=== PATIENT | female | born 1955 | race Caucasian/White ===

== ENCOUNTER 2018-09-25 09:11 | Inpatient (IN) | payer OTHER, SELFPAY ==
[2018-09-25] VITALS (15 sets, daily range): BP systolic 126–166; BP diastolic 65–85; PULSE 94–115; RESP 16–28; TEMP 36.5–38.3; O2SAT 89–94; BMI 33.8; BMI 41.2
--- NOTE | 2018-09-25 09:28 | EKG12_ITS ---
Test Reason : SOB Blood Pressure : / mmHG Vent. Rate : 101 BPM Atrial Rate : 101 BPM P-R Int : 154 ms QRS Dur : 086 ms QT Int : 348 ms P-R-T Axes : 044 -07 033 degrees QTc Int : 451 ms Sinus tachycardia Nonspecific ST abnormality Abnormal ECG Confirmed by KATHLEEN TELLEZ ([id number]), technical writer and editor CATRINA ROSA ([id number]) on 09/27/2018 10:55:45 AM Referred By: Azam Mcintyre Confirmed By:KATHLEEN TELLEZ
[2018-09-25] MEDS: Ipratropium/Albuterol Sulfate 3 ML AMPUL.NEB INHALATION ×3 (09:41→19:15)
--- NOTE | 2018-09-25 09:43 | ED.VISSUMM ---
- ER Visit Summary Date of Service: 09/25/18 Chief Complaint: Shortness of breath History of Present Illness: The patient is a 63 F who presents with shortness of breath that is been getting worse since yesterday. Patient went to an urgent care today. Patient was noted to have a pulse oximeter reading of 87% on room air at the urgent care. Patient was also noted to have a temperature of 100.2. Patient was then referred to the emergency department. Patient admits to a cough with some green and yellow sputum. Patient admits to some mild dull chest pain. Patient also admits to a sore throat and some bilateral ear pain. Physical Examination: Vital signs are stable except for mild tachycardia of 110 and a mild tachypnea of 22. Pulse oximeter is 89% on room air.. Patient is afebrile here. Patient is in no acute distress. Oral mucosa is pink and moist. Neck is supple. Trachea is midline. There is no JVD noted. Heart was regular and slightly tachycardic. Lungs showed diffuse expiratory wheezing. There is good respiratory effort noted. Abdomen is soft and nontender. Cranial nerves II through XII are intact. There are no focal motor or sensory deficits noted. Test Results: EKG showed normal sinus rhythm with a rate of 101. There are no acute ST or T wave changes noted. There are no prior EKGs available for comparison. PA and lateral chest x-rays obtained. There are changes consistent with COPD but no acute cardiopulmonary process. CBC and basic metabolic profile were essentially within normal limits. Troponin was less than 0.015. Lactate was normal at 1.8. Emergency Department Course and Treatment: Patient was given a DuoNeb aerosol here. Patient was given a dose of Tylenol for her headache and ear pain. Patient was given a repeat albuterol aerosol. Patient still felt short of breath. She still had wheezing on exam. Patient was given a third albuterol aerosol and Solu-Medrol. Case was discussed with the hospitalist. Patient will be admitted for observation to the MedSurg unit. Disposition: Admit for observation Impression: COPD exacerbation This note was generated with [employer] dictation software. It may contain incorrect words, spelling, and punctuation that were not noted in review of the chart prior to signing ED Disposition - Plan for ED Patient: Disposition: Acute Care Hospital [facility] Diagnosis: COPD exacerbation Referrals: Jevon Guzman III, MD [Primary Care Provider] -
--- NOTE | 2018-09-25 09:46 | ED.DCSUM_ITS ---
- ER Visit Summary Date of Service: 09/25/18 Chief Complaint: Shortness of breath History of Present Illness: The patient is a 63 F who presents with shortness of breath that is been getting worse since yesterday. Patient went to an urgent care today. Patient was noted to have a pulse oximeter reading of 87% on room air at the urgent care. Patient was also noted to have a temperature of 100.2. Patient was then referred to the emergency department. Patient admits to a cough with some green and yellow sputum. Patient admits to some mild dull chest pain. Patient also admits to a sore throat and some bilateral ear pain. Physical Examination: Vital signs are stable except for mild tachycardia of 110 and a mild tachypnea of 22. Pulse oximeter is 89% on room air.. Patient is afebrile here. Patient is in no acute distress. Oral mucosa is pink and moist. Neck is supple. Trachea is midline. There is no JVD noted. Heart was regular and slightly tachycardic. Lungs showed diffuse expiratory wheezing. There is good respiratory effort noted. Abdomen is soft and nontender. Cranial nerves II through XII are intact. There are no focal motor or sensory deficits noted. Test Results: EKG showed normal sinus rhythm with a rate of 101. There are no acute ST or T wave changes noted. There are no prior EKGs available for comparison. PA and lateral chest x-rays obtained. There are changes consistent with COPD but no acute cardiopulmonary process. CBC and basic metabolic profile were essentially within normal limits. Troponin was less than 0.015. Lactate was normal at 1.8. Emergency Department Course and Treatment: Patient was given a DuoNeb aerosol here. Patient was given a dose of Tylenol for her headache and ear pain. Patient was given a repeat albuterol aerosol. Patient still felt short of breath. She still had wheezing on exam. Patient was given a third albuterol aerosol and Solu-Medrol. Case was discussed with the hospitalist. Patient will be admitted for observation to the MedSurg unit. Disposition: Admit for observation Impression: COPD exacerbation This note was generated with [employer] dictation software. It may contain incorrect words, spelling, and punctuation that were not noted in review of the chart prior to signing ED Disposition - Plan for ED Patient: Disposition: Acute Care Hospital [facility] Diagnosis: COPD exacerbation Referrals: Jevon Guzman III, MD [Primary Care Provider] -
[2018-09-25 09:59] LABS: Absolute Lymphocyte Count 0.35 X10^3/ul (0.83-4.51); Absolute Neutrophil Count 8.3 X10^3/uL (2.0-7.7); Basophil# 0.01 X10^3/uL; Basophil% 0.1 % (0-1); Hematocrit 40.6 % (37-47); Hemoglobin 13.4 g/dl (12.0-15.0); Lymphocyte # 0.35 X10^3/ul (4.0); Lymphocyte % 3.7 % (19-41); Mean Corpuscular Hgb 29.8 pg (27.0-32.0); Mean Corpuscular Volume 90.4 fL (81-99); Mean Platelet Vol. 10.8 fl (6.2-12.0); Monocyte# 0.63 X10^3/uL; Monocyte% 6.7 % (0-10); Neutrophil # 8.33 X10^3/uL (2.7-7.7); Neutrophil % 89.3 % (47-70); Platelet Count 218 K/mm3 (150-450); RBC Distribution Width CV 13.3 % (11.6-14.6); RBC Distribution Width SD 44.2 fl (35.1-43.9); Red Blood Count 4.49 M/mm3 (4.2-5.4); White Blood Count 9.3 K/mm3 (4.4-11.0)
[2018-09-25 10:01] LABS: Differential Indicated SCAN CRITERIA MET; POSITIVE COUNT NO; POSITIVE DIFFERENTIAL YES; POSITIVE MORPHOLOGY NO
[2018-09-25] MEDS: Albuterol 2.5 MG/3 ML VIAL.NEB. INHALATION ×2 (10:04→11:14)
--- NOTE | 2018-09-25 10:10 | RAD_ITS ---
STUDY: X-RAY CHEST REASON FOR EXAM: Female, 63 years old. Shortness of breath. TECHNIQUE: PA and lateral views of the chest. COMPARISON: April 02, 2019. FINDINGS: Cardiac silhouette unremarkable. Pulmonary vascularity unremarkable. Aorta calcified. No focal patchy airspace opacities. No pleural effusions. COPD/hyperaeration. Bibasilar atelectasis/scarring. Upper abdomen unremarkable. Osseous structures are demineralized. No pneumothorax. Degenerative changes at the shoulders and spine. RAD/Chest PA and Lateral IMPRESSION: No acute cardiopulmonary findings COPD/hypoaeration with bibasilar atelectasis/scarring Electronically Signed: Yogesh Hammonds DO at 10:32 EDT Tel , Service support ,
[2018-09-25 10:11] LABS: Anion Gap 4 (5-15); BUN 6 mg/dL (7-18); BUN/Creat Ratio 9.1 RATIO (10-20); Calcium,Total 8.4 mg/dL (8.5-10.1); Chloride 102 mmol/L (98-107); Creatinine, Serum 0.66 mg/dL (0.55-1.02); EST Glomerular Filtration Rate 96 mL/min (>60); Est Glom Filt Rate - Afr Amer 116 mL/min (>60); Glucose 129 mg/dL (74-106); Potassium 3.6 mmol/L (3.5-5.1); Sodium Level 135 mmol/L (136-145)
[2018-09-25 10:12] LABS: Lactic Acid 1.8 mmol/L (0.4-2.0)
[2018-09-25 10:24] LABS: Differential Comment SCANNED
[2018-09-25] MEDS: Acetaminophen 500 MG Tablet 1000 MG PO (10:36)
[2018-09-25] MEDS: MethylPREDNISolone 125 MG/2 ML Vial IV (11:01)
[2018-09-25] MEDS: Morphine 4 MG/ML Syringe IV (11:55)
--- NOTE | 2018-09-25 12:05 | CASEMGMT ---
RN CM Assessment Introduced role of RN CM to patient.? Patient is alert, oriented and able?to participate in RN CM Assessment. ?Care providers, pharmacy, and demographics verified. Presentation: SOB Admit Dx: COPD/Asthma Exacerbation Re-Admit: No Barriers/Issues: None PCP: Jevon Guzman Specialists: None Preferred Pharmacy: [facility] Insurance: MMO Rx Benefit: Yes? LNOK: [facility] [place] LW/HPOA: No, Denies Offered Information, states thinks she already has the information. Living Arrangements:?Lives with her and son in a 2 story home, 4 steps to enter. ADL?s: Independent with ambulation and ADL's Transportation: Patient drives, or her sister will transport on DC DME: Nebulizer, No preference on Agency if DME needed. HHC: None SNF: None Goal: Home, does not think she will need anything, denies issues or concerns. DC PLAN: Home with possible Home O2. NIRAJ Degroot
--- NOTE | 2018-09-25 13:17 | HP.PCM_ITS ---
Problem List (1) Left acute otitis media Status: Acute (2) Asthma with COPD with exacerbation Status: Acute (3) Hypertension Status: Chronic (4) dyslipidemia Status: Chronic (5) Degenerative joint disease Status: Chronic History of Present Illness Date of Admission: 09/25/18 Chief Complaint: Shortness of breath since yesterday The patient is a 63 year old F with history of asthma came to ED with shortness of breath since day before admission. She also has cough for about 4 months and had antibiotic more than 3 months ago by PCP. She also had fever chills, productive cough with greenish-yellow sputum and interscapular pleuritic chest pain on coughing and deep inspiration. She has history of sinusitis and had sinus procedure done about 4 years ago. Complains of sore throat postnasal drip and ear pain. [] In ED, her temperature 100.9 ?F, tachycardia, 115/min, tachypnea respiratory rate 21 to 23/min and pulse ox 91% on 4 L of oxygen. Chest x-ray does not show acute infiltrate. She also had previous chest x-ray negative about 2 3 months ago by PCP. Past Medical History Past Medical History (Chronic Problems): Chronic Problems COPD exacerbation (Chronic) Hypertension (Chronic) dyslipidemia (Chronic) Degenerative joint disease (Chronic) Allergies levofloxacin [From Levaquin] Allergy (Verified 09/25/18 09:12) Rash Sulfa (Sulfonamide Antibiotics) Allergy (Verified 09/25/18 09:12) Unknown Home Medications: Ambulatory Orders Medication Instructions Recorded Albuterol IH (ProAir) [Proair Hfa 2 puff INHALATION Q4H PRN PRN 09/25/18 (SP)Vent Pts] Amlodipine [Norvasc] 10 mg PO DAILY 09/25/18 Gabapentin [Neurontin] 300 mg PO 4X/DAY PRN PRN 09/25/18 Hydrochlorothiazide 12.5 mg PO DAILY 09/25/18 Meloxicam [Mobic] 15 mg PO DAILY 09/25/18 Montelukast [Singulair] 10 mg PO DAILY 09/25/18 Simvastatin [Zocor] 20 mg PO QHS 09/25/18 Smoking Status: Former smoker - *Family History Paternal History Items: Heart Disease Review of Systems Constitutional: Denies: Chills, Fever, Weight Change HEENT: Reports: Ear Pain, Hearing Changes, Post Nasal Drip, Sinus Congestion, Sore Throat. Denies: Head Aches Cardiovascular: Reports: - - Interscapular pleuritic chest pain. Denies: Chest Pain, Palpitations Respiratory: Reports: Cough, Pleuritic Pain, Shortness of Breath, Shortness of breath upon exertion. Denies: Shortness of breath at rest, Sputum production Gastrointestinal: Denies: Abdominal Pain, Nausea, Vomiting Genitourinary: Denies: Dysuria, Frequency, Urgency Musculoskeletal: Reports: Joint Pain. Denies: Joint Tenderness Skin: Denies: Rash, Wounds Neurological: Denies: Numbness, Tingling, Focal weakness Psychiatric: Denies: Anxiety, Depression, Homicidal Ideations, Suicidal Ideations Hematologic/ Lymphatic: Denies: Easy Bruising, Easy Bleeding VTE Information - Inpt Only VTE Present on Admission: No VTE Mechan Device Prophylaxis: None VTE Pharm Prophylaxis ordered?: Yes Patient Problems: Active and Suspected Problems Left acute otitis media (Acute) Asthma with COPD with exacerbation (Acute) - Physical Exam General: Alert, Oriented x3, Cooperative HEENT: Atraumatic, PERRLA, EOMI, Normocephalic, - - On otoscopy exam, left ear TM retracted with effusion. Yellowish crust seen in left ear canal. No clear drainage. Tenderness present. Right ear: TM retracted with mild effusion but no tenderness Oral: No Gingival or Mucosal Lesions/ Ulcerations, - - No inflammation of soft palate or deep part of tongue Neck: Supple, No JVD, Negative Carotid Bruits Lungs: Diminished, Rhonchi, Short of Breath, Tachypneic, Wheezes Cardiovascular: Regular rate, Regular Rhythm, Normal S1, Normal S2, No murmurs Abdomen: Bowel Sounds Present, Soft, Non Tender, Non-Distended Extremities: Capillary Refill Less than 3 Seconds, Edema Skin: No rashes, No breakdown Musculoskeletal: No Tenderness to Palpation of Joints or Extremities, Arthritic Changes Lymphatic: No Cervical, Supraclavicular, or Inguinal Adenopathy Neurological: Cranial nerves II-XII grossly intact, Deep Tendon Reflexes 2+/4 and Symmetrical, Neuro grossly intact, Motor Exam 5/5 strength throughout Psych/Mental Status: Normal Affect, Appropriate Vital Signs Temp Pulse Resp BP Pulse Ox 99 F 106 H 23 H 136/75 H 91 09/25/18 12:10 09/25/18 12:10 09/25/18 12:10 09/25/18 12:10 09/25/18 12:10 Oxygen Flow Rate (L/min) 4 Oxygen Delivery Method Nasal Cannula Weight: 185 lb Body Mass Index (BMI) 33.8 Microbiology Past 72 Hours 09/25/18 09:47 Influenza Types A,B Direct FA (MICHELLE) - Final Mucosa - Nose Laboratory Tests Past 24 Hrs 09/25/18 09/25/18 09/25/18 09:40 09:40 09:40 WBC 9.3 RBC 4.49 Hgb 13.4 Hct 40.6 MCV 90.4 MCH 29.8 MCHC 33.0 RDW 13.3 RDW Differential 44.2 H Plt Count 218 MPV 10.8 Immature Gran % (Auto) 0.200 Neut % (Auto) 89.3 H Lymph % (Auto) 3.7 L [place] % (Auto) 6.7 Eos % (Auto) 0.0 Baso % (Auto) 0.1 Absolute Neuts (auto) 8.3 H Absolute Lymphs (auto) 0.35 L Total Counted Not Reportable Differential Comment SCANNED Sodium 135 L Potassium 3.6 Chloride 102 Carbon Dioxide 29.0 Anion Gap 4 L BUN 6 L Creatinine 0.66 Estim Creat Clear Calc 69.90 Est GFR (MDRD) Af Amer 116 Est GFR (MDRD) Non-Af 96 BUN/Creatinine Ratio 9.1 L Glucose 129 H Lactic Acid 1.8 Calcium 8.4 L Troponin I < 0.015 Assessment/Plan All Active Problems Left acute otitis media (Acute) Asthma with COPD with exacerbation (Acute) The patient is a 63 year old F with history of asthma came to ED with shortness of breath since day before admission. She also has cough for about 4 months and had antibiotic more than 3 months ago by PCP. She also had fever chills, productive cough with greenish-yellow sputum and interscapular pleuritic chest pain on coughing and deep inspiration. She has history of sinusitis and had sinus procedure done about 4 years ago. Complains of sore throat postnasal drip and ear pain. [] In ED, her temperature 100.9 ?F, tachycardia, 115/min, tachypnea respiratory rate 21 to 23/min and pulse ox 91% on 4 L of oxygen. Chest x-ray does not show acute infiltrate. She also had previous chest x-ray negative about 2 3 months ago by PCP. 1. Asthma/COPD asthmatic exacerbation: Patient is being admitted to MedSur floor. On bronchodilator, IV Solu-Medrol, incentive spirometry and chest physiotherapy. Continue Singulair sputum culture, respiratory panel have been ordered. Patient does not have leukocytosis. 2. Left acute otitis media with bilateral middle ear effusion: Started on IV Unasyn. Patient has URI symptoms. Anti-inflammatory pain medication. 3. Hyponatremia: On IV fluid normal saline. 4. Hypertension and dyslipidemia and peripheral neuropathy: Patient is on Norvasc, HCTZ and on simvastatin. Continue Neurontin. Obesity grade 3 and chronic degenerative joint disease: Patient is on Mobic. DVT prophylaxis: On Lovenox 40 mg subcu daily Clinical Impression(s) from Imaging Studies Chest X-Ray 09/25/18 10:10 IMPRESSION: No acute cardiopulmonary findings COPD/hypoaeration with bibasilar atelectasis/scarring 09/25/18 09:40: WBC 9.3, RBC 4.49, Hgb 13.4, Hct 40.6, MCV 90.4, MCH 29.8, MCHC 33.0, RDW 13.3, RDW Differential 44.2 H, Plt Count 218, MPV 10.8, Immature Gran % (Auto) 0.200, Neut % (Auto) 89.3 H, Lymph % (Auto) 3.7 L, [place] % (Auto) 6.7, Eos % (Auto) 0.0, Baso % (Auto) 0.1, Absolute Neuts (auto) 8.3 H, Absolute Lymphs (auto) 0.35 L, Total Counted Not Reportable, Differential Comment SCANNED 09/25/18 09:40: Sodium 135 L, Potassium 3.6, Chloride 102, Carbon Dioxide 29.0, Anion Gap 4 L, BUN 6 L, Creatinine 0.66, Estim Creat Clear Calc 69.90, Est GFR (MDRD) Af Amer 116, Est GFR (MDRD) Non-Af 96, BUN/Creatinine Ratio 9.1 L, Glucose 129 H, Calcium 8.4 L, Troponin I < 0.015 09/25/18 09:40: Lactic Acid 1.8 Code Visit OBSV E&M: 19352 Initial observation care L3
[2018-09-25] MEDS: 0.9% Normal Saline 1,000 ML 100 ML IV (15:46)
[2018-09-25] MEDS: guaiFENesin 1,200 MG Tablet 1200 MG PO ×2 (15:47→21:29)
[2018-09-25] MEDS: Enoxaparin 40 MG/0.4 ML Syringe SC (15:47)
[2018-09-25] MEDS: oxyCODONE 5 MG Tablet PO (19:32)
[2018-09-25] MEDS: Atorvastatin Calcium 10 MG Tablet PO (21:29)
[2018-09-25] MEDS: Gabapentin 300 MG Capsule PO (21:36)
[2018-09-26] VITALS (9 sets, daily range): BP systolic 118–142; BP diastolic 68–76; PULSE 71–92; RESP 14–20; TEMP 36.5–36.9; O2SAT 90–95
[2018-09-26 05:51] LABS: Absolute Lymphocyte Count 0.39 X10^3/ul (0.83-4.51); Absolute Neutrophil Count 8.8 X10^3/uL (2.0-7.7); Differential Indicated SCAN CRITERIA MET; Hemoglobin 12.8 g/dl (12.0-15.0); Lymphocyte # 0.39 X10^3/ul (4.0); Lymphocyte % 4.1 % (19-41); Mean Corpuscular Hgb 29.3 pg (27.0-32.0); Mean Corpuscular Volume 91.5 fL (81-99); Mean Platelet Vol. 10.8 fl (6.2-12.0); Monocyte# 0.41 X10^3/uL; Monocyte% 4.3 % (0-10); Neutrophil # 8.79 X10^3/uL (2.7-7.7); Neutrophil % 91.4 % (47-70); POSITIVE COUNT NO; POSITIVE DIFFERENTIAL YES; POSITIVE MORPHOLOGY NO; Platelet Count 211 K/mm3 (150-450); RBC Distribution Width CV 13.1 % (11.6-14.6); RBC Distribution Width SD 43.8 fl (35.1-43.9); Red Blood Count 4.37 M/mm3 (4.2-5.4); White Blood Count 9.6 K/mm3 (4.4-11.0)
[2018-09-26] MEDS: 0.9% NaCl Peripheral Flush Adult/Peds IV ×3 (06:20→22:12)
[2018-09-26] MEDS: Ipratropium/Albuterol Sulfate 3 ML AMPUL.NEB INHALATION ×5 (07:05→23:03)
[2018-09-26] MEDS: guaiFENesin 1,200 MG Tablet 1200 MG PO ×2 (09:22→22:12)
[2018-09-26] MEDS: amLODIPine 10 MG Tablet PO (09:22)
[2018-09-26] MEDS: Meloxicam 15 MG Tablet PO (09:22)
[2018-09-26] MEDS: hydroCHLOROthiazide 12.5mg 12.5 MG PO (09:22)
[2018-09-26] MEDS: Enoxaparin 40 MG/0.4 ML Syringe SC (09:22)
[2018-09-26] MEDS: Montelukast 10 MG Tablet PO (09:22)
[2018-09-26] MEDS: Acetaminophen 325 MG Tablet 650 MG PO (11:57)
[2018-09-26 12:11] LABS: Bedside Glucose 201 mg/dL (70-110)
--- NOTE | 2018-09-26 14:16 | PCM.PN.HOSP ---
Patient Problems: Active and Suspected Problems Left acute otitis media (Acute) Asthma with COPD with exacerbation (Acute) Subjective: The patient is still more short of breath and wheezing although better than yesterday. Pulse ox 93% on 3 L of oxygen. No fever or chills. Patient has history of his smoking 3 to 4 cigarettes daily for about 3 years but has history of asthma since early teenage. Vitals/I&O's: Vital Signs Temp Pulse Resp BP Pulse Ox 98.2 F 81 20 H 133/73 H 93 09/26/18 08:47 09/26/18 11:08 09/26/18 11:08 09/26/18 08:47 09/26/18 11:08 Oxygen Flow Rate (L/min) 3 Oxygen Delivery Method Nasal Cannula Weight: 225 lb 4.999 oz Body Mass Index (BMI) 41.2 Intake and Output for Last 24 Hours 09/24/18 09/25/18 09/26/18 23:59 23:59 23:59 Intake Total 807 / 807 1385 / 1385 Balance 807 / 807 1385 / 1385 General: Alert, Oriented x3, Cooperative HEENT: Atraumatic, PERRLA, EOMI, Normocephalic Neck: Supple, No JVD, Negative Carotid Bruits Lungs: Diminished, Short of Breath Cardiovascular: Regular rate, Regular Rhythm, Normal S1, Normal S2, No murmurs Abdomen: Bowel Sounds Present, Soft, Non Tender Extremities: No edema, Capillary Refill Less than 3 Seconds Skin: No rashes, No breakdown Musculoskeletal: No Tenderness to Palpation of Joints or Extremities, Arthritic Changes Lymphatic: No Cervical, Supraclavicular, or Inguinal Adenopathy Neurological: Cranial nerves II-XII grossly intact, Deep Tendon Reflexes 2+/4 and Symmetrical, Neuro grossly intact Psych/Mental Status: Normal Affect, Appropriate Microbiology Past 72 Hours 09/25/18 15:15 Sputum, Expectorated/Coughed Gram Stain - Final 09/25/18 09:47 Mucosa - Nasopharyngeal Respiratory Panel (PCR) - Final Rhinovirus 09/25/18 15:40 Urine, Random Legionella Antigen - Final 09/25/18 15:40 Urine, Random Streptococcus pneumoniae Antigen (M - Final 09/25/18 15:30 Mucosa - Throat Group A Streptococcus Rapid Screen - Preliminary 09/25/18 09:47 Mucosa - Nose Influenza Types A,B Direct FA ([facility]) - Final Laboratory Results 09/26/18 05:25: WBC 9.6, RBC 4.37, Hgb 12.8, Hct 40.0, MCV 91.5, MCH 29.3, MCHC 32.0, RDW 13.1, RDW Differential 43.8, Plt Count 211, MPV 10.8, Immature Gran % (Auto) 0.200, Neut % (Auto) 91.4 H, Lymph % (Auto) 4.1 L, [place] % (Auto) 4.3, Eos % (Auto) 0.0, Baso % (Auto) 0.0, Absolute Neuts (auto) 8.8 H, Absolute Lymphs (auto) 0.39 L, Total Counted Not Reportable 09/26/18 11:49: POC Glucose 201 H Current Medications Acetaminophen (Tylenol) 650 mg PO Q6H PRN PRN PRN Reason: Mild Pain (scale 0-3)/T>100.7 Last Admin: 09/26/18 11:57 Dose: 650 mg Albuterol Sulfate (Ventolin Aerosols) 2.5 mg INHALATION Q2H PRN PRN PRN Reason: SHORTNESS OF BREATH Albuterol/Ipratropium (Duoneb) 3 ml INHALATION Q4HWA.RT [facility] Last Admin: 09/26/18 11:08 Dose: 3 ml Amlodipine Besylate (Norvasc) 10 mg PO DAILY [facility] Last Admin: 09/26/18 09:22 Dose: 10 mg Atorvastatin Calcium (Lipitor) 10 mg PO QHS [facility] Last Admin: 09/25/18 21:29 Dose: 10 mg Bisacodyl (Dulcolax) 10 mg RECTAL DAILY PRN PRN PRN Reason: Constipation Dextrose (D50w Syringe) 0 gm IV X1 PRN; Protocol PRN Reason: Hypoglycemia Docusate Sodium (Colace) 200 mg PO BID PRN PRN PRN Reason: Constipation Enoxaparin Sodium (Lovenox) 40 mg SC DAILY [facility] Last Admin: 09/26/18 09:22 Dose: 40 mg Gabapentin (Neurontin) 300 mg PO 4X/DAY PRN PRN PRN Reason: PAIN Last Admin: 09/25/18 21:36 Dose: 300 mg Glucagon () 1 mg IM .X1 PRN PRN Reason: Hypoglycemia Guaifenesin (Mucinex) 1,200 mg PO BID [facility] Last Admin: 09/26/18 09:22 Dose: 1,200 mg Hydrochlorothiazide () 12.5 mg PO DAILY [facility] Last Admin: 09/26/18 09:22 Dose: 12.5 mg Ampicillin Sodium/Sulbactam (Sodium 3 gm/ Sodium Chloride) 112 mls @ 150 mls/hr IV Q8 [facility] Last Admin: 09/26/18 13:17 Dose: 150 mls/hr Insulin Human Lispro (Humalog Kwikpen (Bkc)) 0 unit SQ ACHS [facility]; Protocol Meloxicam (Mobic) 15 mg PO DAILY [facility] Last Admin: 09/26/18 09:22 Dose: 15 mg Methylprednisolone (Solu-Medrol) 40 mg IV Q8 [facility] Stop: 09/26/18 22:01 Last Admin: 09/26/18 13:16 Dose: 40 mg Montelukast Sodium (Singulair) 10 mg PO DAILY [facility] Last Admin: 09/26/18 09:22 Dose: 10 mg Ondansetron HCl (Zofran) 4 mg IV Q8H PRN PRN PRN Reason: Nausea Oxycodone HCl (Oxyir) 5 mg PO Q4H PRN PRN PRN Reason: Moderate Pain (pain scale 4-5) Last Admin: 09/25/18 19:32 Dose: 5 mg Prednisone () 40 mg PO DAILY@0800 [facility] Sodium Chloride () 5 - 15 ml IV UD PRN PRN Reason: SALINE FLUSH Last Admin: 09/26/18 13:17 Dose: 10 ml Medical Necessity - Tobacco Use Smoking Status: Former smoker Tobacco Use: Cigarettes Assessment/Plan All Active Problems Left acute otitis media (Acute) Asthma with COPD with exacerbation (Acute) The patient is a 63 year old F with history of asthma came to ED with shortness of breath since day before admission. She also has cough for about 4 months and had antibiotic more than 3 months ago by PCP. She also had fever chills, productive cough with greenish-yellow sputum and interscapular pleuritic chest pain on coughing and deep inspiration. She has history of sinusitis and had sinus procedure done about 4 years ago. Complains of sore throat postnasal drip and ear pain. [] In ED, her temperature 100.9 ?F, tachycardia, 115/min, tachypnea respiratory rate 21 to 23/min and pulse ox 91% on 4 L of oxygen. Chest x-ray does not show acute infiltrate. She also had previous chest x-ray negative about 2 3 months ago by PCP. 1. Asthma/COPD asthmatic exacerbation most probably secondary to rhinovirus viral bronchitis: [facility] On bronchodilator, IV Solu-Medrol, incentive spirometry and chest physiotherapy. Respiratory panel is positive for rhinovirus. Prelim Gram stain shows 4+ gram-negative coccobacillus. Urinary antigens are negative. Continue Singulair Patient does not have leukocytosis. Patient is still short of breath and wheezing and need 1-2 more days for asthma exacerbation. 2. Left acute otitis media with bilateral middle ear effusion: Started on IV Unasyn. Patient has URI symptoms. Anti-inflammatory pain medication. Follow-up with ENT Dr. Yahir Palma as an outpatient. 3. Hyponatremia: On IV fluid normal saline. Repeat BMP today 4. Hypertension and dyslipidemia and peripheral neuropathy: Patient is on Norvasc, HCTZ and on simvastatin. Continue Neurontin. Obesity grade 3 and chronic degenerative joint disease: Patient is on Mobic. DVT prophylaxis: On Lovenox 40 mg subcu daily As the patient is still symptomatic with shortness of breath and, wheezy and requires 3 L of oxygen patient needs 1 or 2 more days for treatment and patient is being converted from observation to inpatient. Clinical Impression(s) from Imaging Studies Chest X-Ray 09/25/18 10:10 IMPRESSION: No acute cardiopulmonary findings COPD/hypoaeration with bibasilar atelectasis/scarring Active Medications Acetaminophen (Tylenol) 650 mg PO Q6H PRN PRN PRN Reason: Mild Pain (scale 0-3)/T>100.7 Last Admin: 09/26/18 11:57 Dose: 650 mg Albuterol Sulfate (Ventolin Aerosols) 2.5 mg INHALATION Q2H PRN PRN PRN Reason: SHORTNESS OF BREATH Albuterol/Ipratropium (Duoneb) 3 ml INHALATION Q4HWA.RT [facility] Last Admin: 09/26/18 11:08 Dose: 3 ml Amlodipine Besylate (Norvasc) 10 mg PO DAILY [facility] Last Admin: 09/26/18 09:22 Dose: 10 mg Atorvastatin Calcium (Lipitor) 10 mg PO QHS [facility] Last Admin: 09/25/18 21:29 Dose: 10 mg Bisacodyl (Dulcolax) 10 mg RECTAL DAILY PRN PRN PRN Reason: Constipation Dextrose (D50w Syringe) 0 gm IV X1 PRN; Protocol PRN Reason: Hypoglycemia Docusate Sodium (Colace) 200 mg PO BID PRN PRN PRN Reason: Constipation Enoxaparin Sodium (Lovenox) 40 mg SC DAILY [facility] Last Admin: 09/26/18 09:22 Dose: 40 mg Gabapentin (Neurontin) 300 mg PO 4X/DAY PRN PRN PRN Reason: PAIN Last Admin: 09/25/18 21:36 Dose: 300 mg Glucagon () 1 mg IM .X1 PRN PRN Reason: Hypoglycemia Guaifenesin (Mucinex) 1,200 mg PO BID [facility] Last Admin: 09/26/18 09:22 Dose: 1,200 mg Hydrochlorothiazide () 12.5 mg PO DAILY [facility] Last Admin: 09/26/18 09:22 Dose: 12.5 mg Ampicillin Sodium/Sulbactam (Sodium 3 gm/ Sodium Chloride) 112 mls @ 150 mls/hr IV Q8 [facility] Last Admin: 09/26/18 13:17 Dose: 150 mls/hr Insulin Human Lispro (Humalog Kwikpen (Bkc)) 0 unit SQ ACHS [facility]; Protocol Meloxicam (Mobic) 15 mg PO DAILY [facility] Last Admin: 09/26/18 09:22 Dose: 15 mg Methylprednisolone (Solu-Medrol) 40 mg IV Q8 [facility] Stop: 09/26/18 22:01 Last Admin: 09/26/18 13:16 Dose: 40 mg Montelukast Sodium (Singulair) 10 mg PO DAILY [facility] Last Admin: 09/26/18 09:22 Dose: 10 mg Ondansetron HCl (Zofran) 4 mg IV Q8H PRN PRN PRN Reason: Nausea Oxycodone HCl (Oxyir) 5 mg PO Q4H PRN PRN PRN Reason: Moderate Pain (pain scale 4-5) Last Admin: 09/25/18 19:32 Dose: 5 mg Prednisone () 40 mg PO DAILY@0800 [facility] Sodium Chloride () 5 - 15 ml IV UD PRN PRN Reason: SALINE FLUSH Last Admin: 09/26/18 13:17 Dose: 10 ml Code Visit Inpatient E&M: [id number] Subs Hosp L2
--- NOTE | 2018-09-26 14:23 | PN_ITS ---
Patient Problems: Active and Suspected Problems Left acute otitis media (Acute) Asthma with COPD with exacerbation (Acute) Subjective: The patient is still more short of breath and wheezing although better than yesterday. Pulse ox 93% on 3 L of oxygen. No fever or chills. Patient has history of his smoking 3 to 4 cigarettes daily for about 3 years but has history of asthma since early teenage. Vitals/I&O's: Vital Signs Temp Pulse Resp BP Pulse Ox 98.2 F 81 20 H 133/73 H 93 09/26/18 08:47 09/26/18 11:08 09/26/18 11:08 09/26/18 08:47 09/26/18 11:08 Oxygen Flow Rate (L/min) 3 Oxygen Delivery Method Nasal Cannula Weight: 225 lb 4.999 oz Body Mass Index (BMI) 41.2 Intake and Output for Last 24 Hours 09/24/18 09/25/18 09/26/18 23:59 23:59 23:59 Intake Total 807 / 807 1385 / 1385 Balance 807 / 807 1385 / 1385 General: Alert, Oriented x3, Cooperative HEENT: Atraumatic, PERRLA, EOMI, Normocephalic Neck: Supple, No JVD, Negative Carotid Bruits Lungs: Diminished, Short of Breath Cardiovascular: Regular rate, Regular Rhythm, Normal S1, Normal S2, No murmurs Abdomen: Bowel Sounds Present, Soft, Non Tender Extremities: No edema, Capillary Refill Less than 3 Seconds Skin: No rashes, No breakdown Musculoskeletal: No Tenderness to Palpation of Joints or Extremities, Arthritic Changes Lymphatic: No Cervical, Supraclavicular, or Inguinal Adenopathy Neurological: Cranial nerves II-XII grossly intact, Deep Tendon Reflexes 2+/4 and Symmetrical, Neuro grossly intact Psych/Mental Status: Normal Affect, Appropriate Microbiology Past 72 Hours 09/25/18 15:15 Sputum, Expectorated/Coughed Gram Stain - Final 09/25/18 09:47 Mucosa - Nasopharyngeal Respiratory Panel (PCR) - Final Rhinovirus 09/25/18 15:40 Urine, Random Legionella Antigen - Final 09/25/18 15:40 Urine, Random Streptococcus pneumoniae Antigen (M - Final 09/25/18 15:30 Mucosa - Throat Group A Streptococcus Rapid Screen - Preliminary 09/25/18 09:47 Mucosa - Nose Influenza Types A,B Direct FA ([facility]) - Final Laboratory Results 09/26/18 05:25: WBC 9.6, RBC 4.37, Hgb 12.8, Hct 40.0, MCV 91.5, MCH 29.3, MCHC 32.0, RDW 13.1, RDW Differential 43.8, Plt Count 211, MPV 10.8, Immature Gran % (Auto) 0.200, Neut % (Auto) 91.4 H, Lymph % (Auto) 4.1 L, [place] % (Auto) 4.3, Eos % (Auto) 0.0, Baso % (Auto) 0.0, Absolute Neuts (auto) 8.8 H, Absolute Lymphs (auto) 0.39 L, Total Counted Not Reportable 09/26/18 11:49: POC Glucose 201 H Current Medications Acetaminophen (Tylenol) 650 mg PO Q6H PRN PRN PRN Reason: Mild Pain (scale 0-3)/T>100.7 Last Admin: 09/26/18 11:57 Dose: 650 mg Albuterol Sulfate (Ventolin Aerosols) 2.5 mg INHALATION Q2H PRN PRN PRN Reason: SHORTNESS OF BREATH Albuterol/Ipratropium (Duoneb) 3 ml INHALATION Q4HWA.RT [facility] Last Admin: 09/26/18 11:08 Dose: 3 ml Amlodipine Besylate (Norvasc) 10 mg PO DAILY [facility] Last Admin: 09/26/18 09:22 Dose: 10 mg Atorvastatin Calcium (Lipitor) 10 mg PO QHS [facility] Last Admin: 09/25/18 21:29 Dose: 10 mg Bisacodyl (Dulcolax) 10 mg RECTAL DAILY PRN PRN PRN Reason: Constipation Dextrose (D50w Syringe) 0 gm IV X1 PRN; Protocol PRN Reason: Hypoglycemia Docusate Sodium (Colace) 200 mg PO BID PRN PRN PRN Reason: Constipation Enoxaparin Sodium (Lovenox) 40 mg SC DAILY [facility] Last Admin: 09/26/18 09:22 Dose: 40 mg Gabapentin (Neurontin) 300 mg PO 4X/DAY PRN PRN PRN Reason: PAIN Last Admin: 09/25/18 21:36 Dose: 300 mg Glucagon () 1 mg IM .X1 PRN PRN Reason: Hypoglycemia Guaifenesin (Mucinex) 1,200 mg PO BID [facility] Last Admin: 09/26/18 09:22 Dose: 1,200 mg Hydrochlorothiazide () 12.5 mg PO DAILY [facility] Last Admin: 09/26/18 09:22 Dose: 12.5 mg Ampicillin Sodium/Sulbactam (Sodium 3 gm/ Sodium Chloride) 112 mls @ 150 mls/hr IV Q8 [facility] Last Admin: 09/26/18 13:17 Dose: 150 mls/hr Insulin Human Lispro (Humalog Kwikpen (Bkc)) 0 unit SQ ACHS [facility]; Protocol Meloxicam (Mobic) 15 mg PO DAILY [facility] Last Admin: 09/26/18 09:22 Dose: 15 mg Methylprednisolone (Solu-Medrol) 40 mg IV Q8 [facility] Stop: 09/26/18 22:01 Last Admin: 09/26/18 13:16 Dose: 40 mg Montelukast Sodium (Singulair) 10 mg PO DAILY [facility] Last Admin: 09/26/18 09:22 Dose: 10 mg Ondansetron HCl (Zofran) 4 mg IV Q8H PRN PRN PRN Reason: Nausea Oxycodone HCl (Oxyir) 5 mg PO Q4H PRN PRN PRN Reason: Moderate Pain (pain scale 4-5) Last Admin: 09/25/18 19:32 Dose: 5 mg Prednisone () 40 mg PO DAILY@0800 [facility] Sodium Chloride () 5 - 15 ml IV UD PRN PRN Reason: SALINE FLUSH Last Admin: 09/26/18 13:17 Dose: 10 ml Medical Necessity - Tobacco Use Smoking Status: Former smoker Tobacco Use: Cigarettes Assessment/Plan All Active Problems Left acute otitis media (Acute) Asthma with COPD with exacerbation (Acute) The patient is a 63 year old F with history of asthma came to ED with shortness of breath since day before admission. She also has cough for about 4 months and had antibiotic more than 3 months ago by PCP. She also had fever chills, productive cough with greenish-yellow sputum and interscapular pleuritic chest pain on coughing and deep inspiration. She has history of sinusitis and had sinus procedure done about 4 years ago. Complains of sore throat postnasal drip and ear pain. [] In ED, her temperature 100.9 ?F, tachycardia, 115/min, tachypnea respiratory rate 21 to 23/min and pulse ox 91% on 4 L of oxygen. Chest x-ray does not show acute infiltrate. She also had previous chest x-ray negative about 2 3 months ago by PCP. 1. Asthma/COPD asthmatic exacerbation most probably secondary to rhinovirus viral bronchitis: [facility] On bronchodilator, IV Solu-Medrol, incentive spirometry and chest physiotherapy. Respiratory panel is positive for rhinovirus. Prelim Gram stain shows 4+ gram- negative coccobacillus. Urinary antigens are negative. Continue Singulair Patient does not have leukocytosis. Patient is still short of breath and wheezing and need 1-2 more days for asthma exacerbation. 2. Left acute otitis media with bilateral middle ear effusion: Started on IV Unasyn. Patient has URI symptoms. Anti-inflammatory pain medication. Follow- up with ENT Dr. Yahir Palma as an outpatient. 3. Hyponatremia: On IV fluid normal saline. Repeat BMP today 4. Hypertension and dyslipidemia and peripheral neuropathy: Patient is on Norvasc, HCTZ and on simvastatin. Continue Neurontin. Obesity grade 3 and chronic degenerative joint disease: Patient is on Mobic. DVT prophylaxis: On Lovenox 40 mg subcu daily As the patient is still symptomatic with shortness of breath and, wheezy and requires 3 L of oxygen patient needs 1 or 2 more days for treatment and patient is being converted from observation to inpatient. Clinical Impression(s) from Imaging Studies Chest X-Ray 09/25/18 10:10 IMPRESSION: No acute cardiopulmonary findings COPD/hypoaeration with bibasilar atelectasis/scarring Active Medications Acetaminophen (Tylenol) 650 mg PO Q6H PRN PRN PRN Reason: Mild Pain (scale 0-3)/T>100.7 Last Admin: 09/26/18 11:57 Dose: 650 mg Albuterol Sulfate (Ventolin Aerosols) 2.5 mg INHALATION Q2H PRN PRN PRN Reason: SHORTNESS OF BREATH Albuterol/Ipratropium (Duoneb) 3 ml INHALATION Q4HWA.RT [facility] Last Admin: 09/26/18 11:08 Dose: 3 ml Amlodipine Besylate (Norvasc) 10 mg PO DAILY [facility] Last Admin: 09/26/18 09:22 Dose: 10 mg Atorvastatin Calcium (Lipitor) 10 mg PO QHS [facility] Last Admin: 09/25/18 21:29 Dose: 10 mg Bisacodyl (Dulcolax) 10 mg RECTAL DAILY PRN PRN PRN Reason: Constipation Dextrose (D50w Syringe) 0 gm IV X1 PRN; Protocol PRN Reason: Hypoglycemia Docusate Sodium (Colace) 200 mg PO BID PRN PRN PRN Reason: Constipation Enoxaparin Sodium (Lovenox) 40 mg SC DAILY [facility] Last Admin: 09/26/18 09:22 Dose: 40 mg Gabapentin (Neurontin) 300 mg PO 4X/DAY PRN PRN PRN Reason: PAIN Last Admin: 09/25/18 21:36 Dose: 300 mg Glucagon () 1 mg IM .X1 PRN PRN Reason: Hypoglycemia Guaifenesin (Mucinex) 1,200 mg PO BID [facility] Last Admin: 09/26/18 09:22 Dose: 1,200 mg Hydrochlorothiazide () 12.5 mg PO DAILY [facility] Last Admin: 09/26/18 09:22 Dose: 12.5 mg Ampicillin Sodium/Sulbactam (Sodium 3 gm/ Sodium Chloride) 112 mls @ 150 mls/hr IV Q8 [facility] Last Admin: 09/26/18 13:17 Dose: 150 mls/hr Insulin Human Lispro (Humalog Kwikpen (Bkc)) 0 unit SQ ACHS [facility]; Protocol Meloxicam (Mobic) 15 mg PO DAILY [facility] Last Admin: 09/26/18 09:22 Dose: 15 mg Methylprednisolone (Solu-Medrol) 40 mg IV Q8 [facility] Stop: 09/26/18 22:01 Last Admin: 09/26/18 13:16 Dose: 40 mg Montelukast Sodium (Singulair) 10 mg PO DAILY [facility] Last Admin: 09/26/18 09:22 Dose: 10 mg Ondansetron HCl (Zofran) 4 mg IV Q8H PRN PRN PRN Reason: Nausea Oxycodone HCl (Oxyir) 5 mg PO Q4H PRN PRN PRN Reason: Moderate Pain (pain scale 4-5) Last Admin: 09/25/18 19:32 Dose: 5 mg Prednisone () 40 mg PO DAILY@0800 [facility] Sodium Chloride () 5 - 15 ml IV UD PRN PRN Reason: SALINE FLUSH Last Admin: 09/26/18 13:17 Dose: 10 ml Code Visit Inpatient E&M: [id number] Subs Hosp L2
[2018-09-26] MEDS: Insulin Lispro 100 UNIT/ML INSULN.PEN SQ ×2 (17:13→22:12)
[2018-09-26 17:31] LABS: Bedside Glucose 190 mg/dL (70-110)
[2018-09-26] MEDS: oxyCODONE 5 MG Tablet PO (20:44)
[2018-09-26] MEDS: Atorvastatin Calcium 10 MG Tablet PO (22:12)
[2018-09-26 22:30] LABS: Bedside Glucose 165 mg/dL (70-110)
[2018-09-27] VITALS (11 sets, daily range): BP systolic 119–134; BP diastolic 59–76; PULSE 74–90; RESP 16–20; TEMP 36.4–36.9; O2SAT 86–96
[2018-09-27 05:57] LABS: Anion Gap 4 (5-15); BUN 13 mg/dL (7-18); BUN/Creat Ratio 20.7 RATIO (10-20); Calcium,Total 8.2 mg/dL (8.5-10.1); Chloride 107 mmol/L (98-107); Creatinine, Serum 0.63 mg/dL (0.55-1.02); EST Glomerular Filtration Rate 102 mL/min (>60); Est Glom Filt Rate - Afr Amer 123 mL/min (>60); Estimated Creatinine Clearance 73.23 ml/min; Glucose 162 mg/dL (74-106); Potassium 4.5 mmol/L (3.5-5.1); Sodium Level 142 mmol/L (136-145)
[2018-09-27] MEDS: Ipratropium/Albuterol Sulfate 3 ML AMPUL.NEB INHALATION ×5 (06:50→23:01)
[2018-09-27 06:56] LABS: Bedside Glucose 149 mg/dL (70-110)
[2018-09-27] MEDS: Acetaminophen 325 MG Tablet 650 MG PO (08:14)
[2018-09-27] MEDS: predniSONE 20 MG Tablet 40 MG PO (08:14)
[2018-09-27] MEDS: Docusate Sodium 100 MG Capsule 200 MG PO (08:14)
--- NOTE | 2018-09-27 09:48 | RAD_ITS ---
STUDY: X-RAY CHEST REASON FOR EXAM: Female, 63 years old. Shortness of breath and wheezing TECHNIQUE: PA and lateral views of the chest. COMPARISON: 09/25/2018 FINDINGS: There are interstitial fibrotic changes of the lungs. There is no demonstrated pleural abnormality. Normal size heart. Normal mediastinum and radha. Normal visualized pulmonary arteries. Normal visualized aortic arch and descending thoracic aorta. Normal visualized thoracic spine. Normal visualized ribs, clavicles, and shoulders. There is no demonstrated abnormality of the visualized soft tissue structures of the upper abdomen. RAD/Chest PA and Lateral IMPRESSION: Degenerative changes, as described above. No demonstrated acute cardiopulmonary process. Electronically Signed: Narendra Turner MD at 10:27 EDT , Service support ,
--- NOTE | 2018-09-27 10:03 | NURSING ---
off unit via bed for xray. o2@ 1l via nc
[2018-09-27] MEDS: Amox/Clavulanate 875 MG Tablet PO ×2 (11:35→16:50)
[2018-09-27] MEDS: Montelukast 10 MG Tablet PO (11:36)
[2018-09-27] MEDS: amLODIPine 10 MG Tablet PO (11:36)
[2018-09-27] MEDS: guaiFENesin 1,200 MG Tablet 1200 MG PO ×2 (11:36→22:47)
[2018-09-27] MEDS: Enoxaparin 40 MG/0.4 ML Syringe SC (11:36)
[2018-09-27] MEDS: hydroCHLOROthiazide 12.5mg 12.5 MG PO (11:36)
[2018-09-27 11:45] LABS: Bedside Glucose 148 mg/dL (70-110)
--- NOTE | 2018-09-27 14:58 | PCM.PN.HOSP ---
Patient Problems: Active and Suspected Problems Left acute otitis media (Acute) Asthma with COPD with exacerbation (Acute) Subjective: Patient gets easily short of breath on mild exertion. She was short of breath on walking pulse oximetry today. Pulse ox was 86% on ambulation on room air, 92% on 1 L on ambulation. Currently on 2 to 3 L overnight. She is still wheezing. Vitals/I&O's: Vital Signs Temp Pulse Resp BP Pulse Ox 98.0 F 81 16 133/76 H 94 09/27/18 11:00 09/27/18 11:27 09/27/18 11:27 09/27/18 11:00 09/27/18 11:00 Oxygen Flow Rate (L/min) [ 1 AMBULATION with Oxygen] Oxygen Flow Rate (L/min) [ 0 AMBULATING on Room Air] Oxygen Flow Rate (L/min) [At 0 REST on Room Air] Oxygen Flow Rate (L/min) 2 Oxygen Delivery Method Nasal Cannula Weight: 225 lb 4.999 oz Body Mass Index (BMI) 41.2 Intake and Output for Last 24 Hours 09/25/18 09/26/18 09/27/18 23:59 23:59 23:59 Intake Total 807 / 807 2506 / 2506 574 / 574 Balance 807 / 807 2506 / 2506 574 / 574 General: Alert, Oriented x3, Cooperative HEENT: Atraumatic, PERRLA, EOMI, Normocephalic Oral: Dry Mucosa Neck: Supple, No JVD, Negative Carotid Bruits Lungs: Diminished - Air entry is diminished., Short of Breath, Wheezes Cardiovascular: Regular rate, Regular Rhythm, Normal S1, Normal S2, No murmurs Abdomen: Bowel Sounds Present, Soft, Non Tender, Non-Distended Extremities: No edema, Capillary Refill Less than 3 Seconds Skin: No rashes, No breakdown Musculoskeletal: No Tenderness to Palpation of Joints or Extremities, Arthritic Changes Neurological: Cranial nerves II-XII grossly intact, Deep Tendon Reflexes 2+/4 and Symmetrical, Neuro grossly intact Psych/Mental Status: Normal Affect, Appropriate Microbiology Past 72 Hours 09/25/18 15:15 Sputum, Expectorated/Coughed Gram Stain - Final 09/25/18 15:15 Sputum, Expectorated/Coughed Respiratory Culture - Final Haemophilus influenzae 09/25/18 15:30 Mucosa - Throat Group A Streptococcus Rapid Screen - Final 09/25/18 09:47 Mucosa - Nasopharyngeal Respiratory Panel (PCR) - Final Rhinovirus 09/25/18 15:40 Urine, Random Legionella Antigen - Final 09/25/18 15:40 Urine, Random Streptococcus pneumoniae Antigen (M - Final 09/25/18 09:47 Mucosa - Nose Influenza Types A,B Direct FA (MICHELLE) - Final Laboratory Results 09/26/18 17:12: POC Glucose 190 H 09/26/18 22:06: POC Glucose 165 H 09/27/18 05:22: Sodium 142, Potassium 4.5, Chloride 107, Carbon Dioxide 31.0, Anion Gap 4 L, BUN 13, Creatinine 0.63, Estim Creat Clear Calc 73.23, Est GFR (MDRD) Af Amer 123, Est GFR (MDRD) Non-Af 102, BUN/Creatinine Ratio 20.7 H, Glucose 162 H, Calcium 8.2 L 09/27/18 06:41: POC Glucose 149 H 09/27/18 11:08: POC Glucose 148 H Current Medications Acetaminophen (Tylenol) 650 mg PO Q6H PRN PRN PRN Reason: Mild Pain (scale 0-3)/T>100.7 Last Admin: 09/27/18 08:14 Dose: 650 mg Albuterol Sulfate (Ventolin Aerosols) 2.5 mg INHALATION Q2H PRN PRN PRN Reason: SHORTNESS OF BREATH Albuterol/Ipratropium (Duoneb) 3 ml INHALATION Q4HWA.RT [facility] Last Admin: 09/27/18 11:27 Dose: 3 ml Amlodipine Besylate (Norvasc) 10 mg PO DAILY [facility] Last Admin: 09/27/18 11:36 Dose: 10 mg Amoxicillin/Clavulanate Potassium (Augmentin Tablet) 875 mg PO BIDCM [facility] [place] Last Admin: 09/27/18 11:35 Dose: 875 mg Atorvastatin Calcium (Lipitor) 10 mg PO QHS [facility] [place] Last Admin: 09/26/18 22:12 Dose: 10 mg Bisacodyl (Dulcolax) 10 mg RECTAL DAILY PRN PRN PRN Reason: Constipation Dextrose (D50w Syringe) 0 gm IV X1 PRN; Protocol PRN Reason: Hypoglycemia Docusate Sodium (Colace) 200 mg PO BID PRN PRN PRN Reason: Constipation Last Admin: 09/27/18 08:14 Dose: 200 mg Enoxaparin Sodium (Lovenox) 40 mg SC DAILY [facility] [place] Last Admin: 09/27/18 11:36 Dose: 40 mg Gabapentin (Neurontin) 300 mg PO 4X/DAY PRN PRN PRN Reason: PAIN Last Admin: 09/25/18 21:36 Dose: 300 mg Glucagon () 1 mg IM .X1 PRN PRN Reason: Hypoglycemia Guaifenesin (Mucinex) 1,200 mg PO BID [facility] [place] Last Admin: 09/27/18 11:36 Dose: 1,200 mg Hydrochlorothiazide () 12.5 mg PO DAILY [facility] [place] Last Admin: 09/27/18 11:36 Dose: 12.5 mg Insulin Glargine (Lantus (Bk)) 10 units SC QHS [facility] [place] Insulin Human Lispro (Humalog Kwikpen ([facility])) 0 unit SQ ACHS [facility]; Protocol Last Admin: 09/27/18 11:13 Dose: Not Given Methylprednisolone (Solu-Medrol) 40 mg IV Q6 [facility] Last Admin: 09/27/18 11:37 Dose: 40 mg Montelukast Sodium (Singulair) 10 mg PO DAILY [facility] [place] Last Admin: 09/27/18 11:36 Dose: 10 mg Ondansetron HCl (Zofran) 4 mg IV Q8H PRN PRN PRN Reason: Nausea Oxycodone HCl (Oxyir) 5 mg PO Q4H PRN PRN PRN Reason: Moderate Pain (pain scale 4-5) Last Admin: 09/26/18 20:44 Dose: 5 mg Sodium Chloride () 5 - 15 ml IV UD PRN PRN Reason: SALINE FLUSH Last Admin: 09/26/18 22:12 Dose: 10 ml Medical Necessity - Tobacco Use Smoking Status: Former smoker Tobacco Use: Cigarettes Assessment/Plan All Active Problems Left acute otitis media (Acute) Asthma with COPD with exacerbation (Acute) The patient is a 63 year old F with history of asthma came to ED with shortness of breath since day before admission. She also has cough for about 4 months and had antibiotic more than 3 months ago by PCP. She also had fever chills, productive cough with greenish-yellow sputum and interscapular pleuritic chest pain on coughing and deep inspiration. She has history of sinusitis and had sinus procedure done about 4 years ago. Complains of sore throat postnasal drip and ear pain. [] In ED, her temperature 100.9 ?F, tachycardia, 115/min, tachypnea respiratory rate 21 to 23/min and pulse ox 91% on 4 L of oxygen. Chest x-ray does not show acute infiltrate. She also had previous chest x-ray negative about 2 3 months ago by PCP. 1. Asthma/COPD asthmatic exacerbation most probably secondary to rhinovirus viral bronchitis/superimposed haemophilus influenzae bronchitis or interstitial pneumonitis: [facility] On bronchodilator, IV Solu-Medrol, incentive spirometry and chest physiotherapy. Respiratory panel is positive for rhinovirus. His sputum culture grows haemophilus influenzae. Urinary antigens are negative. Continue Singulair Patient does not have leukocytosis. Patient is still short of breath even on mild exertion on ambulation, wheezing and requires 2 to 3 L of oxygen. Solu-Medrol dose increased to 40 mg every 6 hourly. Repeat chest x-ray demonstrated no acute cardiopulmonary process but interstitial fibrotic changes of the lungs. No demonstrated pleural abnormality. No significant change from previous chest x-ray of 09/25. 2. Left acute otitis media with bilateral middle ear effusion: Started on IV Unasyn. Patient has URI symptoms. Anti-inflammatory pain medication. I talked to ENT doctor, Dr. Richardson on 09/[address] Yahir Palma. He agree with her current IV antibiotic Unasyn for left acute otitis media. He advised follow-up in the office with Dr. Yahir Palma after discharge in 1 to 2 weeks. 3. Hyponatremia: On IV fluid normal saline. 4. Hypertension and dyslipidemia and peripheral neuropathy: Patient is on Norvasc, HCTZ and on simvastatin. Continue Neurontin. Obesity grade 3 and chronic degenerative joint disease: Patient is on Mobic. DVT prophylaxis: On Lovenox 40 mg subcu daily As the patient is still symptomatic with shortness of breath and, wheezy and requires 3 L of oxygen patient needs 1 more days for treatment. Patient is being converted from observation to inpatient. Clinical Impression(s) from Imaging Studies Chest X-Ray 09/25/18 10:10 IMPRESSION: No acute cardiopulmonary findings COPD/hypoaeration with bibasilar atelectasis/scarring Active Medications Acetaminophen (Tylenol) 650 mg PO Q6H PRN PRN PRN Reason: Mild Pain (scale 0-3)/T>100.7 Last Admin: 09/27/18 08:14 Dose: 650 mg Albuterol Sulfate (Ventolin Aerosols) 2.5 mg INHALATION Q2H PRN PRN PRN Reason: SHORTNESS OF BREATH Albuterol/Ipratropium (Duoneb) 3 ml INHALATION Q4HWA.RT [facility] Last Admin: 09/27/18 11:27 Dose: 3 ml Amlodipine Besylate (Norvasc) 10 mg PO DAILY [facility] Last Admin: 09/27/18 11:36 Dose: 10 mg Amoxicillin/Clavulanate Potassium (Augmentin Tablet) 875 mg PO BIDCM [facility] [place] Last Admin: 09/27/18 11:35 Dose: 875 mg Atorvastatin Calcium (Lipitor) 10 mg PO QHS [facility] [place] Last Admin: 09/26/18 22:12 Dose: 10 mg Bisacodyl (Dulcolax) 10 mg RECTAL DAILY PRN PRN PRN Reason: Constipation Dextrose (D50w Syringe) 0 gm IV X1 PRN; Protocol PRN Reason: Hypoglycemia Docusate Sodium (Colace) 200 mg PO BID PRN PRN PRN Reason: Constipation Last Admin: 09/27/18 08:14 Dose: 200 mg Enoxaparin Sodium (Lovenox) 40 mg SC DAILY [facility] [place] Last Admin: 09/27/18 11:36 Dose: 40 mg Gabapentin (Neurontin) 300 mg PO 4X/DAY PRN PRN PRN Reason: PAIN Last Admin: 09/25/18 21:36 Dose: 300 mg Glucagon () 1 mg IM .X1 PRN PRN Reason: Hypoglycemia Guaifenesin (Mucinex) 1,200 mg PO BID [facility] [place] Last Admin: 09/27/18 11:36 Dose: 1,200 mg Hydrochlorothiazide () 12.5 mg PO DAILY [facility] [place] Last Admin: 09/27/18 11:36 Dose: 12.5 mg Insulin Glargine (Lantus (Bkc)) 10 units SC QHS [facility] [place] Insulin Human Lispro (Humalog Kwikpen ([facility])) 0 unit SQ ACHS [facility]; Protocol Last Admin: 09/27/18 11:13 Dose: Not Given Methylprednisolone (Solu-Medrol) 40 mg IV Q6 [facility] Last Admin: 09/27/18 11:37 Dose: 40 mg Montelukast Sodium (Singulair) 10 mg PO DAILY [facility] Last Admin: 09/27/18 11:36 Dose: 10 mg Ondansetron HCl (Zofran) 4 mg IV Q8H PRN PRN PRN Reason: Nausea Oxycodone HCl (Oxyir) 5 mg PO Q4H PRN PRN PRN Reason: Moderate Pain (pain scale 4-5) Last Admin: 09/26/18 20:44 Dose: 5 mg Sodium Chloride () 5 - 15 ml IV UD PRN PRN Reason: SALINE FLUSH Last Admin: 09/26/18 22:12 Dose: 10 ml Microbiology Past 72 Hours 09/25/18 15:15 Sputum, Expectorated/Coughed Gram Stain - Final 09/25/18 15:15 Sputum, Expectorated/Coughed Respiratory Culture - Final Haemophilus influenzae 09/25/18 15:30 Mucosa - Throat Group A Streptococcus Rapid Screen - Final 09/25/18 09:47 Mucosa - Nasopharyngeal Respiratory Panel (PCR) - Final Rhinovirus 09/25/18 15:40 Urine, Random Legionella Antigen - Final 09/25/18 15:40 Urine, Random Streptococcus pneumoniae Antigen (M - Final 09/25/18 09:47 Mucosa - Nose Influenza Types A,B Direct FA (MICHELLE) - Final Laboratory Results 09/26/18 17:12: POC Glucose 190 H 09/26/18 22:06: POC Glucose 165 H 09/27/18 05:22: Sodium 142, Potassium 4.5, Chloride 107, Carbon Dioxide 31.0, Anion Gap 4 L, BUN 13, Creatinine 0.63, Estim Creat Clear Calc 73.23, Est GFR (MDRD) Af Amer 123, Est GFR (MDRD) Non-Af 102, BUN/Creatinine Ratio 20.7 H, Glucose 162 H, Calcium 8.2 L 09/27/18 06:41: POC Glucose 149 H 09/27/18 11:08: POC Glucose 148 H Code Visit Inpatient E&M: 62298 Subs Hosp L2
--- NOTE | 2018-09-27 15:08 | PN_ITS ---
Patient Problems: Active and Suspected Problems Left acute otitis media (Acute) Asthma with COPD with exacerbation (Acute) Subjective: Patient gets easily short of breath on mild exertion. She was short of breath on walking pulse oximetry today. Pulse ox was 86% on ambulation on room air, 92% on 1 L on ambulation. Currently on 2 to 3 L overnight. She is still wheezing. Vitals/I&O's: Vital Signs Temp Pulse Resp BP Pulse Ox 98.0 F 81 16 133/76 H 94 09/27/18 11:00 09/27/18 11:27 09/27/18 11:27 09/27/18 11:00 09/27/18 11:00 Oxygen Flow Rate (L/min) [ 1 AMBULATION with Oxygen] Oxygen Flow Rate (L/min) [ 0 AMBULATING on Room Air] Oxygen Flow Rate (L/min) [At 0 REST on Room Air] Oxygen Flow Rate (L/min) 2 Oxygen Delivery Method Nasal Cannula Weight: 225 lb 4.999 oz Body Mass Index (BMI) 41.2 Intake and Output for Last 24 Hours 09/25/18 09/26/18 09/27/18 23:59 23:59 23:59 Intake Total 807 / 807 2506 / 2506 574 / 574 Balance 807 / 807 2506 / 2506 574 / 574 General: Alert, Oriented x3, Cooperative HEENT: Atraumatic, PERRLA, EOMI, Normocephalic Oral: Dry Mucosa Neck: Supple, No JVD, Negative Carotid Bruits Lungs: Diminished - Air entry is diminished., Short of Breath, Wheezes Cardiovascular: Regular rate, Regular Rhythm, Normal S1, Normal S2, No murmurs Abdomen: Bowel Sounds Present, Soft, Non Tender, Non-Distended Extremities: No edema, Capillary Refill Less than 3 Seconds Skin: No rashes, No breakdown Musculoskeletal: No Tenderness to Palpation of Joints or Extremities, Arthritic Changes Neurological: Cranial nerves II-XII grossly intact, Deep Tendon Reflexes 2+/4 and Symmetrical, Neuro grossly intact Psych/Mental Status: Normal Affect, Appropriate Microbiology Past 72 Hours 09/25/18 15:15 Sputum, Expectorated/Coughed Gram Stain - Final 09/25/18 15:15 Sputum, Expectorated/Coughed Respiratory Culture - Final Haemophilus influenzae 09/25/18 15:30 Mucosa - Throat Group A Streptococcus Rapid Screen - Final 09/25/18 09:47 Mucosa - Nasopharyngeal Respiratory Panel (PCR) - Final Rhinovirus 09/25/18 15:40 Urine, Random Legionella Antigen - Final 09/25/18 15:40 Urine, Random Streptococcus pneumoniae Antigen (M - Final 09/25/18 09:47 Mucosa - Nose Influenza Types A,B Direct FA (MICHELLE) - Final Laboratory Results 09/26/18 17:12: POC Glucose 190 H 09/26/18 22:06: POC Glucose 165 H 09/27/18 05:22: Sodium 142, Potassium 4.5, Chloride 107, Carbon Dioxide 31.0, Anion Gap 4 L, BUN 13, Creatinine 0.63, Estim Creat Clear Calc 73.23, Est GFR (MDRD) Af Amer 123, Est GFR (MDRD) Non-Af 102, BUN/Creatinine Ratio 20.7 H, Glucose 162 H, Calcium 8.2 L 09/27/18 06:41: POC Glucose 149 H 09/27/18 11:08: POC Glucose 148 H Current Medications Acetaminophen (Tylenol) 650 mg PO Q6H PRN PRN PRN Reason: Mild Pain (scale 0-3)/T>100.7 Last Admin: 09/27/18 08:14 Dose: 650 mg Albuterol Sulfate (Ventolin Aerosols) 2.5 mg INHALATION Q2H PRN PRN PRN Reason: SHORTNESS OF BREATH Albuterol/Ipratropium (Duoneb) 3 ml INHALATION Q4HWA.RT [facility] Last Admin: 09/27/18 11:27 Dose: 3 ml Amlodipine Besylate (Norvasc) 10 mg PO DAILY [facility] Last Admin: 09/27/18 11:36 Dose: 10 mg Amoxicillin/Clavulanate Potassium (Augmentin Tablet) 875 mg PO BIDCM [facility] Last Admin: 09/27/18 11:35 Dose: 875 mg Atorvastatin Calcium (Lipitor) 10 mg PO QHS [facility] Last Admin: 09/26/18 22:12 Dose: 10 mg Bisacodyl (Dulcolax) 10 mg RECTAL DAILY PRN PRN PRN Reason: Constipation Dextrose (D50w Syringe) 0 gm IV X1 PRN; Protocol PRN Reason: Hypoglycemia Docusate Sodium (Colace) 200 mg PO BID PRN PRN PRN Reason: Constipation Last Admin: 09/27/18 08:14 Dose: 200 mg Enoxaparin Sodium (Lovenox) 40 mg SC DAILY [facility] Last Admin: 09/27/18 11:36 Dose: 40 mg Gabapentin (Neurontin) 300 mg PO 4X/DAY PRN PRN PRN Reason: PAIN Last Admin: 09/25/18 21:36 Dose: 300 mg Glucagon () 1 mg IM .X1 PRN PRN Reason: Hypoglycemia Guaifenesin (Mucinex) 1,200 mg PO BID [facility] Last Admin: 09/27/18 11:36 Dose: 1,200 mg Hydrochlorothiazide () 12.5 mg PO DAILY [facility] Last Admin: 09/27/18 11:36 Dose: 12.5 mg Insulin Glargine (Lantus (Bk)) 10 units SC QHS [facility] Insulin Human Lispro (Humalog Kwikpen ([facility])) 0 unit SQ ACHS [facility]; Protocol Last Admin: 09/27/18 11:13 Dose: Not Given Methylprednisolone (Solu-Medrol) 40 mg IV Q6 [facility] Last Admin: 09/27/18 11:37 Dose: 40 mg Montelukast Sodium (Singulair) 10 mg PO DAILY [facility] Last Admin: 09/27/18 11:36 Dose: 10 mg Ondansetron HCl (Zofran) 4 mg IV Q8H PRN PRN PRN Reason: Nausea Oxycodone HCl (Oxyir) 5 mg PO Q4H PRN PRN PRN Reason: Moderate Pain (pain scale 4-5) Last Admin: 09/26/18 20:44 Dose: 5 mg Sodium Chloride () 5 - 15 ml IV UD PRN PRN Reason: SALINE FLUSH Last Admin: 09/26/18 22:12 Dose: 10 ml Medical Necessity - Tobacco Use Smoking Status: Former smoker Tobacco Use: Cigarettes Assessment/Plan All Active Problems Left acute otitis media (Acute) Asthma with COPD with exacerbation (Acute) The patient is a 63 year old F with history of asthma came to ED with shortness of breath since day before admission. She also has cough for about 4 months and had antibiotic more than 3 months ago by PCP. She also had fever chills, productive cough with greenish-yellow sputum and interscapular pleuritic chest pain on coughing and deep inspiration. She has history of sinusitis and had sinus procedure done about 4 years ago. Complains of sore throat postnasal drip and ear pain. [] In ED, her temperature 100.9 ?F, tachycardia, 115/min, tachypnea respiratory rate 21 to 23/min and pulse ox 91% on 4 L of oxygen. Chest x-ray does not show acute infiltrate. She also had previous chest x-ray negative about 2 3 months ago by PCP. 1. Asthma/COPD asthmatic exacerbation most probably secondary to rhinovirus viral bronchitis/superimposed haemophilus influenzae bronchitis or interstitial pneumonitis: [facility] On bronchodilator, IV Solu-Medrol, incentive spirometry and chest physiotherapy. Respiratory panel is positive for rhinovirus. His sputum culture grows haemophilus influenzae. Urinary antigens are negative. Continue Singulair Patient does not have leukocytosis. Patient is still short of breath even on mild exertion on ambulation, wheezing and requires 2 to 3 L of oxygen. Solu-Medrol dose increased to 40 mg every 6 hourly. Repeat chest x-ray demonstrated no acute cardiopulmonary process but interstitial fibrotic changes of the lungs. No demonstrated pleural abnormality. No significant change from previous chest x- ray of 09/25. 2. Left acute otitis media with bilateral middle ear effusion: Started on IV Unasyn. Patient has URI symptoms. Anti-inflammatory pain medication. I talked to ENT doctor, Dr. Richardson on 09/[address] Yahir Palma. He agree with her current IV antibiotic Unasyn for left acute otitis media. He advised follow-up in the office with Dr. Yahir Palma after discharge in 1 to 2 weeks. 3. Hyponatremia: On IV fluid normal saline. 4. Hypertension and dyslipidemia and peripheral neuropathy: Patient is on Norvasc, HCTZ and on simvastatin. Continue Neurontin. Obesity grade 3 and chronic degenerative joint disease: Patient is on Mobic. DVT prophylaxis: On Lovenox 40 mg subcu daily As the patient is still symptomatic with shortness of breath and, wheezy and requires 3 L of oxygen patient needs 1 more days for treatment. Patient is being converted from observation to inpatient. Clinical Impression(s) from Imaging Studies Chest X-Ray 09/25/18 10:10 IMPRESSION: No acute cardiopulmonary findings COPD/hypoaeration with bibasilar atelectasis/scarring Active Medications Acetaminophen (Tylenol) 650 mg PO Q6H PRN PRN PRN Reason: Mild Pain (scale 0-3)/T>100.7 Last Admin: 09/27/18 08:14 Dose: 650 mg Albuterol Sulfate (Ventolin Aerosols) 2.5 mg INHALATION Q2H PRN PRN PRN Reason: SHORTNESS OF BREATH Albuterol/Ipratropium (Duoneb) 3 ml INHALATION Q4HWA.RT [facility] Last Admin: 09/27/18 11:27 Dose: 3 ml Amlodipine Besylate (Norvasc) 10 mg PO DAILY [facility] Last Admin: 09/27/18 11:36 Dose: 10 mg Amoxicillin/Clavulanate Potassium (Augmentin Tablet) 875 mg PO BIDCM [facility] Last Admin: 09/27/18 11:35 Dose: 875 mg Atorvastatin Calcium (Lipitor) 10 mg PO QHS [facility] Last Admin: 09/26/18 22:12 Dose: 10 mg Bisacodyl (Dulcolax) 10 mg RECTAL DAILY PRN PRN PRN Reason: Constipation Dextrose (D50w Syringe) 0 gm IV X1 PRN; Protocol PRN Reason: Hypoglycemia Docusate Sodium (Colace) 200 mg PO BID PRN PRN PRN Reason: Constipation Last Admin: 09/27/18 08:14 Dose: 200 mg Enoxaparin Sodium (Lovenox) 40 mg SC DAILY [facility] Last Admin: 09/27/18 11:36 Dose: 40 mg Gabapentin (Neurontin) 300 mg PO 4X/DAY PRN PRN PRN Reason: PAIN Last Admin: 09/25/18 21:36 Dose: 300 mg Glucagon () 1 mg IM .X1 PRN PRN Reason: Hypoglycemia Guaifenesin (Mucinex) 1,200 mg PO BID [facility] Last Admin: 09/27/18 11:36 Dose: 1,200 mg Hydrochlorothiazide () 12.5 mg PO DAILY [facility] Last Admin: 09/27/18 11:36 Dose: 12.5 mg Insulin Glargine (Lantus (Bkc)) 10 units SC QHS [facility] Insulin Human Lispro (Humalog Kwikpen ([facility])) 0 unit SQ ACHS [facility]; Protocol Last Admin: 09/27/18 11:13 Dose: Not Given Methylprednisolone (Solu-Medrol) 40 mg IV Q6 [facility] Last Admin: 09/27/18 11:37 Dose: 40 mg Montelukast Sodium (Singulair) 10 mg PO DAILY [facility] Last Admin: 09/27/18 11:36 Dose: 10 mg Ondansetron HCl (Zofran) 4 mg IV Q8H PRN PRN PRN Reason: Nausea Oxycodone HCl (Oxyir) 5 mg PO Q4H PRN PRN PRN Reason: Moderate Pain (pain scale 4-5) Last Admin: 09/26/18 20:44 Dose: 5 mg Sodium Chloride () 5 - 15 ml IV UD PRN PRN Reason: SALINE FLUSH Last Admin: 09/26/18 22:12 Dose: 10 ml Microbiology Past 72 Hours 09/25/18 15:15 Sputum, Expectorated/Coughed Gram Stain - Final 09/25/18 15:15 Sputum, Expectorated/Coughed Respiratory Culture - Final Haemophilus influenzae 09/25/18 15:30 Mucosa - Throat Group A Streptococcus Rapid Screen - Final 09/25/18 09:47 Mucosa - Nasopharyngeal Respiratory Panel (PCR) - Final Rhinovirus 09/25/18 15:40 Urine, Random Legionella Antigen - Final 09/25/18 15:40 Urine, Random Streptococcus pneumoniae Antigen (M - Final 09/25/18 09:47 Mucosa - Nose Influenza Types A,B Direct FA (MICHELLE) - Final Laboratory Results 09/26/18 17:12: POC Glucose 190 H 09/26/18 22:06: POC Glucose 165 H 09/27/18 05:22: Sodium 142, Potassium 4.5, Chloride 107, Carbon Dioxide 31.0, Anion Gap 4 L, BUN 13, Creatinine 0.63, Estim Creat Clear Calc 73.23, Est GFR (MDRD) Af Amer 123, Est GFR (MDRD) Non-Af 102, BUN/Creatinine Ratio 20.7 H, Glucose 162 H, Calcium 8.2 L 09/27/18 06:41: POC Glucose 149 H 09/27/18 11:08: POC Glucose 148 H Code Visit Inpatient E&M: 75585 Subs Hosp L2
[2018-09-27] MEDS: 0.9% NaCl Peripheral Flush Adult/Peds IV ×2 (16:50→23:04)
[2018-09-27] MEDS: Insulin Lispro 100 UNIT/ML INSULN.PEN SQ ×2 (16:50→22:56)
[2018-09-27 17:00] LABS: Bedside Glucose 190 mg/dL (70-110)
[2018-09-27] MEDS: Atorvastatin Calcium 10 MG Tablet PO (22:47)
[2018-09-27 22:51] LABS: Bedside Glucose 154 mg/dL (70-110)
[2018-09-27] MEDS: oxyCODONE 5 MG Tablet PO (23:11)
[2018-09-28 02:23] VITALS: BP 137/62; PULSE 75; RESP 18; TEMP 36.8; O2SAT 94
[2018-09-28] MEDS: 0.9% NaCl Peripheral Flush Adult/Peds IV ×2 (06:31→11:50)
[2018-09-28] MEDS: Ipratropium/Albuterol Sulfate 3 ML AMPUL.NEB INHALATION ×2 (06:42→10:51)
[2018-09-28 06:45] LABS: Bedside Glucose 147 mg/dL (70-110)
[2018-09-28 06:47] VITALS: PULSE 85; RESP 20; O2SAT 93
[2018-09-28 07:59] VITALS: BP 139/73; PULSE 72; RESP 18; TEMP 36.6; O2SAT 96
[2018-09-28] MEDS: Enoxaparin 40 MG/0.4 ML Syringe SC (08:04)
[2018-09-28] MEDS: hydroCHLOROthiazide 12.5mg 12.5 MG PO (08:04)
[2018-09-28] MEDS: Amox/Clavulanate 875 MG Tablet PO (08:04)
[2018-09-28] MEDS: Meloxicam 15 MG Tablet PO (08:05)
[2018-09-28] MEDS: amLODIPine 10 MG Tablet PO (08:05)
[2018-09-28] MEDS: Montelukast 10 MG Tablet PO (08:05)
[2018-09-28] MEDS: guaiFENesin 1,200 MG Tablet 1200 MG PO (08:05)
[2018-09-28] MEDS: oxyCODONE 5 MG Tablet PO (08:08)
[2018-09-28] MEDS: Gabapentin 300 MG Capsule PO (08:09)
--- NOTE | 2018-09-28 09:18 | DS.PCM_ITS ---
Discharge Date and Diagnosis - Problem List Patient Problems: Active and Suspected Problems Left acute otitis media (Acute) Asthma with COPD with exacerbation (Acute) Date of Admission: 09/25/18 Date of Discharge: 09/28/18 - Primary Discharge Diagnosis Active and Suspected Problems Left acute otitis media (Acute) Asthma with COPD with exacerbation (Acute) - Secondary Discharge Diagnosis Chronic Problems COPD exacerbation (Chronic) Hypertension (Chronic) dyslipidemia (Chronic) Degenerative joint disease (Chronic) Hospital Course and Treatment Summary of Care Provided: [] The patient is a 63 year old F with history of asthma came to ED with shortness of breath since day before admission. She also has cough for about 4 months and had antibiotic more than 3 months ago by PCP. She also had fever chills, productive cough with greenish-yellow sputum and interscapular pleuritic chest pain on coughing and deep inspiration. She has history of sinusitis and had sinus procedure done about 4 years ago. Complains of sore throat postnasal drip and ear pain. [] In ED, her temperature 100.9 ?F, tachycardia, 115/min, tachypnea respiratory rate 21 to 23/min and pulse ox 91% on 4 L of oxygen. Chest x-ray does not show acute infiltrate. She also had previous chest x-ray negative about 2 3 months ago by PCP. 1. Acute hypoxic respiratory failure secondary to asthma/COPD asthmatic exacerbation most probably secondary to rhinovirus viral bronchitis/superimposed haemophilus influenzae bronchitis or interstitial pneumonitis; present on admission: [facility] On bronchodilator, IV Solu-Medrol, incentive spirometry and chest physiotherapy. Respiratory panel is positive for rhinovirus. His sputum culture grows haemophilus influenzae. Urinary antigens are negative. Continue Singulair. Solu-Medrol dose was increased to 40 mg every 6 hourly. Repeat chest x-ray demonstrated no acute cardiopulmonary process but interstitial fibrotic changes of the lungs. No demonstrated pleural abnormality. No significant change from previous chest x- ray of 09/25. Patient breath sound is better and overall shortness of breath has improved. Patient was on 4 L of oxygen on admission which improved to 2 L/min The patient is being discharged on home oxygen. Patient requires home oxygen with portability and is ambulatory in home and community. 2. Left acute otitis media with bilateral middle ear effusion: Started on IV Unasyn. Patient has URI symptoms. Anti-inflammatory pain medication. I talked to ENT doctor, Dr. Richardson on 09/[address] Yahir aPlma. He agree with her current IV antibiotic Unasyn for left acute otitis media. He advised follow-up in the office with Dr. Yahir Palma after discharge in 1 to 2 weeks. Repeat otoscopic exam today shows improvement in otitis media and left acute otitis media. Prescription given to complete Augmentin for 4 more days. 3. Hyponatremia: Resolved. IV fluids discontinued 4. Hypertension and dyslipidemia and peripheral neuropathy: Patient is on Norvasc, HCTZ and on simvastatin. Continue Neurontin. Obesity grade 3 and chronic degenerative joint disease: Patient is on Mobic. DVT prophylaxis: On Lovenox 40 mg subcu daily Discharge medication reconciliation done. Discharge follow-up instructions completed. Discharge process discussed with the patient and all questions were answered to patient's satisfaction. Patient is being discharged on home oxygen. Pulse ox 86% on ambulation on room air, 94% on 2 L of oxygen on ambulation and 94% at rest on room air Total time spent, exact 35 minutes on discharge meds reconciliation, examination, review of imaging and blood test and discussion with the patient on follow-up instructions. Clinical Impression(s) from Imaging Studies Chest X-Ray 09/25/18 10:10 IMPRESSION: No acute cardiopulmonary findings COPD/hypoaeration with bibasilar atelectasis/scarring Patient Problems: Active and Suspected Problems Left acute otitis media (Acute) Asthma with COPD with exacerbation (Acute) Subjective: Shortness of breath is much improved. Patient wheezing also improved. Patient still requires on ambulation. Pulse ox 86% on room air on ambulation - Physical Exam General: Alert, Oriented x3, Cooperative HEENT: Atraumatic, PERRLA, EOMI, Normocephalic, - - Left ear yellowish appe arance is much improved. Light reflex is more bright. No discharge Right ear no discharge. Neck: Supple, No JVD, Negative Carotid Bruits Lungs: Diminished, Wheezes Cardiovascular: Regular rate, Regular Rhythm, Normal S1, Normal S2, No murmurs Abdomen: Bowel Sounds Present, Soft, Non Tender Extremities: No edema, Capillary Refill Less than 3 Seconds Skin: No rashes, No breakdown Musculoskeletal: No Tenderness to Palpation of Joints or Extremities Neurological: Cranial nerves II-XII grossly intact Psych/Mental Status: Normal Affect, Appropriate Vital Signs Temp Pulse Resp BP Pulse Ox 97.9 F 72 18 139/73 H 96 09/28/18 07:59 09/28/18 07:59 09/28/18 07:59 09/28/18 07:59 09/28/18 07:59 Oxygen Flow Rate (L/min) [ 1 AMBULATION with Oxygen] Oxygen Flow Rate (L/min) [ 0 AMBULATING on Room Air] Oxygen Flow Rate (L/min) [At 0 REST on Room Air] Oxygen Flow Rate (L/min) 2 Oxygen Delivery Method Nasal Cannula Weight: 225 lb 4.999 oz Body Mass Index (BMI) 41.2 Intake and Output for Last 24 Hours 09/26/18 09/27/18 09/28/18 23:59 23:59 23:59 Intake Total 2506 / 2506 1048 / 1048 0 / 0 Output Total 0 / 0 Balance 2506 / 2506 1048 / 1048 0 / 0 Microbiology Past 72 Hours 09/25/18 15:15 Gram Stain - Final Sputum, Expectorated/Coughed Respiratory Culture - Final Haemophilus influenzae 09/25/18 15:30 Group A Streptococcus Rapid Screen - Final Mucosa - Throat 09/25/18 09:47 Respiratory Panel (PCR) - Final Mucosa - Nasopharyngeal Rhinovirus 09/25/18 15:40 Legionella Antigen - Final Urine, Random 09/25/18 15:40 Streptococcus pneumoniae Antigen (M - Final Urine, Random 09/25/18 09:47 Influenza Types A,B Direct FA (MICHELLE) - Final Mucosa - Nose POC Glucose 09/28/18 09/27/18 09/27/18 06:26 22:46 16:44 POC Glucose 147 H 154 H 190 H 09/27/18 11:08 POC Glucose 148 H Discharge Activity: May Not Drive Call your doctor if you observe: Fever of 101 or Higher, Inability to have a bowel movement, Shortness of breath, Dizziness, Chest pain, Increased palpitations (irregular heartbeat) Home Medications: Medications to take at Discharge Amlodipine [Norvasc] 10 mg PO DAILY 09/25/18 Gabapentin [Neurontin] 300 mg PO TID PRN PRN 09/25/18 Hydrochlorothiazide 12.5 mg PO DAILY 09/25/18 Meloxicam [Mobic] 15 mg PO DAILY 09/25/18 Montelukast [Singulair] 10 mg PO QHS 09/25/18 Simvastatin [Zocor] 20 mg PO QHS 09/25/18 Albuterol IH (ProAir) [Proair Hfa] 2 puff INHALATION Q4H PRN PRN #1 inhaler 09/28/18 Amox/Clavulanate Tablet [Augmentin Tablet] 875 mg PO BIDCM #7 tablet 09/28/18 Guaifenesin [Mucinex] 1,200 mg PO BID #14 tablet 09/28/18 Prednisone 10 mg PO DAILY #30 tab 09/28/18 Following Prescrptions Were Given to Patient: Albuterol IH (ProAir) [Proair Hfa] 2 puff INHALATION Q4H PRN PRN #1 inhaler PRN Reason: Sob &/Or Wheezing Prednisone 10 mg PO DAILY #30 tab Amox/Clavulanate Tablet [Augmentin Tablet] 875 mg PO BIDCM #7 tablet Guaifenesin [Mucinex] 1,200 mg PO BID #14 tablet Primary Care Physician: Jevon Guzman III, MD [Primary Care Provider] - Please follow up with your Primary Care Physician in: in 1-2 weeks Please Follow Up With: Prasanna Neville DO When: F/u Pulm clinic in [address] Neville fr 4 wks. Need PFT Medical Necessity - Tobacco Use Smoking Status: Former smoker Tobacco Use: Cigarettes Meaningful Use Info Meaningful Use Diagnoses (Choose all that apply): None applicable Code Visit Inpatient E&M: 82362 Disch Hosp
--- NOTE | 2018-09-28 09:18 | DCINST_ITS ---
- Discharge Diagnoses Current Active Problems: Current Active and Chronic Problems COPD exacerbation (Chronic) Left acute otitis media (Acute) Asthma with COPD with exacerbation (Acute) Hypertension (Chronic) dyslipidemia (Chronic) Degenerative joint disease (Chronic) You will use the following diet at home:: Cardiac Your food should be the consistency of: Regular Discharge Activity: May Not Drive Call your doctor if you observe: Fever of 101 or Higher, Inability to have a bowel movement, Shortness of breath, Dizziness, Chest pain, Increased palpitations (irregular heartbeat) Allergies/Adverse Reactions: Allergies levofloxacin [From Levaquin] Allergy (Verified 09/25/18 09:12) Rash Sulfa (Sulfonamide Antibiotics) Allergy (Verified 09/25/18 14:15) Unknown had reaction as a child Medications to take at Discharge Amlodipine [Norvasc] 10 mg PO DAILY 09/25/18 Gabapentin [Neurontin] 300 mg PO TID PRN PRN 09/25/18 Hydrochlorothiazide 12.5 mg PO DAILY 09/25/18 Meloxicam [Mobic] 15 mg PO DAILY 09/25/18 Montelukast [Singulair] 10 mg PO QHS 09/25/18 Simvastatin [Zocor] 20 mg PO QHS 09/25/18 Albuterol IH (ProAir) [Proair Hfa] 2 puff INHALATION Q4H PRN PRN #1 inhaler 09/28/18 Amox/Clavulanate Tablet [Augmentin Tablet] 875 mg PO BIDCM #7 tablet 09/28/18 Guaifenesin [Mucinex] 1,200 mg PO BID #14 tablet 09/28/18 Prednisone 10 mg PO DAILY #30 tab 09/28/18 The following prescriptions were given: Albuterol IH (ProAir) [Proair Hfa] 2 puff INHALATION Q4H PRN PRN #1 inhaler PRN Reason: Sob &/Or Wheezing Prednisone 10 mg PO DAILY #30 tab Amox/Clavulanate Tablet [Augmentin Tablet] 875 mg PO BIDCM #7 tablet Guaifenesin [Mucinex] 1,200 mg PO BID #14 tablet Primary Care Physician: Jevon Guzman III, MD [Primary Care Provider] - Please follow up with your Primary Care Physician in: in 1-2 weeks Test Results: Test results from this visit will be discussed in further detail at your follow- up appointment, if applicable. Please Follow Up With: Prasanna Neville, DO When: F/u Pulm clinic in [address] Neville fr 4 wks. Need PFT
[2018-09-28 10:26] VITALS: O2SAT 86; O2SAT 94
--- NOTE | 2018-09-28 10:36 | CASEMGMT ---
HERIBERTO FORBES received updated from Luda LOUIS, that patient qualifies for home oxygen at discharge. HERIBERTO FORBES updated hospitalist and script received. HERIBERTO FORBES updated patient and would like [facility] for DME. Referral sent to [facility] for home oxygen and requested portable oxygen be delivered to patient's room prior to discharge.
[2018-09-28 10:51] VITALS: PULSE 81; RESP 16
[2018-09-28] MEDS: Insulin Lispro 100 UNIT/ML INSULN.PEN SQ (11:48)
[2018-09-28 12:01] LABS: Bedside Glucose 278 mg/dL (70-110)
--- NOTE | 2018-10-02 14:31 | CASEMGMT ---
RN LEIDY DC PHONE CALL DC DATE: 09/28/18 DC Disposition: Home LACE/STRATA: 09/28/18 Intro role of CM to patient via phone. Pt states she had f/u with PCP today, and has appt tomorrow with her lung doctor. No questions re: prescriptions or instructions. No care improvement suggestions given. Pt states her care was great. -RN LEIDY thanked her for utilizing [facility]. Ann VELASCON RN AC
== END 2018-09-28 13:58 | disposition home or self-care (01) | DRG 189 ==
LOC: ED 11:22 → MS3 13:51
PROVIDERS: Admitting Provider Internal Medicine; Emergency Provider Emergency Medicine; Family Provider Family Medicine; PCP Family Medicine; Referring Provider Internal Medicine; Visit Provider Internal Medicine
DX: J96.01 Acute respiratory failure with hypoxia (principal); E87.1 Hypo-osmolality and hyponatremia; Z68.41 Body mass index [BMI] 40.0-44.9, adult; J44.0 Chronic obstructive pulmonary disease with (acute) lower respiratory infection; J44.1 Chronic obstructive pulmonary disease with (acute) exacerbation; J20.6 Acute bronchitis due to rhinovirus; J84.89 Other specified interstitial pulmonary diseases; H65.192 Other acute nonsuppurative otitis media, left ear; E66.9 Obesity, unspecified; M19.90 Unspecified osteoarthritis, unspecified site; G62.9 Polyneuropathy, unspecified; E78.5 Hyperlipidemia, unspecified; I10 Essential (primary) hypertension; Z87.891 Personal history of nicotine dependence; B96.3 Hemophilus influenzae [H. influenzae] as the cause of diseases classified elsewhere
CPT/HCPCS: 36415; 71046; 80048; 82962; 83605; 84484; 85025; 87040; 87070; 87077; 87205; 87449; 87633; 87804; 87880; 93005; 94640; 94667; 94668; 99285; J7030; J7040; A4216; J0295

== ENCOUNTER → 2018-10-11 15:34 | Outpatient (CLI) | payer OTHER, SELFPAY ==
[2018-10-03 08:29] VITALS: BMI 41.3
== END ==
PROVIDERS: Family Provider Family Medicine; PCP Family Medicine; Referring Provider Otolaryngology; Visit Provider Otolaryngology
DX: J01.90 Acute sinusitis, unspecified (principal)
CPT/HCPCS: 87070; 87077; 87205

== ENCOUNTER → 2018-10-18 08:19 | Outpatient (CLI) | payer OTHER, SELFPAY ==
[2018-10-03 08:29] VITALS: BMI 41.3
[2018-10-18 08:49] VITALS: PULSE 102; PULSE 105; PULSE 106; PULSE 109; PULSE 69; PULSE 78; PULSE 95; O2SAT 93; O2SAT 94; O2SAT 95; O2SAT 96
--- NOTE | 2018-10-18 08:54 | CPS ---
She still has a loose NPC. On antibotics for sinus infection. She was also in the hospital in September for 3 days for a lung infection.
--- NOTE | 2018-10-18 10:50 | WT_ITS ---
PSN 6 Minute Walk Test - 6 Minute Walk Test 6 Minute Walk Test: 6 Minute Walk Test PSN:6-Minute Walk Test Start: 10/18/18 08:48 Freq: Status: Active Protocol: [id number] Document 10/18/18 08:49 FR (Rec: 10/18/18 08:56 FR [id number]) 6 Minute Walk Test Date Performed 10/18/18 Time Performed 08:30 Height 5 ft 2 in Weight: 99.79 kg Weight in Pounds 220.[address]: Josesito Isabel FIO2 (% Oxygen) 21 Assistive device used: None Pre-test Oxygen Delivery Method Room Air Pulse Ox (%) 95 Pulse Rate (60-100 beats/min) 69 Dyspnea Keshawn Scale (0-10) 1 Exertion Keshawn Scale (6-20) 7 1st minute Oxygen Delivery Method Room Air Pulse Ox (%) 94 Pulse Rate (60-100 beats/min) 95 2nd minute Oxygen Delivery Method Room Air Pulse Ox (%) 93 Pulse Rate (60-100 beats/min) 102 H 3rd minute Oxygen Delivery Method Room Air Pulse Ox (%) 95 Pulse Rate (60-100 beats/min) 105 H 4th minute Oxygen Delivery Method Room Air Pulse Ox (%) 94 Pulse Rate (60-100 beats/min) 105 H 5th minute Oxygen Delivery Method Room Air Pulse Ox (%) 95 Pulse Rate (60-100 beats/min) 106 H 6th minute Oxygen Delivery Method Room Air Pulse Ox (%) 95 Pulse Rate (60-100 beats/min) 109 H Dyspnea Keshawn Scale (0-10) 3 Exertion Keshawn Scale (6-20) 8 Post-test Oxygen Delivery Method Room Air Pulse Ox (%) 96 Pulse Rate (60-100 beats/min) 78 Full Laps Walked 19 Partial Lap, Number of Tiles Walked 44 Total Distance Walked (ft) 1165 10/18/18 08:54 Cardiopulmonary Services by Lisa Hernández She still has a loose NPC. On antibotics for sinus infection. She was also in the hospital in September for 3 days for a lung infection. Initialized on 10/18/18 08:54 - END OF NOTE - Interpretation Interpretation: The patient was able to ambulate 1165 feet over the course of 6 minutes on room air with no assistive devices or breaks. The patient did experience desaturation as low as 92% and tachycardia as high as 109 bpm. These findings are consistent with deconditioning. - Recommendations Recommendations: No supplemental oxygen is indicated at this time.
== END ==
PROVIDERS: Family Provider Family Medicine; PCP Family Medicine; Referring Provider Internal Medicine Critical Care Medicine; Visit Provider Internal Medicine Critical Care Medicine
DX: J45.909 Unspecified asthma, uncomplicated (principal)
CPT/HCPCS: 94618

== ENCOUNTER → 2018-10-25 08:56 | Outpatient (CLI) | payer OTHER, SELFPAY ==
[2018-10-03 08:29] VITALS: BMI 41.3
--- NOTE | 2018-10-26 11:20 | PFT ---
INTRODUCTION: The patient is a 63-year-old female that presents for pulmonary function studies secondary to a diagnosis of asthma. Respiratory therapy reports good patient effort. Bronchodilators were used during testing. INTERPRETATION: Forced expiration spirometry demonstrates no evidence of a large airways obstructive ventilatory defect. There was a partial, albeit nonsignificant response, to aerosolized bronchodilators. Spirograms are of good quality and plateau normally. Body plethysmography was performed and reveals lung volumes to be within normal limits. Diffusing capacity by single breath CO was within normal limits as well. IMPRESSION: Essentially normal pulmonary function studies, with partial nonsignificant response to aerosolized bronchodilators.
== END ==
PROVIDERS: Family Provider Family Medicine; PCP Family Medicine; Referring Provider Internal Medicine Critical Care Medicine; Visit Provider Internal Medicine Critical Care Medicine
DX: J45.909 Unspecified asthma, uncomplicated (principal)
CPT/HCPCS: 94060; 94726; 94729

== ENCOUNTER → 2019-05-22 08:55 | Outpatient (CLI) | payer OTHER, SELFPAY ==
[2019-05-16 06:40] VITALS: BMI 42.0
== END ==
PROVIDERS: Family Provider Family Medicine; PCP Family Medicine; Referring Provider Internal Medicine Critical Care Medicine; Visit Provider Internal Medicine Critical Care Medicine
DX: J45.909 Unspecified asthma, uncomplicated (principal)
CPT/HCPCS: 87070; 87077; 87205

== ENCOUNTER → 2019-07-31 13:19 | Outpatient (CLI) | payer OTHER, SELFPAY ==
[2019-05-16 06:40] VITALS: BMI 42.0
--- NOTE | 2019-07-31 13:31 | MRI_ITS ---
STUDY: MRI LEFT ANKLE WITHOUT CONTRAST REASON FOR EXAM: Female, 64 years old. Left ankle achilles tendonitis, heel spur, HEEL PAIN TECHNIQUE: Standardized fat and water weighted pulse sequences were obtained in all 3 orthogonal planes. COMPARISON: None. FINDINGS: There is edema of the medial and lateral aspects of the ankle with edema extending through cage appears fat triangle. There is severe Achilles tendinosis with diffuse tendon thickening, and with extensive intrasubstance myxoid degeneration (sagittal series 9, image 11 axial T1 series 3, image 15). There is a prominent enthesophyte at the teno-osseous insertion at the teno-osseous insertion. There is subcortical bone marrow reabsorption of the posterior calcaneus. There is no Jhonny''s deformity. There is no retrocalcaneal bursitis. There is an 8 mm plantar calcaneal spur, without reactive marrow stress phenomena. There is diffuse thickening of the central cord of plantar fascia consistent with chronic plantar fascial degeneration and scarring, without an acute plantar fasciitis. There is heel pad edema with edema extending along the plantar surface of the central cord of plantar aponeurosis. Normal intrinsic muscles of the rear foot. There is tenosynovitis of the posterior tibialis tendon sheath with an intrinsic normal tendon. Normal flexor digitorum longus tendon. There is tenosynovitis of the flexor hallucis longus tendon sheath, with pooling of fluid in the Knot of Beny. There is a high-grade partial split tear of the peroneus brevis tendon within the retromalleolar groove (axial T1 series 3, image 16). The peroneus brevis and longus tendons otherwise are normal. Normal tibialis anterior tendon. There is tenosynovitis of the extensor hallucis longus tendon at the level of the superior extensor retinaculum (sagittal STIR series 9, image 15; axial T2 series 4, image 15). There is synovitis of the extensor digitorum longus tendon sheath with a peritendinous ganglion extending into the sinus tarsi, inferior to the inferior extensor retinaculum (axial T2 series 4, image 18; sagittal STIR series 9, image 13). The peritendinous ganglion measures approximately 18 x 6 x 17 mm (AP x transverse x craniocaudal). Normal distal tibiofibular syndesmotic ligamentous complex. Normal lateral ligamentous complex. Normal subtalar ligaments and sinus tarsi. Normal deltoid ligamentous complexes. Normal plantar calcaneonavicular (spring) ligament. Normal tibiotalar articulation. Normal talar dome. There is a small volume joint effusion the posterior subtalar articulation. There is a small volume joint effusion the talonavicular articulation with lateral capsular prolapse. Normal calcaneocuboid articulation. Normal navicular-cuneiform articulations. MRI/Lower Ext Joint Only (Routine) IMPRESSION: 1. Severe Achilles tendinosis with extensive intrasubstance myxoid degeneration, but without a demonstrated tear. Enthesophyte at the teno-osseous insertion of Achilles tendon with enthesophyte pathic erosions of the posterior calcaneus. 2. Large plantar calcaneal spur, but without a reactive marrow stress phenomena. 3. Chronic plantar fascial degeneration with plantar fascial thickening and scarring but without an acute plantar fasciitis. 4. High-grade partial split tear of the posterior surface of the peroneus longus tendon within the retromalleolar groove. 5. Tenosynovitis of the posterior tibialis and flexor hallucis longus tendon sheath. 6. Tenosynovitis of the extensor hallucis longus tendon sheath at the level the superior extensor retinaculum. 7. Synovitis of the extensor digitorum longus tendon with a peritendinous ganglion, inferior to the inferior extensor retinaculum. 8. Small and joint effusion the posterior subtalar articulation. Electronically Signed: Jevon Manuel DO at 14:05 EST Tel , Service support ,
== END ==
PROVIDERS: PCP Family Medicine; Referring Provider Podiatrist; Visit Provider Podiatrist
DX: M76.62 Achilles tendinitis, left leg (principal); M77.32 Calcaneal spur, left foot
CPT/HCPCS: 73721

== ENCOUNTER → 2020-01-13 | Outpatient (CLI) | payer OTHER, SELFPAY ==
[2019-11-28 08:35] VITALS: BMI 42.7
== END | disposition home or self-care (01) ==
PROVIDERS: PCP Family Medicine; Referring Provider Otolaryngology; Visit Provider Otolaryngology
DX: J32.9 Chronic sinusitis, unspecified (principal)
CPT/HCPCS: 87070; 87077; 87186; 87205

== ENCOUNTER 2020-08-13 15:46 | Outpatient (RCR) | payer OTHER, SELFPAY ==
[2020-08-13] MEDS: COVID-19 VACC, MRNA(PFIZER)/PF 30 MCG/0.3 ML SYRINGE IM (17:42)
[2020-09-03] MEDS: COVID-19 VACC, MRNA(PFIZER)/PF 30 MCG/0.3 ML SYRINGE IM (17:24)
== END 2020-11-10 23:59 ==
LOC: IMMUN 15:46
PROVIDERS: PCP Family Medicine; Visit Provider Family Medicine
DX: Z23 Encounter for immunization (principal)
CPT/HCPCS: 0001A; 0002A; 91300

== ENCOUNTER → 2021-01-01 12:32 | Outpatient (CLI) | payer OTHER, SELFPAY ==
[2020-11-16 07:45] VITALS: BMI 41.3
--- NOTE | 2021-01-01 12:47 | VDLE_ITS ---
Reason For Study: BLE VENOUS INSUFFICIENCY RIGHT LEFT CFV is compressible, spontaneous, phasic, CFV is compressible, spontaneous, phasic, competent and demonstrates normal competent, and demonstrates normal augmentation. augmentation. FV is compressible, spontaneous, phasic, FV is compressible, spontaneous, phasic, competent and demonstrates normal competent and demonstrates normal augmentation. augmentation. POP V is compressible, spontaneous, phasic, POP V is compressible, spontaneous, phasic, competent and demonstrates normal competent and demonstrates normal augmentation. augmentation. T/P Trunk is compressible. T/P Trunk is compressible. PTV is compressible. PTV is compressible. RT PerV is compressible. LT PerV is compressible. SFJ is competent and measures 0.70 x 0.84 cm. SFJ is competent and measures 0.64 x 0.61 cm. GSV proximal thigh measures 0.49 x 0.45 cm. GSV proximal thigh measures 0.48 x 0.42 cm. GSV at knee measures 0.40 x 0.41 cm. GSV at knee measures 0.34 x 0.33 cm. GSV is competent throughout. GSV is competent throughout. SSV proximal calf is competent and measures SSV proximal calf is competent and measures 0.25 x 0.25 cm. 0.18 x 0.23 cm. Procedure This is a venous duplex using B-mode, color flow and spectral Doppler. Exam performed in department. The exam was diagnostic. The study was technically difficult. A preliminary report was called and/or faxed to Dr. Del Valle @ [phone] @ 1:35 pm. VL/Venous Duplex US - [place] Extrem Interpretation Summary Deep veins of the lower extremities are bilaterally patent and compressible seg mentally. There is no evidence of deep vein thrombosis on either side. Valvular competence appears in tact within the proximal deep venous systems bilaterally. The great saphenous veins appear bila terally patent and compressible segmentally. Sapheno-femoral junctions are bilaterally competent . Valvular competence appears to be intact segmentally within the great saphenous veins bilaterally. Small saphenous veins are patent and competent bilaterally. Ordering Physician: Sarbjit Del Valle Referring Physician: Karey Caceres Performed By: Tania Sharma, ZACHARY, RVT
== END ==
PROVIDERS: PCP Internal Medicine; Referring Provider Podiatrist; Visit Provider Podiatrist
DX: I87.2 Venous insufficiency (chronic) (peripheral) (principal)
CPT/HCPCS: 72132; 93970

== ENCOUNTER → 2021-04-16 15:32 | Outpatient (CLI) | payer MEDICARE, BC, SELFPAY ==
[2021-04-16 17:23] LABS: Absolute Lymphocyte Count 1.09 X10^3/uL (0.83-4.51); Absolute Neutrophil Count 5.9 X10^3/uL (2.0-7.7); Basophil# 0.07 X10^3/uL; Basophil% 0.9 % (0-1); Eosinophil# 0.08 X10^3/uL; Hematocrit 38.3 % (37-47); Hemoglobin 12.4 g/dL (12.0-15.0); Lymphocyte # 1.09 X10^3/ul (0.83-4.51); Lymphocyte % 14.1 % (19-41); Mean Corp Hgb Conc 32.4 g/dL (32-36); Mean Corpuscular Hgb 29.8 pg (27.0-32.0); Mean Corpuscular Volume 92.1 fL (81-99); Mean Platelet Vol. 11.3 fl (6.2-12.0); Monocyte# 0.59 X10^3/uL; Monocyte% 7.6 % (0-10); NRBC Flagged by Analyzer 0 % (0-5); Neutrophil # 5.88 X10^3/uL (2.7-7.7); Platelet Count 312 K/mm3 (150-450); RBC Distribution Width CV 13.5 % (11.6-14.6); RBC Distribution Width SD 45.2 fl (35.1-43.9); Red Blood Count 4.16 M/mm3 (4.2-5.4); White Blood Count 7.7 K/mm3 (4.4-11.0)
[2021-04-16 17:32] LABS: ALB/GLOB Ratio 0.8 RATIO (0.9-2.4); AST(SGOT) 17 U/L (15-37); Alanine Aminotransfer ALT/SGPT 31 U/L (13-56); Albumin, Serum 3.1 g/dL (3.2-5.0); Alkaline Phosphatase 87 U/L (45-117); Anion Gap 10 (5-15); BUN 11 mg/dL (7-18); BUN/Creat Ratio 7.9 RATIO (10-20); Calcium,Total 8.8 mg/dL (8.5-10.1); Chloride 105 mmol/L (98-107); Creatinine, Serum 1.39 mg/dL (0.55-1.02); EST Glomerular Filtration Rate 40 mL/min (>60); Est Glom Filt Rate - Afr Amer 49 mL/min (>60); Globulin 3.9 g/dL (2.2-4.2); Glucose 174 mg/dL (74-106); Potassium 3.8 mmol/L (3.5-5.1); Sodium Level 140 mmol/L (136-145)
== END ==
PROVIDERS: PCP Family Medicine; Referring Provider Family Medicine; Visit Provider Family Medicine
DX: Z01.818 Encounter for other preprocedural examination (principal)
CPT/HCPCS: 36415; 80053; 85025

== ENCOUNTER 2021-04-23 13:18 | Inpatient (IN) | payer MEDICARE, BC, SELFPAY ==
[2021-04-22 11:55] LABS: Hemoglobin A1c 5.5 % (3.8-5.6)
[2021-04-23] VITALS (21 sets, daily range): BP systolic 99–145; BP diastolic 60–84; PULSE 60–86; RESP 16–18; TEMP 36.3–37.1; O2SAT 92–100; BMI 39.9
[2021-04-23] MEDS: Lactated Ringers 1,000 ML 100 ML IV ×2 (09:28→16:46)
--- NOTE | 2021-04-23 10:15 | RAD_ITS ---
STUDY: X-RAY - LEFT FOOT CLINICAL: Female, 66 years old. Intraoperative films for Achilles tendon repair TECHNIQUE: 4 intraoperative view(s) of the foot. COMPARISON: None. FINDINGS: 4 limited intraoperative films of the calcaneus and left foot were performed as the patient has undergone surgical repair of an Achilles tendon tear. No intraoperative complications noted. RAD/Foot 2 Views IMPRESSION: Intraoperative Achilles tendon repair, no demonstrated complications Electronically Signed: Narendra Turner MD at 17:09 EST , Service support ,
[2021-04-23] MEDS: Cefazolin 2 GM in 0.9% Normal Saline 100 ML IV (10:30)
--- NOTE | 2021-04-23 10:30 | TESH_PTH ---
PATIENT: MARY STARK LOC: [id number] U#:[id number] AGE/SX: 66/F ROOM: [facility] RE04/23/[address]: Dr. Gtao Luu MD : [id number] BED: 1 DIS: 04/27/2021 SPEC #: [id number] RECD: 04/23/21 13:32 STATUS: LILIANA AWILDA #: [id number] MARGARET: 04/23/21 10:[address]: Sarbjit Del Valle DEPT: SURGICAL PATHOLOGY RECD BY: Connie Egan ENTERED: 04/23/21 14:25 SP TYPE: TENDON OTHR DR: MD Dr. Valente Price DO Dr. Efewongbe Oleghe, MD Dr. Loren Kirchner, MD Barbara Tickton, HOTEL ASSISTANT GENERAL MANAGER-C Rell Singh, HOTEL ASSISTANT GENERAL MANAGER-C SHERIE Green Tissues: A - Tendon and tendon sheath, NOS B - Tendon and tendon sheath, NOS Procedures: Surgery Specimen Level III HEADER OPERATION: Debride and repair, detach and reattached Achilles tendon PRE-OP DIAGNOSIS: Achilles tendinopathy, hell spurs, plantar fasciitis, peroneal tendinopathy with tear TISSUE SUBMITTED: A ? Achilles heel spur with debridement, B ? Peroneus brevis tendon MICROSCOPIC DIAGNOSIS A. Achilles heel spur: Fragments of bone and dense fibroconnective tissue with reactive changes. B. Peroneus brevis tendon: Fragments of skeletal muscle tissue and fibroadipose tissue with reactive changes. 04/28/21 MICROSCOPIC DESCRIPTION Slides are reviewed. GROSS DESCRIPTION A - Received in fixative is one container labeled with the patient's name and designated Achilles heel spur with debridement. The specimen consists of multiple irregular fragments of light pink-white soft tissue that in aggregate measure 5 x 4.5 x 1 cm. Also present is an irregular fragment of gregory bone measuring 2.5 x 2 x 1 cm. [employer] Worker sections of bone and tissue are submitted in one cassette after decalcification. B - Received in fixative is one container labeled with the patient's name and designated peroneus brevis tendon. The specimen consists of two irregular fragments of pink-gregory soft tissue ranging in size from 1.3 to 6 cm. Serial sections do not reveal mass lesions. [employer] Worker sections are submitted in one cassette. / AM:janki 04/23/21 TC:5 CPT: 35727 x2, 13028
[2021-04-23] MEDS: Bupivacaine Mpf 0.5% 30 ML VIAL (13:01)
--- NOTE | 2021-04-23 13:35 | RAD_ITS ---
STUDY: X-RAY - LEFT CALCANEUS REASON FOR EXAM: Female, 66 years old. Postop TECHNIQUE: 2 view(s) of the calcaneus were obtained. COMPARISON: None. FINDINGS: 2 limited postoperative views of the calcaneus performed. Patient underwent debridement, and repair of Achilles tendon tear. Normal postoperative soft tissue swelling and subcutaneous emphysema. No plain film evidence of postoperative complications RAD/Calcaneus min 2 Views IMPRESSION: Normal postoperative soft tissue swelling and subcutaneous emphysema, no postoperative complications noted Electronically Signed: Narendra Turner MD at 16:51 EST , Service support ,
--- NOTE | 2021-04-23 14:05 | PCM.PN.HOSP ---
Documented by User: Elle Ballesteros NP-C 04/23/21 14:19 Subjective Subjective Patient seen and examined. Patient sitting in bed no distress noted. Patient denies pain at this time, currently in PACU. Objective Data Objective Data Vital Signs: Vital Signs Temp Pulse Resp BP Pulse Ox 97.9 F 60 16 102/62 94 04/23/21 13:19 04/23/21 14:02 04/23/21 14:02 04/23/21 14:02 04/23/21 14:02 Oxygen Flow Rate (L/min) 2 Oxygen Delivery Method Nasal Cannula Weight: 211 lb 10.3 oz Body Mass Index (BMI) 39.9 Intake & Output: Intake and Output for Last 24 Hours 04/21/21 04/22/21 04/23/21 23:59 23:59 23:59 Intake Total 110 / 110 Balance 110 / 110 Lab / Micro Data Result Diagrams: 04/24/21 06:43 04/24/21 06:43 Physical Exam Const alert, oriented x3 and no apparent distress HEENT head/scalp atraumatic Head and Scalp: normocephalic Eyes conjunctivae normal and no scleral icterus Neck full ROM and supple Resp normal respiratory effort and normal air movement Auscultation: diminished lung sounds Cardio regular rate, regular rhythm, S1 normal heart sound and S2 normal heart sound GI normal to inspection, nondistended, normoactive bowel sounds, soft to palpation and non-tender Extremity normal to inspection and normal capillary refill Extremity Narrative: Ran wrap and dressing dry and intact to left lower leg, incision not visualized at this time Skin no rashes or lesions noted, no wounds and skin turgor normal Neuro oriented x3, moves all extremities, no focal motor deficits and no sensory deficits noted Sensorium / Orientation: awake and alert Psych affect normal Assessment & Plan Assessment/Plan (1) Asthma with COPD with exacerbation: (2) Hypertension: (3) dyslipidemia: PLAN: Consulted by Dr. Del Valle for medical management, patient underwent an Achilles tendon repair and will need placement for SNF for continued PT and OT as well as assistance with ADLs. 1. Asthma with COPD -Continue home regimen of Qvar, ProAir, Mucinex -Continue oxygen therapy at 3 L nasal cannula at bedtime, as needed during the day 2. Hypertension -Continue patient's home medication regimen including amlodipine and hydrochlorothiazide. -Vital signs per protocol, currently stable 3. Hyperlipidemia -Continue simvastatin 4. Allergic rhinitis -Continue home medication regimen including Singulair, azelastine nasal spray, fluticasone 5. Debride and repair detach and reattach of Achilles tendon left -Surgery completed 04/23/2021 -Dr. Del Valle to manage -Patient will need placement at SNF for further PT and OT along with assistance due to weightbearing status. -Pain medication regimen per surgery DVT prophylaxis-SCD's This patient was seen by MAGALY Fernandez under the supervision of Dr. Wagner. Documented by User: Dr. Rell Wagner, 04/24/21 15:31 Objective Data Lab / Micro Data Result Diagrams: 04/24/21 06:43 04/24/21 06:43
--- NOTE | 2021-04-23 14:09 | OP.PCM_ITS ---
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 Debrided left peroneal brevis tendon sent to pathology 2. Debrided achilles tendon and retrocalcaneal spur/Haglunds deformity, left - s ent to pathology Estimated Blood Loss (mL): 10mL Description of Procedure: INDICATIONS: This is a 66 year-old female who has chronic left heel pain to the Achilles tendon, retrocalcaneal spur/Jhonny's Deformity, plantar fascia and infracalcaneal spur, as well as to the lateral ankle at the level of the peroneal tendons despite extensive nonsurgical care. Xrays and MRI have bene obtained pre operatively and reviewed. She would like to proceed with surgical intervention with procedures as noted above. She has been medically optimized for surgery, which has included by her PCP. The procedures were reviewed with her, as well as the goals, estimated recovery and the benefits vs risks with her. All the consent forms were reviewed with her and she freely signed them. OPERATIVE PROCEDURE: The patient was brought back into the operating room and was in the supine position. The patient received spinal anesthesia per the anesthesiologist. After anesthesia was obtained, she was carefully placed in the prone position and a well-padded pneumatic tourniquet was applied around her left thigh. A time-out was performed and the patient was properly identified and surgical plan was confirmed. The patient did receive prophylactic antibiotics for this procedure, which was cefazolin 2 g of intravenous Ancef. The left lower extre mity was scrubbed, prepped and draped in the usual aseptic fashion. Achilles tendon debridement.repair, detacth/reattach Achilles tendon with resection of retrocalcaneal spur and Jhonny's deformity: Further attention was directed to the left heel. There was noted to be a retrocalcaneal spur and Jhonny's deformity palpable underneath the skin on the posterior aspect of the calcaneus. The left foot was elevated and also exsanguinated with an Esmarch bandage and the left thigh pneumatic tourniquet was inflated to 300mmHg. Using #15 scalpel blade, a linear longitudinal skin incision was made overlying the posterior aspect of the distal Achilles tendon and the posterior calcaneus. Careful dissection was completed down to the insertion points of the Achilles tendon, and the paratenon was incised with a #15 scalpel blade, and was carefully reflected to visualize the Achilles tendon. The Achilles tendon was visualized, it was noted to be thickened with calcification intra substance consistent with chronic tendinosis, the nonviable tendon and calcification was carefully debrided away using a #15 scalpel blade - this debrided tendon was sent to pathology. Using #15 scalpel blade, a midline incision was made through the most distal aspect of the Achilles tendon and carefully reflected off of the calcaneus keeping the medial and lateral insertion points intact. The Jhonny deformity and the retrocalcaneal spur were visualized, in which the Jhonny deformity and retrocalcaneal spur were quite large. There was also a large retrocalcaneal bursa present which was debrided away and excised. The retrocalcaneal spur and Jhonny's deformities were excised using a powered sagittal saw, and were passed from the surgical field and sent to pathology along with the debrided Achilles tendon and bursa for further analysis. At this time, the site was flushed out with copious amounts of normal saline solution. The Achilles tendon was carefully anchored back down to it's insertion point on the posterior calcaneus using one Arthrex SpeedBridge. This was applied following the recommended manufactures technique guide. The Achilles tendon was also reinforced using 2-0 fiberwire. At this time, the Achilles tendon was intact and it was well secured to the posterior aspect of the calcaneus at its insertion. There was good plantarflexion of the foot and ankle with calf squeeze. There was a negative Cortez test meaning the Achilles tendon was intact with working well. The proper resection of the heel spurs and Jhonny's deformity was confirmed using intraoperative fluoroscopy. The site was flushed out with copious amounts of normal saline solution. The surgical site was stable. The paratenon was carefully reapproximated using 3-0 Vicryl. The subcutaneous tissue layer was carefully reapproximated using 3-0 Vicryl and the skin was carefully reapproximated using 4-0 Monocryl. Cavilon was gently painted along the sutured skin incision site and Steri-Strips were placed across the sutured skin incision. Plantar Fasciotomy and resection of infracalcaneal spur: Attention was directed to the plantar fascia. A skin incision was made to the medial hindfoot at the level of the origin of the plantar fascia on the inferior calcaneus. Careful dissection was completed down through the subcutaneous tissue layer. A plane was created superiorly and inferiorly around the plantar fascia. There was significant thickening, tightness, and fibrosis of the plantar fascia consistent with plantar fasciitis. The medial 50% of the plantar fascia was released via a plantar fasciotomy. The infracalcaneal spur was identified and was resected using a powered sagittal saw, resection was confirmed using intraoperative fluoroscopy. The site was flushed out with copious amounts of normal saline solution. The skin was reapproximated using 3-0 Monocryl. Peroneus brevis tendon debridement and repair: Attention was directed to the peroneal tendons, were a longitudinal skin incision was made over the peroneal tendons of the lateral ankle and hindfoot. Careful dissection was completed through the subcutaneous tissue to the peroneal retinaculum and peroneal tendon sheath. These were carefully incised and the peroneal tendons were visualized. It was noted there was tenosynovitis within the peroneal tendon sheath. It was noted there was a significant longitudinal split tear of the peroneus brevis tendon at the level of the lateral malleolus. The peroneus brevis was flat. There was tendinosis and mucoid degeneration of the tendon present at this level. The peroneus brevis tendon was debrided of all nonviable, degenerative tendinosis and mucoid degenerative, also there was a very low laying peroneus brevis muscle belly which was significantly hypertrophied at this level, this lo w laying muscle belly was debrided decompressing the site. The debrided peroneus brevis tendon and muscle were sent to pathology as specimen. The peroneus longus tendon was visualized and noted to he healthy, viable, with no tears, tendinosis or mucoid degeneration noted. The site was flushed out with copious amounts of normal saline solution. The peroneus brevis tendon was tubularized using 3-0 P rolene. The site was again flushed out with copious amounts of normal saline solution. The peroneal tendons were placed back into normal anatomic alignment. The peroneal retinaculums were reapproximated using 0 Prolene. The peroneal tendon sheath as well as the peroneal retinaculum were reapproximated using 3-0 Vicryl. The subcutaneous tissue was reapproximated using 3-0 Vicryl. The skin was reapproximated using 4-0 Monocryl. A total of 10mL of 0.5% bupivacaine plain was given as a regional infiltrative nerve block around the surgical sites. The pneumatic tourniquet was deflated and there was immediate return of warmth and perfusion to the right foot with normal temperature gradient (total tourniquet time was 117 minutes). Capillary fill time was less than three seconds. A dressing was applied, which consisted of Betadine-soaked adaptic, 4 x 4 gauze, Kerlix, and Ran bandages. A well padded below knee posterior splint was applied to the left foot/ankle/leg with heel offloaded. Of note all vital structures, including all vital neurovascular structures and tendon structures were properly identified, protected and retracted as necessary throughout the above operative procedure. The patient was transported from the operating room to the recovery room with vital signs stable and in good condition. Postoperative orders were placed. She was admitted for post operative pain control, and planned nursing facility placement. Calcaneal xrays were obtained and reviewed which confirmed resection of the Jhonny's deformity and heel spurs without complications. Grafts/Implants Used: Arthrex Speedbridge Complications None
--- NOTE | 2021-04-23 14:13 | PCM.HP.STD ---
HPI - General General Date of Admission: 04/23/21 HPI Narrative MARY STARK, is a 66 F who presents s/p left foot/ankle surgery due to chronic pain despite extensive nonsurgical care. This was a planned admission (in which we anticipate at least 2 midnight stay) for post op pain control as well as nursing facility placement. Patient will need assistance post op at nursing facility to help her stay off of her foot. She did well with the surgery, no acute issues. [facility] Medical History (Updated 04/23/21 @ 18:[address] Sarbjit Del Valle, DPM) dyslipidemia Anxiety Arthritis Asthma Asthma with COPD with exacerbation Back pain Chronic cough COPD exacerbation Degenerative joint disease Depression Former smoker High cholesterol History of edema History of pain when walking Hypertension Hypertension Left acute otitis media Leg cramps Migraine headache On home oxygen therapy Wears dentures Wears glasses Home Medications amlodipine 10 mg PO DAILY 09/25/18 [History Last Taken 04/23/21] gabapentin 300 mg PO TID PRN PRN 09/25/18 [History Last Taken 04/22/21] hydrochlorothiazide 12.5 mg PO DAILY 09/25/18 [History Last Taken 04/22/21] meloxicam 15 mg PO DAILY 09/25/18 [History Last Taken 04/16/21] guaifenesin 1,200 mg PO BID #14 tab 09/28/18 [Rx Last Taken 04/23/21] albuterol sulfate 2.5 mg INHALATION Q4H PRN #180 ml 11/16/20 [Rx Last Taken 04/22/21] azelastine 137 mcg (0.1 %) nasal spray aerosol 1 spray INTRANASAL BID #30 ml 11/16/20 [Rx Last Taken 04/22/21] beclomethasone dipropionate 80 mcg/actuation HFA breath activated aerosol 2 inh INHALATION Q12H #10.6 g 11/16/20 [Rx Last Taken 04/22/21] fluticasone propionate 50 mcg/actuation nasal spray,suspension 2 spray INTRANASAL DAILY #16 g 11/16/20 [Rx Last Taken 04/22/21] montelukast 10 mg tablet 10 mg PO QPM #30 tab 11/16/20 [Rx Last Taken 04/22/21] oxygen-air delivery systems 04/02/21 [History Last Taken 04/22/21] Allergy/AdvReac Type Severity Reaction Status Date / Time levofloxacin [From Levaquin] Allergy Rash Verified 04/02/21 11:07 Sulfa (Sulfonamide Allergy itching as Verified 04/23/21 09:15 Antibiotics) a child Surgical History (Updated 04/02/21 @ 11:19 by Thi Torres) Hx laparoscopic cholecystectomy Hx of colonoscopy Hx of tubal ligation Social History (Reviewed 11/16/20 @ 10:13 by Nkechi Wen 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, 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) Smoking Status: Former smoker Tobacco: How many years used: 4 how long ago did patient quit smokin, 0.25ppd second hand exposure: Yes Vital Signs Vital Signs Vital Signs: 04/23/21 09:16 04/23/21 13:19 04/23/21 13:25 Temperature 98.7 F 97.9 F Temperature Source Temporal Temporal Pulse Rate 79 73 81 Respiratory Rate 18 16 16 Respiratory Pattern Normal Normal Blood Pressure 145/70 H 99/60 105/68 Blood Pressure Mean 95 73 80 Blood Pressure Source Monitor Monitor Monitor Blood Pressure Position Sitting Semi-Fowlers Semi-Fowlers Blood Pressure Location Left Arm Left Arm Right Arm Baseline BP 145/70 145/70 Pulse Ox 99 94 93 Oxygen Delivery Method Room Air Room Air Room Air Oxygen Flow Rate (L/min) 04/23/21 13:41 04/23/21 13:49 04/23/21 14:02 Temperature Temperature Source Pulse Rate 70 63 60 Respiratory Rate 16 16 16 Respiratory Pattern Blood Pressure 102/81 H 103/67 102/62 Blood Pressure Mean 88 79 75 Blood Pressure Source Monitor Monitor Monitor Blood Pressure Position Semi-Fowlers Semi-Fowlers Semi-Fowlers Blood Pressure Location Left Arm Right Arm Right Arm Baseline BP 145/70 145/70 145/70 Pulse Ox 92 92 94 Oxygen Delivery Method Room Air Room Air Nasal Cannula Oxygen Flow Rate (L/min) 2 Weight Weight: 96 kg Body Mass Index (BMI) 39.9 Physical Exam Const alert, oriented x3 and no apparent distress Extremity Extremity Narrative: Dressing/splint left foot/ankle/leg is clean, dry and intact, CFT < 2 seconds to all toes. No evidence of complications. Assessment & Plan Assessment/Plan (1) Achilles tendinitis, left leg: (2) Calcaneal spur, left foot: (3) Plantar fascia syndrome: (4) Other injury of muscle(s) and tendon(s) of peroneal muscle group at lower leg level, left leg, subsequent encounter: PLAN: Patient is s/p surgery on left foot/ankle on 04/23/2021, she is being admitted for post operative management, pain control, and nursing placement. Surgery went well, no complications. No weightbearing left foot. Keep left foot elevated. Keep heel offloaded. Keep dressing clean, dry and intact. Pain control: Acetaminophen, Oxyir, Dilaudid. DVT Prophylaxis - start Lovenox tomorrow. PT/OT eval. Recommend that patient will need nursing facility placement upon discharge. Patient's other medical problems - medicine team was consulted, greatly appreciate assistance.
[2021-04-23] MEDS: oxyCODONE 5 MG Tablet PO ×2 (16:42→22:53)
--- NOTE | 2021-04-23 16:54 | PCS.PANDOC ---
PANDEMIC DOCUMENTATION INITIATED: Date: 01/18/2021 Time: 190
[2021-04-23] MEDS: HYDROmorphone 1 MG/ML Syringe IV ×2 (18:28→22:51)
[2021-04-23] MEDS: 0.9% Saline Lock 10 ML Syringe IV (18:28)
[2021-04-23] MEDS: Budesonide Respules 0.5 MG/2 ML AMPUL.NEB. INHALATION (19:39)
[2021-04-23] MEDS: Gabapentin 300 MG Capsule PO (20:05)
[2021-04-23] MEDS: Acetaminophen 325 MG Tablet 650 MG PO (20:05)
[2021-04-23] MEDS: guaiFENesin 1,200 MG Tablet 1200 MG PO (21:15)
[2021-04-23] MEDS: Montelukast 10 MG Tablet PO (21:15)
[2021-04-23] MEDS: Cefazolin 1 GM/50 ML BAG IV (21:15)
[2021-04-24 02:00] VITALS: BP 137/77; PULSE 76; RESP 16; TEMP 36.9; O2SAT 92
[2021-04-24] MEDS: oxyCODONE 5 MG Tablet PO ×4 (02:38→23:08)
[2021-04-24] MEDS: Gabapentin 300 MG Capsule PO ×2 (02:38→10:50)
[2021-04-24] MEDS: Acetaminophen 325 MG Tablet 650 MG PO ×4 (02:39→23:08)
[2021-04-24] MEDS: HYDROmorphone 1 MG/ML Syringe IV ×4 (02:39→19:55)
[2021-04-24] MEDS: Lactated Ringers 1,000 ML 100 ML IV ×3 (02:46→23:10)
[2021-04-24] MEDS: Cefazolin 1 GM/50 ML BAG IV ×2 (06:34→13:36)
[2021-04-24 07:22] VITALS: O2SAT 92
--- NOTE | 2021-04-24 08:13 | PCM.PROGNOTE ---
Subjective Subjective This 66-year-old female was seen bedside postoperative day #1 left lower extremity Achilles tendon repair with frozen section, plantar fasciotomy with her section, and peroneal tendon tear repair. She relates her pain currently is 6 out of 10. She denies fever, chill, nausea, vomiting, shortness of breath, chest pain, calf pain. She is concerned she is not able to keep weight off of her surgical limb if she returns home and is being considered for senior care facility placement. Objective Data Objective Data Vital Signs: Vital Signs Temp Pulse Resp BP Pulse Ox 98.5 F 76 16 137/77 H 92 04/24/21 02:00 04/24/21 02:00 04/24/21 02:00 04/24/21 02:00 04/24/21 07:22 Oxygen Flow Rate (L/min) 3 Oxygen Delivery Method Nasal Cannula Weight: 96 kg Body Mass Index (BMI) 39.9 Intake & Output: Intake and Output for Last 24 Hours 04/22/21 04/23/21 04/24/21 23:59 23:59 23:59 Intake Total 890 / 1190 1350 / 1350 Output Total 1600 / 1600 Balance 890 / 90 -250 / -250 Lab / Micro Data Result Diagrams: 04/24/21 06:43 04/24/21 06:43 Radiography Diagnostic Testing: Radiology Impression Foot X-Ray 04/23/21 10:15 IMPRESSION: Intraoperative Achilles tendon repair, no demonstrated complications Electronically Signed: Narendra Turner MD at 17:09 EST , Service support , Os Calcis X-ray 04/23/21 13:35 IMPRESSION: Normal postoperative soft tissue swelling and subcutaneous emphysema, no postoperative complications noted Electronically Signed: Narendra Turner MD at 16:51 EST , Service support , Physical Exam Const alert, oriented x3 and no apparent distress Extremity Extremity Narrative: Dressing/splint left foot/ankle/leg is clean, dry and intact, CFT < 2 seconds to all toes. No evidence of complications. Active range of motion all digits left foot. Epicritic sensation intact to all digits and dorsal foot. Negative Thacker sign bilateral. Left lower extremity remains in a rectus position. Assessment & Plan Assessment/Plan (1) Achilles tendinitis, left leg: (2) Calcaneal spur, left foot: (3) Plantar fascia syndrome: (4) Other injury of muscle(s) and tendon(s) of peroneal muscle group at lower leg level, left leg, subsequent encounter: PLAN: Patient is s/p surgery on left foot/ankle on 04/23/2021, she is being admitted for post operative management, pain control, and nursing placement. Surgery went well, no complications. No weightbearing left foot. Keep left foot elevated. Keep heel offloaded. Keep dressing clean, dry and intact. Pain control: Acetaminophen, Oxyir, Dilaudid. DVT Prophylaxis - start Lovenox today. PT/OT eval. To offload posterior surgical site by hanging heel over stacked pillows and blankets. Recommend that patient will need nursing facility placement upon discharge. Patient's other medical problems - medicine team was consulted, greatly appreciate assistance. Please call with questions. Ericka Mac DPM, [facility]
[2021-04-24 08:23] LABS: Absolute Lymphocyte Count 0.79 X10^3/uL (0.83-4.51); Absolute Neutrophil Count 5.2 X10^3/uL (2.0-7.7); Basophil# 0.05 X10^3/uL; Basophil% 0.7 % (0-1); Eosinophil# 0.08 X10^3/uL; Eosinophils% 1.1 % (0-5); Hematocrit 36.3 % (37-47); Lymphocyte # 0.79 X10^3/ul (0.83-4.51); Lymphocyte % 11.3 % (19-41); Mean Corp Hgb Conc 33.1 g/dL (32-36); Mean Corpuscular Hgb 30.3 pg (27.0-32.0); Mean Corpuscular Volume 91.7 fL (81-99); Mean Platelet Vol. 11.5 fl (6.2-12.0); Monocyte# 0.82 X10^3/uL; Monocyte% 11.7 % (0-10); NRBC Flagged by Analyzer 0 % (0-5); Neutrophil # 5.23 X10^3/uL (2.7-7.7); Neutrophil % 74.8 % (47-70); Platelet Count 244 K/mm3 (150-450); RBC Distribution Width CV 13.2 % (11.6-14.6); RBC Distribution Width SD 44.2 fl (35.1-43.9); Red Blood Count 3.96 M/mm3 (4.2-5.4)
[2021-04-24 08:38] LABS: Anion Gap 4 (5-15); BUN 5 mg/dL (7-18); BUN/Creat Ratio 9.9 RATIO (10-20); Calcium,Total 8.6 mg/dL (8.5-10.1); Chloride 101 mmol/L (98-107); Creatinine, Serum 0.51 mg/dL (0.55-1.02); EST Glomerular Filtration Rate 130 mL/min (>60); Est Glom Filt Rate - Afr Amer 157 mL/min (>60); Estimated Creatinine Clearance 82.99 ml/min; Glucose 112 mg/dL (74-106); Potassium 3.7 mmol/L (3.5-5.1); Sodium Level 136 mmol/L (136-145)
[2021-04-24 08:43] VITALS: BP 105/60; PULSE 78; RESP 16; TEMP 37; O2SAT 95
[2021-04-24] MEDS: Enoxaparin 40 MG/0.4 ML Syringe SC (10:36)
[2021-04-24] MEDS: amLODIPine 10 MG Tablet PO (10:36)
[2021-04-24] MEDS: hydroCHLOROthiazide 12.5mg 12.5 MG PO (10:36)
[2021-04-24] MEDS: guaiFENesin 1,200 MG Tablet 1200 MG PO ×2 (10:36→19:57)
--- NOTE | 2021-04-24 11:13 | PCM.PN.HOSP ---
Documented by User: Elle Ballesteros NP-C 04/24/21 11:18 Subjective Subjective Patient seen and examined. Nurse at bedside patient just received pain medication. Patient sitting in bed no distress noted. Patient states that she prefers to go to TCU upon discharge. Objective Data Objective Data Vital Signs: Vital Signs Temp Pulse Resp BP Pulse Ox 98.6 F 78 16 105/60 95 04/24/21 08:43 04/24/21 08:43 04/24/21 08:43 04/24/21 08:43 04/24/21 08:43 Oxygen Flow Rate (L/min) 3 Oxygen Delivery Method Nasal Cannula Weight: 211 lb 10.3 oz Body Mass Index (BMI) 39.9 Intake & Output: Intake and Output for Last 24 Hours 04/22/21 04/23/21 04/24/21 23:59 23:59 23:59 Intake Total 890 / 1190 1350 / 1350 Output Total 1600 / 1600 Balance 890 / 90 -250 / -250 Lab / Micro Data Result Diagrams: 04/24/21 06:43 04/24/21 06:43 Labs: Laboratory Results - last 24 hr 04/24/21 06:43: WBC 7.0, RBC 3.96 L, Hgb 12.0, Hct 36.3 L, MCV 91.7, MCH 30.3, MCHC 33.1, RDW Std Deviation 44.2 H, RDW Coeff of Arie 13.2, Plt Count 244, MPV 11.5, Immature Gran % (Auto) 0.400, Neut % (Auto) 74.8 H, Lymph % (Auto) 11.3 L, [place] % (Auto) 11.7 H, Eos % (Auto) 1.1, Baso % (Auto) 0.7, Absolute Neuts (auto) 5.2, Absolute Lymphs (auto) 0.79 L, Nucleated RBC % 0 04/24/21 06:43: Sodium 136, Potassium 3.7, Chloride 101, Carbon Dioxide 31.0, Anion Gap 4 L, BUN 5 L, Creatinine 0.51 L, Estim Creat Clear Calc 82.99, Est GFR (MDRD) Af Amer 157, Est GFR (MDRD) Non-Af 130, BUN/Creatinine Ratio 9.9 L, Glucose 112 H, Calcium 8.6 Radiography Diagnostic Testing: Radiology Impression Foot X-Ray 04/23/21 10:15 IMPRESSION: Intraoperative Achilles tendon repair, no demonstrated complications Electronically Signed: Narendra Turner MD at 17:09 EST , Service support , Os Calcis X-ray 04/23/21 13:35 IMPRESSION: Normal postoperative soft tissue swelling and subcutaneous emphysema, no postoperative complications noted Electronically Signed: Narendra Turner MD at 16:51 EST , Service support , Physical Exam Const alert, oriented x3 and no apparent distress HEENT head/scalp atraumatic Eyes conjunctivae normal and no scleral icterus Neck full ROM and supple Resp normal respiratory effort and normal air movement Auscultation: diminished lung sounds Cardio regular rate, regular rhythm, S1 normal heart sound and S2 normal heart sound GI normal to inspection, nondistended, normoactive bowel sounds, soft to palpation and non-tender Extremity normal to inspection and normal capillary refill Extremity Narrative: Ran wrap and dressing dry and intact to left lower leg, incision not visualized at this time Skin no rashes or lesions noted, no wounds and skin turgor normal Neuro oriented x3, moves all extremities, no focal motor deficits and no sensory deficits noted Sensorium / Orientation: awake and alert Psych affect normal Assessment & Plan Assessment/Plan (1) Asthma with COPD with exacerbation: (2) Hypertension: (3) dyslipidemia: PLAN: Consulted by Dr. Del Valle for medical management, patient underwent an Achilles tendon repair and will need placement for SNF for continued PT and OT as well as assistance with ADLs. 1. Asthma with COPD -Continue home regimen of Qvar, ProAir, Mucinex -Continue oxygen therapy at 3 L nasal cannula at bedtime, as needed during the day 2. Hypertension -Continue patient's home medication regimen including amlodipine and hydrochlorothiazide. -Vital signs per protocol, currently stable 3. Hyperlipidemia -Continue simvastatin 4. Allergic rhinitis -Continue home medication regimen including Singulair, azelastine nasal spray, fluticasone 5. Debride and repair detach and reattach of Achilles tendon left -Surgery completed 04/23/2021 -Dr. Del Valle to manage -Patient will need placement at SNF for further PT and OT along with assistance due to weightbearing status. -Pain medication regimen per surgery Discharge planning-patient will go to TCU on Monday DVT prophylaxis-SCD's This patient was seen by Elle Ballesteros, DAVID-C under the supervision of Dr. Wagner. Documented by User: Dr. Rell Wagner, DO 04/24/21 15:33 Objective Data Lab / Micro Data Result Diagrams: 04/24/21 06:43 04/24/21 06:43 Charges/Coding Addendum Addendum: Patient was seen and examined today independently of Radha Ballesteros, she complains of left foot pain from her surgery, otherwise she has no complaints. We are unable to get the patient placed in TCU this weekend, there would be a bed available on Monday. On examination she appeared in good health and spirits, she does not appear to be in any distress. Vital signs as documented. Skin warm and dry and without overt rashes. Neck without JVD, thyroid appears normal, trachea is midline, neck is supple. Lungs clear, normal air movement was noted. Heart exam notable for regular rhythm, normal sounds and absence of murmurs, rubs or gallops. Abdomen unremarkable and without evidence of organomegaly, masses, or abdominal aortic enlargement, bowel sounds are present in all 4 quadrants, no abdominal tenderness was noted. Extremities-patient's left lower leg was wrapped with surgical dressing and a splint, this was not removed for inspection, patient's left toes are warm and nonpainful. Neuro: Cranial nerves II through XII are grossly intact, no focal motor deficits were noted, sensation to light touch and pinprick is intact, motor exam 5/5 throughout. Psych: Patient is alert and oriented x3, she does not appear anxious or depressed, she does not appear agitated. Patient appears medically stable at this time, I have reviewed Radha Ballesteros's progress note including her medical assessment and plan of care and endorse it. Visit Charges Inpatient E&M: 66542 Subs Hosp L2
--- NOTE | 2021-04-24 12:18 | CM.ED ---
SANDI Note Referral Source: CM Referral Reason: Discharge planning SANDI contacted Liz at TCU. No beds today but on Monday. SANDI updated CM. SANDI met with patient to complete Assessment: PCP: Dr. Rodrigues Specialist: Dr. Ledbetter, Pulmonary Preferred [facility]acy: [facility] Insurance: Medicare and [place] Prespcrition Benefits: Carmella Living Will: No. SW offered HCPOA and LW paperwork and patient open to receiving paperwork. LNOK: Patient's , Mansoor and patient's son, Soren Living Arrangedment: Patient resides in a 2 story house. She does not go upstairs to the 2nd floor. She only goes down to the basement for laundry. There are 4 steps into the house. Prior Level of Functioning: Independent DME: Patient reports she has access to crutches and walker. Patient said that she also has requested a knee walker. HHC/SNF: None Plan: TCU at discharge. SANDI provided patient with HCPOA/LW paperwork. Sent email to Liz in TCU. Yamilex HANLEY
[2021-04-24 13:47] VITALS: BP 132/66; PULSE 89; RESP 16; TEMP 37.8; O2SAT 95
[2021-04-24] MEDS: Juven (unflavored) Packet 1 PACKET PO (16:41)
[2021-04-24 19:11] VITALS: PULSE 89; RESP 16; O2SAT 95
[2021-04-24] MEDS: Budesonide Respules 0.5 MG/2 ML AMPUL.NEB. INHALATION (19:13)
[2021-04-24] MEDS: Montelukast 10 MG Tablet PO (19:58)
[2021-04-24 20:00] VITALS: BP 141/62; PULSE 82; RESP 18; TEMP 37.3; O2SAT 95
[2021-04-25] VITALS (7 sets, daily range): BP systolic 110–137; BP diastolic 61–73; PULSE 76–89; RESP 16–20; TEMP 36.9–37.3; O2SAT 92–96
[2021-04-25] MEDS: HYDROmorphone 1 MG/ML Syringe IV ×5 (00:49→23:01)
[2021-04-25] MEDS: Acetaminophen 325 MG Tablet 650 MG PO ×3 (05:37→21:43)
[2021-04-25] MEDS: oxyCODONE 5 MG Tablet PO ×4 (05:37→21:44)
[2021-04-25 05:52] LABS: Absolute Lymphocyte Count 1.14 X10^3/uL (0.83-4.51); Absolute Neutrophil Count 4.4 X10^3/uL (2.0-7.7); Basophil# 0.03 X10^3/uL; Basophil% 0.5 % (0-1); Eosinophil# 0.11 X10^3/uL; Eosinophils% 1.7 % (0-5); Hematocrit 36.2 % (37-47); Hemoglobin 12.1 g/dL (12.0-15.0); Lymphocyte # 1.14 X10^3/ul (0.83-4.51); Lymphocyte % 17.7 % (19-41); Mean Corp Hgb Conc 33.4 g/dL (32-36); Mean Corpuscular Hgb 30.3 pg (27.0-32.0); Mean Corpuscular Volume 90.7 fL (81-99); Mean Platelet Vol. 11.1 fl (6.2-12.0); Monocyte# 0.74 X10^3/uL; Monocyte% 11.5 % (0-10); NRBC Flagged by Analyzer 0 % (0-5); Neutrophil # 4.38 X10^3/uL (2.7-7.7); Platelet Count 214 K/mm3 (150-450); RBC Distribution Width CV 13.2 % (11.6-14.6); RBC Distribution Width SD 44.1 fl (35.1-43.9); Red Blood Count 3.99 M/mm3 (4.2-5.4); White Blood Count 6.4 K/mm3 (4.4-11.0)
[2021-04-25 06:20] LABS: Anion Gap 4 (5-15); BUN 9 mg/dL (7-18); BUN/Creat Ratio 16.5 RATIO (10-20); Calcium,Total 8.3 mg/dL (8.5-10.1); Chloride 100 mmol/L (98-107); Creatinine, Serum 0.55 mg/dL (0.55-1.02); EST Glomerular Filtration Rate 119 mL/min (>60); Est Glom Filt Rate - Afr Amer 144 mL/min (>60); Estimated Creatinine Clearance 76.95 ml/min; Glucose 106 mg/dL (74-106); Potassium 3.7 mmol/L (3.5-5.1); Sodium Level 138 mmol/L (136-145)
--- NOTE | 2021-04-25 06:37 | PCM.PROGNOTE ---
Subjective Subjective This 66-year-old female was seen bedside postoperative day #2 left lower extremity Achilles tendon repair with spur resection, plantar fasciotomy with spur resection, and peroneal tendon tear repair. She relates her pain currently is 8 out of 10, and was therefore premedicated with IV medication prior to dressing change. She denies fever, chill, nausea, vomiting, shortness of breath, chest pain, calf pain. She is waiting to see if she qualifies for correction facility placement and would like to go to the transitional care unit. Objective Data Objective Data Vital Signs: Vital Signs Temp Pulse Resp BP Pulse Ox 98.6 F 82 20 H 134/65 H 96 04/25/21 02:00 04/25/21 02:00 04/25/21 02:00 04/25/21 02:00 04/25/21 02:00 Oxygen Flow Rate (L/min) 3 Oxygen Delivery Method Room Air Weight: 96 kg Body Mass Index (BMI) 39.9 Intake & Output: Intake and Output for Last 24 Hours 04/23/21 04/24/21 04/25/21 23:59 23:59 23:59 Intake Total 890 / 1190 3356.67 / 3856.67 500 / 500 Output Total 1600 / 2500 900 / 900 Balance 890 / 90 1756.67 / 1356.67 -400 / -400 Lab / Micro Data Result Diagrams: 04/25/21 05:30 04/25/21 05:30 Labs: Laboratory Results - last 24 hr 04/24/21 06:43: WBC 7.0, RBC 3.96 L, Hgb 12.0, Hct 36.3 L, MCV 91.7, MCH 30.3, MCHC 33.1, RDW Std Deviation 44.2 H, RDW Coeff of Arie 13.2, Plt Count 244, MPV 11.5, Immature Gran % (Auto) 0.400, Neut % (Auto) 74.8 H, Lymph % (Auto) 11.3 L, [place] % (Auto) 11.7 H, Eos % (Auto) 1.1, Baso % (Auto) 0.7, Absolute Neuts (auto) 5.2, Absolute Lymphs (auto) 0.79 L, Nucleated RBC % 0 04/24/21 06:43: Sodium 136, Potassium 3.7, Chloride 101, Carbon Dioxide 31.0, Anion Gap 4 L, BUN 5 L, Creatinine 0.51 L, Estim Creat Clear Calc 82.99, Est GFR (MDRD) Af Amer 157, Est GFR (MDRD) Non-Af 130, BUN/Creatinine Ratio 9.9 L, Glucose 112 H, Calcium 8.6 04/25/21 05:30: WBC 6.4, RBC 3.99 L, Hgb 12.1, Hct 36.2 L, MCV 90.7, MCH 30.3, MCHC 33.4, RDW Std Deviation 44.1 H, RDW Coeff of Arie 13.2, Plt Count 214, MPV 11.1, Immature Gran % (Auto) 0.600, Neut % (Auto) 68.0, Lymph % (Auto) 17.7 L, [place] % (Auto) 11.5 H, Eos % (Auto) 1.7, Baso % (Auto) 0.5, Absolute Neuts (auto) 4.4, Absolute Lymphs (auto) 1.14, Nucleated RBC % 0 04/25/21 05:30: Sodium 138, Potassium 3.7, Chloride 100, Carbon Dioxide 34.0 H, Anion Gap 4 L, BUN 9, Creatinine 0.55, Estim Creat Clear Calc 76.95, Est GFR (MDRD) Af Amer 144, Est GFR (MDRD) Non-Af 119, BUN/Creatinine Ratio 16.5, Glucose 106, Calcium 8.3 L Physical Exam Const alert, oriented x3 and no apparent distress Extremity Extremity Narrative: Dressing/splint left foot/ankle/leg is clean, dry and intact with strikethrough noted as expected. Upon removal there are no signs of erythema, gapping, necrosis streaking or infection. The incisions are intact and well coapted with Monocryl sutures in place to the posterior heel, medial heel, and lateral ankle. CFT < 2 seconds to all toes. No evidence of complications. Active range of motion all digits left foot. Epicritic sensation intact to all digits and dorsal foot. Negative Thacker sign bilateral. Left lower extremity remains in a rectus position. Assessment & Plan Assessment/Plan (1) Achilles tendinitis, left leg: (2) Calcaneal spur, left foot: (3) Plantar fascia syndrome: (4) Other injury of muscle(s) and tendon(s) of peroneal muscle group at lower leg level, left leg, subsequent encounter: PLAN: Patient is s/p surgery on left foot/ankle on 04/23/2021, she is being admitted for post operative management, pain control, and nursing placement. Her vitals are stable and she is afebrile. She does not demonstrate any leukocytosis. No weightbearing left foot. To keep working with PT/OT. Keep left foot elevated. Keep heel offloaded. To keep dressing and splint clean, dry and intact. Pain control: Acetaminophen, Oxyir, Dilaudid. DVT Prophylaxis -restarted Lovenox. Recommend that patient will need nursing facility placement upon discharge. Social work consult for discharge planning and placement. Patient's other medical problems - medicine team was consulted, greatly appreciate assistance. Nutritional supplementation ordered to optimize post surgical healing. Please call with questions. Ericka Mac DPM, F[facility]
[2021-04-25] MEDS: Juven (unflavored) Packet 1 PACKET PO ×2 (07:49→16:34)
[2021-04-25] MEDS: Lactated Ringers 1,000 ML 100 ML IV ×2 (09:00→19:06)
[2021-04-25] MEDS: Enoxaparin 40 MG/0.4 ML Syringe SC (09:01)
[2021-04-25] MEDS: guaiFENesin 1,200 MG Tablet 1200 MG PO ×2 (09:01→21:43)
[2021-04-25] MEDS: amLODIPine 10 MG Tablet PO (09:01)
[2021-04-25] MEDS: hydroCHLOROthiazide 12.5mg 12.5 MG PO (09:01)
[2021-04-25] MEDS: Gabapentin 300 MG Capsule PO (09:03)
--- NOTE | 2021-04-25 10:52 | PCM.PN.HOSP ---
Documented by User: Elle Ballesteros NP-C 04/25/21 10:54 Subjective Subjective Patient seen and examined. Patient reporting pain in her foot, states Dr. Mac was just in to change surgical dressing. Patient states that she did receive pain medication directly prior to dressing change. Patient denies other needs at this time. Objective Data Objective Data Vital Signs: Vital Signs Temp Pulse Resp BP Pulse Ox 98.4 F 76 16 110/67 94 04/25/21 07:38 04/25/21 07:38 04/25/21 07:38 04/25/21 07:38 04/25/21 07:44 Oxygen Flow Rate (L/min) 3 Oxygen Delivery Method Nasal Cannula Weight: 211 lb 10.3 oz Body Mass Index (BMI) 39.9 Intake & Output: Intake and Output for Last 24 Hours 04/23/21 04/24/21 04/25/21 23:59 23:59 23:59 Intake Total 890 / 1190 3356.67 / 3856.67 1983.33 / 1983.33 Output Total 1600 / 2500 1700 / 1700 Balance 890 / 90 1756.67 / 1356.67 283.33 / 283.33 Lab / Micro Data Result Diagrams: 04/25/21 05:30 04/25/21 05:30 Labs: Laboratory Results - last 24 hr 04/25/21 05:30: WBC 6.4, RBC 3.99 L, Hgb 12.1, Hct 36.2 L, MCV 90.7, MCH 30.3, MCHC 33.4, RDW Std Deviation 44.1 H, RDW Coeff of Arie 13.2, Plt Count 214, MPV 11.1, Immature Gran % (Auto) 0.600, Neut % (Auto) 68.0, Lymph % (Auto) 17.7 L, [place] % (Auto) 11.5 H, Eos % (Auto) 1.7, Baso % (Auto) 0.5, Absolute Neuts (auto) 4.4, Absolute Lymphs (auto) 1.14, Nucleated RBC % 0 04/25/21 05:30: Sodium 138, Potassium 3.7, Chloride 100, Carbon Dioxide 34.0 H, Anion Gap 4 L, BUN 9, Creatinine 0.55, Estim Creat Clear Calc 76.95, Est GFR (MDRD) Af Amer 144, Est GFR (MDRD) Non-Af 119, BUN/Creatinine Ratio 16.5, Glucose 106, Calcium 8.3 L Physical Exam Const alert, oriented x3 and no apparent distress HEENT head/scalp atraumatic Eyes conjunctivae normal and no scleral icterus Neck full ROM and supple Resp normal respiratory effort and normal air movement Auscultation: diminished lung sounds Cardio regular rate, regular rhythm, S1 normal heart sound and S2 normal heart sound GI normal to inspection, nondistended, normoactive bowel sounds, soft to palpation and non-tender Extremity normal to inspection and normal capillary refill Extremity Narrative: Ran wrap and dressing dry and intact to left lower leg, incision not visualized at this time Skin no rashes or lesions noted, no wounds and skin turgor normal Neuro oriented x3, moves all extremities, no focal motor deficits and no sensory deficits noted Sensorium / Orientation: awake and alert Psych affect normal Assessment & Plan Assessment/Plan (1) Asthma with COPD with exacerbation: (2) Hypertension: (3) dyslipidemia: PLAN: Consulted by Dr. Del Valle for medical management, patient underwent an Achilles tendon repair and will need placement for SNF for continued PT and OT as well as assistance with ADLs. 1. Asthma with COPD -Continue home regimen of Qvar, ProAir, Mucinex -Continue oxygen therapy at 3 L nasal cannula at bedtime, as needed during the day 2. Hypertension -Continue patient's home medication regimen including amlodipine and hydrochlorothiazide. -Vital signs per protocol, currently stable 3. Hyperlipidemia -Continue simvastatin 4. Allergic rhinitis -Continue home medication regimen including Singulair, azelastine nasal spray, fluticasone 5. Debride and repair detach and reattach of Achilles tendon left -Surgery completed 04/23/2021 -Dressing changed by Dr. Mac 04/24/21 -Patient will need placement at SNF for further PT and OT along with assistance due to weightbearing status. -Pain medication regimen per surgery Discharge planning-patient will go to TCU on Monday DVT prophylaxis-SCD's This patient was seen by Elle Ballesteros NP-C under the supervision of Dr. Wagner. Documented by User: Dr. Rell Wagner DO 04/25/21 11:57 Objective Data Lab / Micro Data Result Diagrams: 04/25/21 05:30 04/25/21 05:30 Charges/Coding Addendum Addendum: Patient was seen and examined independently of Radha Ballesteros today, she Complains of left foot pain which is severe according to the patient, I have taken the liberty of increasing the patient's pain medication. On examination she appeared in good health and spirits, she does not appear to be in any distress. Vital signs as documented. Skin warm and dry and without overt rashes. Neck without JVD, thyroid appears normal, trachea is midline, neck is supple. Lungs clear, normal air movement was noted. Heart exam notable for regular rhythm, normal sounds and absence of murmurs, rubs or gallops. Abdomen unremarkable and without evidence of organomegaly, masses, or abdominal aortic enlargement, bowel sounds are present in all 4 quadrants, no abdominal tenderness was noted. Extremities nonedematous, no cyanosis was noted, no clubbing was noted. Neuro: Cranial nerves II through XII are grossly intact, no focal motor deficits were noted, sensation to light touch and pinprick is intact, motor exam 5/5 throughout. Psych: Patient is alert and oriented x3, she does not appear anxious or depressed, she does not appear agitated. I have reviewed aRdha Ballesteros's progress note including her medical assessment and plan of care and endorse it. Visit Charges Inpatient E&M: 78689 Subs Hosp L2
[2021-04-25] MEDS: 0.9% Saline Lock 10 ML Syringe IV (11:39)
[2021-04-25] MEDS: Albuterol 2.5 MG/3 ML VIAL.NEB. INHALATION ×2 (13:59→19:03)
[2021-04-25] MEDS: Budesonide Respules 0.5 MG/2 ML AMPUL.NEB. INHALATION (19:03)
[2021-04-25] MEDS: Montelukast 10 MG Tablet PO (21:45)
[2021-04-26] VITALS (7 sets, daily range): BP systolic 124–137; BP diastolic 64–74; PULSE 73–88; RESP 15–18; TEMP 36.7–36.9; O2SAT 92–97
[2021-04-26] MEDS: oxyCODONE 5 MG Tablet PO ×5 (03:54→21:01)
[2021-04-26] MEDS: Acetaminophen 325 MG Tablet 650 MG PO ×3 (03:55→21:01)
[2021-04-26] MEDS: Lactated Ringers 1,000 ML 100 ML IV (03:55)
[2021-04-26 06:35] LABS: Absolute Neutrophil Count 3.7 X10^3/uL (2.0-7.7); Basophil# 0.04 X10^3/uL; Basophil% 0.7 % (0-1); Eosinophil# 0.25 X10^3/uL; Eosinophils% 4.3 % (0-5); Hematocrit 35.1 % (37-47); Hemoglobin 11.3 g/dL (12.0-15.0); Mean Corp Hgb Conc 32.2 g/dL (32-36); Mean Corpuscular Hgb 30.2 pg (27.0-32.0); Mean Corpuscular Volume 93.9 fL (81-99); Mean Platelet Vol. 11.6 fl (6.2-12.0); Monocyte# 0.68 X10^3/uL; Monocyte% 11.7 % (0-10); NRBC Flagged by Analyzer 0 % (0-5); Neutrophil # 3.69 X10^3/uL (2.7-7.7); Neutrophil % 63.8 % (47-70); Platelet Count 210 K/mm3 (150-450); RBC Distribution Width CV 13.3 % (11.6-14.6); RBC Distribution Width SD 45.8 fl (35.1-43.9); Red Blood Count 3.74 M/mm3 (4.2-5.4); White Blood Count 5.8 K/mm3 (4.4-11.0)
[2021-04-26 06:56] LABS: Anion Gap 3 (5-15); BUN 10 mg/dL (7-18); BUN/Creat Ratio 20.1 RATIO (10-20); Calcium,Total 8.5 mg/dL (8.5-10.1); Chloride 103 mmol/L (98-107); EST Glomerular Filtration Rate 133 mL/min (>60); Est Glom Filt Rate - Afr Amer 160 mL/min (>60); Estimated Creatinine Clearance 84.65 ml/min; Glucose 95 mg/dL (74-106); Potassium 3.8 mmol/L (3.5-5.1); Sodium Level 139 mmol/L (136-145)
[2021-04-26] MEDS: Budesonide Respules 0.5 MG/2 ML AMPUL.NEB. INHALATION ×2 (07:20→20:05)
--- NOTE | 2021-04-26 07:34 | VDLE_ITS ---
Reason For Study: Pain Procedure LEFT This is a venous duplex using B-mode, color GSV is normal. flow and spectral Doppler. CFV is compressible, spontaneous, phasic, Exam performed portable in patient room. competent, and demonstrates normal A preliminary report was called and/or faxed augmentation. to [facility]. FV is compressible, spontaneous, phasic, competent and demonstrates normal augmentation. POP V is compressible, spontaneous, phasic, competent and demonstrates normal augmentation. T/P Trunk is compressible. PTV is compressible. LT PerV is compressible. VL/Venous Duplex US, Unilateral Interpretation Summary There is no evidence of left lower extremity deep vein thrombosis. Left great s aphenous vein appears patent and compressible segmentally. Ordering Physician: Sarbjit Del Valle Referring Physician: Karey Caceres Performed By: Nataliya Roa RVT
--- NOTE | 2021-04-26 07:35 | PCM.PROGNOTE ---
Subjective Subjective Patient was seen this morning for follow up on left foot/ankle. She relates pain is less and getting better. She is afebrile. She relates she slept well last night. She relates she does have some discomfort in calf where splint ends. She has no other complaints. Objective Data Objective Data Vital Signs: Vital Signs Temp Pulse Resp BP Pulse Ox 98.3 F 73 17 136/71 H 94 04/26/21 03:00 04/26/21 07:20 04/26/21 07:20 04/26/21 03:00 04/26/21 07:20 Oxygen Flow Rate (L/min) 1.5 Oxygen Delivery Method Nasal Cannula Weight: 96 kg Body Mass Index (BMI) 39.9 Intake & Output: Intake and Output for Last 24 Hours 04/24/21 04/25/21 04/26/21 23:59 23:59 23:59 Intake Total 3356.67 / 3856.67 2983.33 / 3333.33 1431.67 / 1431.67 Output Total 1600 / 2500 1700 / 2500 1700 / 1700 Balance 1756.67 / 1356.67 1283.33 / 833.33 -268.33 / -268.33 Lab / Micro Data Result Diagrams: 04/26/21 05:10 04/26/21 05:10 Labs: Laboratory Results - last 24 hr 04/26/21 05:10: WBC 5.8, RBC 3.74 L, Hgb 11.3 L, Hct 35.1 L, MCV 93.9, MCH 30.2, MCHC 32.2, RDW Std Deviation 45.8 H, RDW Coeff of Arie 13.3, Plt Count 210, MPV 11.6, Immature Gran % (Auto) 0.500, Neut % (Auto) 63.8, Lymph % (Auto) 19.0, [place] % (Auto) 11.7 H, Eos % (Auto) 4.3, Baso % (Auto) 0.7, Absolute Neuts (auto) 3.7, Absolute Lymphs (auto) 1.10, Nucleated RBC % 0 04/26/21 05:10: Sodium 139, Potassium 3.8, Chloride 103, Carbon Dioxide 33.0 H, Anion Gap 3 L, BUN 10, Creatinine 0.50 L, Estim Creat Clear Calc 84.65, Est GFR (MDRD) Af Amer 160, Est GFR (MDRD) Non-Af 133, BUN/Creatinine Ratio 20.1 H, Glucose 95, Calcium 8.5 Physical Exam Const alert, oriented x3 and no apparent distress Extremity Extremity Narrative: Left foot/ankle: Dressing/splint left foot/ankle/leg is clean, dry and intact, CFT < 2 seconds to all toes, No evidence of complications, Active range of motion all digits left foot, Epicritic sensation intact to all digits and dorsal foot, no suspicion of infection, there is some mild calf discomfort with calf squeeze. Assessment & Plan Assessment/Plan (1) Achilles tendinitis, left leg: (2) Calcaneal spur, left foot: (3) Plantar fascia syndrome: (4) Other injury of muscle(s) and tendon(s) of peroneal muscle group at lower leg level, left leg, subsequent encounter: PLAN: Patient is s/p surgery on left foot/ankle on 04/23/2021, she has been admitted for post operative management, pain control, and nursing placement. Her vitals are stable and she is afebrile. She does not demonstrate any leukocytosis. No weightbearing left foot. To keep working with PT/OT. Keep left foot elevated. Keep heel offloaded. To keep dressing and splint clean, dry and intact. A venous doppler of the left LE was ordered. Pain control: Acetaminophen, Oxyir, Dilaudid. DVT Prophylaxis - Lovenox daily. Recommend that patient will need nursing facility placement upon discharge. Social work consult for discharge planning and placement. Patient's other medical problems - medicine team was consulted, greatly appreciate assistance. Nutritional supplementation ordered to optimize post surgical healing. Please call with questions.
[2021-04-26] MEDS: hydroCHLOROthiazide 12.5mg 12.5 MG PO (07:57)
[2021-04-26] MEDS: Gabapentin 300 MG Capsule PO ×3 (07:57→21:02)
[2021-04-26] MEDS: Enoxaparin 40 MG/0.4 ML Syringe SC (07:57)
[2021-04-26] MEDS: guaiFENesin 1,200 MG Tablet 1200 MG PO ×2 (07:57→21:02)
[2021-04-26] MEDS: amLODIPine 10 MG Tablet PO (07:57)
[2021-04-26] MEDS: 0.9% Saline Lock 10 ML Syringe IV (07:57)
[2021-04-26] MEDS: Juven (unflavored) Packet 1 PACKET PO ×2 (07:58→16:18)
[2021-04-26] MEDS: HYDROmorphone 1 MG/ML Syringe IV (07:58)
--- NOTE | 2021-04-26 12:50 | CASEMGMT ---
Social Work Note SW updated that TCU has no beds available. SW in to speak with pt. SW introduced self and role at [facility]. SW updated pt that TCU has no beds available. SW also informed pt that [facility] is not taking admissions and [facility] has no beds available. Pt states well those were my other choices. After reviewing SNF list, pt states next choice is [facility] or [facility] TCU. SANDI placed a call to [facility] and spoke with Carine, [facility] is not accepting admissions at this time. SW received update that TCU may have a bed tomorrow for pt. SANDI updated physician. SANDI asked RN to update pt that TCU will likely have a bed for pt tomorrow. Plan: TCU tomorrow Nataliya Kinsey [employer] ELECT[employer]ICIAN, DIRECTOR SOCIAL SERVICE
--- NOTE | 2021-04-26 13:14 | PN.HOSP_ITS ---
Documented by User: Sergio REHMAN 04/26/21 13:23 Subjective Subjective Patient is a 66-year-old female comfortably resting in a chair, alert and orient x3. Patient denies development of any new symptoms overnight. Denies chest pain, shortness of breath, palpitations, hemoptysis, sputum production, fever, chills, N/V/D. Does not appear in acute distress. Objective Data Objective Data Vital Signs: Vital Signs Temp Pulse Resp BP Pulse Ox 98.1 F 79 15 131/74 H 94 04/26/21 07:49 04/26/21 07:49 04/26/21 07:49 04/26/21 07:49 04/26/21 10:16 Oxygen Flow Rate (L/min) 2 Oxygen Delivery Method Nasal Cannula Weight: 211 lb 10.3 oz Body Mass Index (BMI) 39.9 Intake & Output: Intake and Output for Last 24 Hours 04/24/21 04/25/21 04/26/21 23:59 23:59 23:59 Intake Total 3356.67 / 3856.67 2983.33 / 3333.33 1431.67 / 1431.67 Output Total 1600 / 2500 1700 / 2500 1700 / 1700 Balance 1756.67 / 1356.67 1283.33 / 833.33 -268.33 / -268.33 Lab / Micro Data Result Diagrams: 04/26/21 05:10 04/26/21 05:10 Labs: Laboratory Results - last 24 hr 04/26/21 05:10: WBC 5.8, RBC 3.74 L, Hgb 11.3 L, Hct 35.1 L, MCV 93.9, MCH 30.2, MCHC 32.2, RDW Std Deviation 45.8 H, RDW Coeff of Arie 13.3, Plt Count 210, MPV 11.6, Immature Gran % (Auto) 0.500, Neut % (Auto) 63.8, Lymph % (Auto) 19.0, [place] % (Auto) 11.7 H, Eos % (Auto) 4.3, Baso % (Auto) 0.7, Absolute Neuts (auto) 3.7, Absolute Lymphs (auto) 1.10, Nucleated RBC % 0 04/26/21 05:10: Sodium 139, Potassium 3.8, Chloride 103, Carbon Dioxide 33.0 H, Anion Gap 3 L, BUN 10, Creatinine 0.50 L, Estim Creat Clear Calc 84.65, Est GFR (MDRD) Af Amer 160, Est GFR (MDRD) Non-Af 133, BUN/Creatinine Ratio 20.1 H, Glucose 95, Calcium 8.5 Physical Exam Const alert, oriented x3 and no apparent distress HEENT head/scalp atraumatic and moist oral mucous membranes Head and Scalp: normocephalic Eyes PERRL, EOMs intact bilaterally and conjunctivae normal Neck no lymphadenopathy, supple and no JVD Resp normal respiratory effort, no retractions and no use of accessory muscles Cardio regular rate, regular rhythm, no murmurs and no JVD GI normal to inspection, nondistended, normoactive bowel sounds, soft to palpation and non-tender Extremity normal to inspection, full ROM and no clubbing, cyanosis or edema Skin Skin Narrative: Left lower extremity is appropriately wrapped in Ran bandaging. Right lower extremity was unremarkable. Neuro CN's II-XII intact bilaterally Psych affect normal Assessment & Plan Assessment/Plan (1) Asthma with COPD with exacerbation: (2) Hypertension: (3) dyslipidemia: PLAN: Patient is a 66-year-old female who presents to the hospital medicine service on consult from podiatry who underwent Achilles tendon repair and is currently awaiting placement to SNF. 1) Asthma with COPD Continue home regimen of Qvar, ProAir, Mucinex. Continue O2 as needed. 2) Hypertension Stable, continue home amlodipine and hydrochlorothiazide. 3) Hyperlipidemia Continue simvastatin 4) Allergic rhinitis -Continue home medication regimen including Singulair, azelastine nasal spray, fluticasone 5) Debride and repair detach and reattach of Achilles tendon left Management per podiatry. Surgery completed 04/23/2021. Patient has been cleared for discharge although is currently awaiting a bed at [facility]. Potential discharge on 04/27/2021. Patient seen by Sergio Keenan PA-C, under the supervision of Dr. Luu. Documented by User: Dr. Gato Luu MD 04/26/21 15:52 Objective Data Lab / Micro Data Result Diagrams: 04/26/21 05:10 04/26/21 05:10 Charges/Coding Addendum Addendum: Dr. Luu: I personally reviewed the chart and examined the patient, and agree with the above findings. 66-year-old female admitted by podiatry from pain control after surgery for an Achilles tendinitis calcaneal spur and plantar fasciitis. She had surgery on 04/23/2021. [facility], discontinued her Dilaudid today and place her on just oral narcotics. PT/OT for evaluation and treatment. Other than adjustment of her for pain control there has not been any major medical intervention at this time therefore will sign off and follow peripherally. I would anticipate continuation all of her home medications on discharge. Visit Charges Inpatient E&M: 88998 Subs Hosp L2
[2021-04-26] MEDS: Montelukast 10 MG Tablet PO (21:01)
[2021-04-26] MEDS: Senna/Docusate Sodium 1 Tablet 2 TABLET PO (21:01)
[2021-04-26] MEDS: Azelastine HCl NASAL.SRY 1 SPRAY NASAL (21:02)
[2021-04-27] VITALS (7 sets, daily range): BP systolic 128–134; BP diastolic 67–71; PULSE 83–88; RESP 16–18; TEMP 36.7–37.1; O2SAT 88–96
[2021-04-27] MEDS: oxyCODONE 5 MG Tablet PO ×3 (02:23→16:06)
[2021-04-27 06:36] LABS: Absolute Lymphocyte Count 1.14 X10^3/uL (0.83-4.51); Absolute Neutrophil Count 3.6 X10^3/uL (2.0-7.7); Basophil# 0.04 X10^3/uL; Basophil% 0.7 % (0-1); Eosinophil# 0.44 X10^3/uL; Eosinophils% 7.5 % (0-5); Hematocrit 36.8 % (37-47); Hemoglobin 11.8 g/dL (12.0-15.0); Lymphocyte # 1.14 X10^3/ul (0.83-4.51); Lymphocyte % 19.5 % (19-41); Mean Corp Hgb Conc 32.1 g/dL (32-36); Mean Corpuscular Hgb 29.4 pg (27.0-32.0); Mean Corpuscular Volume 91.8 fL (81-99); Monocyte# 0.57 X10^3/uL; Monocyte% 9.7 % (0-10); NRBC Flagged by Analyzer 0 % (0-5); Neutrophil # 3.61 X10^3/uL (2.7-7.7); Neutrophil % 61.7 % (47-70); Platelet Count 238 K/mm3 (150-450); RBC Distribution Width CV 13.4 % (11.6-14.6); RBC Distribution Width SD 46.1 fl (35.1-43.9); Red Blood Count 4.01 M/mm3 (4.2-5.4); White Blood Count 5.9 K/mm3 (4.4-11.0)
[2021-04-27 07:02] LABS: Anion Gap 7 (5-15); BUN 15 mg/dL (7-18); BUN/Creat Ratio 26.2 RATIO (10-20); Calcium,Total 8.8 mg/dL (8.5-10.1); Chloride 101 mmol/L (98-107); Creatinine, Serum 0.57 mg/dL (0.55-1.02); EST Glomerular Filtration Rate 112 mL/min (>60); Est Glom Filt Rate - Afr Amer 136 mL/min (>60); Estimated Creatinine Clearance 74.25 ml/min; Glucose 97 mg/dL (74-106); Potassium 3.9 mmol/L (3.5-5.1); Sodium Level 138 mmol/L (136-145)
--- NOTE | 2021-04-27 07:08 | VDLE_ITS ---
Reason For Study: pain RIGHT GSV is normal. CFV is compressible, spontaneous, phasic, competent and demonstrates normal augmentation. FV is compressible, spontaneous, phasic, competent and demonstrates normal augmentation. POP V is compressible, spontaneous, phasic, competent and demonstrates normal augmentation. T/P Trunk is compressible. PTV is compressible. RT PerV is compressible. Soleus V is dilated and noncompressible. Procedure This is a venous duplex using B-mode, color flow and spectral Doppler. Exam performed portable in patient room. The exam was abbreviated due to the COVID 19 protocol. The exam was diagnostic. A preliminary report was called and/or faxed to [facility]. VL/Venous Duplex US, Unilateral Interpretation Summary Acute deep venous thrombosis right soleus vein. Patent and compressible right great saphenous vein Abbreviated COVID-19 protocol utilized Ordering Physician: Sarbjit Del Valle Performed By: Obdulio Youngblood RVT
--- NOTE | 2021-04-27 07:12 | PN_ITS ---
Subjective Subjective Patient was seen this morning for follow up on left foot/ankle, she relates she feels improvement everyday. She now relates to some pain in right calf since yesterday. She is resting comfortably in bed, no fever, chills, nausea or vomiting. Objective Data Objective Data Vital Signs: Vital Signs Temp Pulse Resp BP Pulse Ox 98.7 F 83 16 128/71 H 92 04/27/21 02:00 04/27/21 02:00 04/27/21 02:00 04/27/21 02:00 04/27/21 02:00 Oxygen Flow Rate (L/min) 2 Oxygen Delivery Method Nasal Cannula Weight: 96 kg Body Mass Index (BMI) 39.9 Intake & Output: Intake and Output for Last 24 Hours 04/25/21 04/26/21 04/27/21 23:59 23:59 23:59 Intake Total 2983.33 / 3333.33 2431.67 / 2551.67 220 / 220 Output Total 1700 / 2500 2200 / 2350 1550 / 1550 Balance 1283.33 / 833.33 231.67 / 201.67 -1330 / -1330 Lab / Micro Data Result Diagrams: 04/27/21 06:02 04/27/21 06:02 Labs: Laboratory Results - last 24 hr 04/27/21 06:02: WBC 5.9, RBC 4.01 L, Hgb 11.8 L, Hct 36.8 L, MCV 91.8, MCH 29.4, MCHC 32.1, RDW Std Deviation 46.1 H, RDW Coeff of Arie 13.4, Plt Count 238, MPV 11.0, Immature Gran % (Auto) 0.900, Neut % (Auto) 61.7, Lymph % (Auto) 19.5, [place] % (Auto) 9.7, Eos % (Auto) 7.5 H, Baso % (Auto) 0.7, Absolute Neuts (auto) 3.6, Absolute Lymphs (auto) 1.14, Nucleated RBC % 0 04/27/21 06:02: Sodium 138, Potassium 3.9, Chloride 101, Carbon Dioxide 30.0, Anion Gap 7, BUN 15, Creatinine 0.57, Estim Creat Clear Calc 74.25, Est GFR (MDRD) Af Amer 136, Est GFR (MDRD) Non-Af 112, BUN/Creatinine Ratio 26.2 H, Glucose 97, Calcium 8.8 Radiography Diagnostic Testing: Radiology Impression Venous Doppler Study 04/26/21 07:34 Interpretation Summary There is no evidence of left lower extremity deep vein thrombosis. Left great saphenous vein appears patent and compressible segmentally. Ordering Physician: Sarbjit Del Valle Referring Physician: Karey Caceres Performed By: Nataliya Roa RV[place] Physical Exam Const alert, oriented x3 and no apparent distress Extremity Extremity Narrative: Left foot/ankle: Dressing/splint left foot/ankle/leg is clean, dry and intact, CFT < 2 seconds to all toes, No evidence of complications, Active range of motion all digits left foot, Epicritic sensation intact to all digits and dorsal foot, no suspicion of infection. There is some mild right calf discomfort with calf squeeze. Assessment & Plan Assessment/Plan (1) Achilles tendinitis, left leg: (2) Calcaneal spur, left foot: (3) Plantar fascia syndrome: (4) Other injury of muscle(s) and tendon(s) of peroneal muscle group at lower leg level, left leg, subsequent encounter: PLAN: Patient is s/p surgery on left foot/ankle on 04/23/2021, she has been admitted for post operative management, pain control, and nursing placement. Her vitals are stable and she is afebrile. WBC normal - no suspici ous for infection. No weightbearing left foot. To keep working with PT/OT. Keep left foot elevate d. Keep heel offloaded. To keep dressing and splint clean, dry and intact. A venous doppler of the left LE was ordered - was reviewed and was negative for DVT. She relates to some right calf pain - a right LE venous doppler was ordered. Pain control: Acetaminophen, and Oxyir DVT Prophylaxis - Lovenox daily. Recommend that patient will need nursing facility placement upon discharge. Social work consult for discharge planning and placement. Patient's other medical problems - medicine team was consulted, greatly appreciate assistance. Nutritional supplementation ordered to optimize post surgical healing. Please call with questions.
[2021-04-27] MEDS: Budesonide Respules 0.5 MG/2 ML AMPUL.NEB. INHALATION (07:33)
[2021-04-27] MEDS: Juven (unflavored) Packet 1 PACKET PO ×2 (08:01→16:06)
[2021-04-27] MEDS: Enoxaparin 40 MG/0.4 ML Syringe SC (08:01)
[2021-04-27] MEDS: amLODIPine 10 MG Tablet PO (08:01)
[2021-04-27] MEDS: guaiFENesin 1,200 MG Tablet 1200 MG PO (08:01)
[2021-04-27] MEDS: hydroCHLOROthiazide 12.5mg 12.5 MG PO (08:01)
[2021-04-27] MEDS: Senna/Docusate Sodium 1 Tablet 2 TABLET PO (08:07)
[2021-04-27] MEDS: Acetaminophen 325 MG Tablet 650 MG PO (12:08)
[2021-04-27] MEDS: APIXABAN 5 MG TABLET 10 MG PO (12:08)
[2021-04-27] MEDS: Gabapentin 300 MG Capsule PO (12:08)
--- NOTE | 2021-04-27 15:05 | CASEMGMT ---
Social Work Note TCU is able to accept pt today. SW in to speak with pt. Pt's son present in room. Pt gave this worker permission to speak to her in front of her guest. SW informed pt that she can discharge to TCU today. Pt states understanding. SW updated physician. Plan: TCU today Nataliya Kinsey SOFTWARE TESTER, BANDER HAND
--- NOTE | 2021-04-27 15:46 | PCM.TXEXTCAR ---
Diet 04/26/21 14:30 Diet: Cardiac - Heart Healthy Food consistency:: Regular Liquid Consistency:: Regular/Thin Is pt able to select menu?: Yes Wound(s) leg ankle: Wound Type: Surgical Incision Dressing Change: Leave splint/dressing clean, dry and intact left lower extremity Therapies Weight Bearing: Non weight bearing Problem/Diagnosis (1) Achilles tendinitis, left leg: Status: Acute Comment: Keep left foot elevated with pillows at all times. Keep left heel offloaded. (2) Calcaneal spur, left foot: Status: Acute (3) Plantar fascia syndrome: Status: Acute (4) Other injury of muscle(s) and tendon(s) of peroneal muscle group at lower leg level, left leg, subsequent encounter: Status: Acute Allergies/Procedures Done in Hospital Allergies levofloxacin [From Levaquin] Allergy (Verified 04/02/21 11:07) Rash Sulfa (Sulfonamide Antibiotics) Allergy (Verified 04/23/21 09:15) itching as a child had reaction as a child Type of Care/Length of Stay Estimated LOS: Convalescent Care Less Than 30 days Type of Care Needed: Skilled Rehab Potential: Good Prognosis: Good Additional Orders/Day of Discharge Day of Discharge: 04/27/21 Dietary and Speech Recommendations Dietitian Recommendations/Changes: Will change diet to Cardiac. Will continue Andres BID for wound healing. Discharge Plan Admission Admit Date/Time: 04/23/21 13:18 Attending Provider: aGto Luu Primary Care Provider: Karey Caceres Consulting Providers: Valente Neville ; Herb Aguiar ; Arabella Bydr ; Anne Law NP ; Rell Singh NP ; Susan Craven ; Rell Wagner Discharge Orders/Prescriptions Prescriptions: New hydrocodone-acetaminophen 5-325 mg tablet 1 - 2 tab PO Q6H PRN (Reason: pain) 4 Days Qty: 20 RF: 0 Eliquis 5 mg Tablet 10 mg PO BID Qty: 20 RF: 0 Continued albuterol sulfate 2.5 mg /3 mL (0.083 %) solution for nebulization 2.5 mg INHALATION Q4H PRN (Reason: shortness of breath or wheezing) Qty: 180 RF: 6 azelastine 137 mcg (0.1 %) aerosol,spray 1 spray INTRANASAL BID Qty: 30 RF: 6 Qvar RediHaler 80 mcg/actuation HFA aerosol breath activated 2 inh inhalation Q12H Qty: 10.6 RF: 6 montelukast [Singulair] 10 mg tablet 10 mg PO QPM Qty: 30 RF: 6 fluticasone propionate 50 mcg/actuation spray,suspension 2 spray intranasal DAILY Qty: 16 RF: 3 amlodipine 10 MG tablet 10 mg PO DAILY RF: 0 hydrochlorothiazide 12.5 MG capsule 12.5 mg PO DAILY RF: 0 gabapentin 300 MG capsule 300 mg PO TID PRN PRN (Reason: Pain) RF: 0 guaifenesin 1,200 MG tablet 1,200 mg PO BID Qty: 14 RF: 0 Discontinued meloxicam 15 MG tablet 15 mg PO DAILY RF: 0 No Action (DME) oxygen-air delivery systems Device MISCELLANEOUS RF: 0 Referrals / Follow Up: Karey Caceres MD [Primary Care Provider] -
--- NOTE | 2021-04-27 15:47 | PCM.DC ---
Discharge Instructions Activity Weight Bearing Status: No weight bearing (No weightbearing left foot.) Keep extremity elevated above heart level: Left Leg (Keep left foot elevated at all times.) Dressing / Incision Call your doctor if your incision/area has: Continuous Slow Oozing, Sudden Increased Bleeding and Foul Smelling Discharge Call your doctor if you observe: Fever of 101 or Higher, Shortness of breath, Chest pain, Calf discomfort and Uncontrolled pain Change Dressing in: do not change dressing Remove Dressing in: leave in place till F/U Cleanse incision/area with: Keep Dressing Clean & Dry Follow Up Care Test Results: Test results from this visit will be discussed in further detail at your follow-up appointment, if applicable. Discharge Plan Admission Admit Date/Time: 04/23/21 13:18 Attending Provider: Gato Luu Primary Care Provider: Karey Caceres Consulting Providers: Valente Neville ; Herb Aguiar ; Arabella Byrd ; Anne Law INSULATION BOARD BACK TENDER ; Rell Singh INSULATION BOARD BACK TENDER ; Susan Craven ; Rell Wagner Discharge Orders/Prescriptions Prescriptions: New hydrocodone-acetaminophen 5-325 mg tablet 1 - 2 tab PO Q6H PRN (Reason: pain) 4 Days Qty: 20 RF: 0 Eliquis 5 mg Tablet 10 mg PO BID Qty: 20 RF: 0 Continued albuterol sulfate 2.5 mg /3 mL (0.083 %) solution for nebulization 2.5 mg INHALATION Q4H PRN (Reason: shortness of breath or wheezing) Qty: 180 RF: 6 azelastine 137 mcg (0.1 %) aerosol,spray 1 spray INTRANASAL BID Qty: 30 RF: 6 Qvar RediHaler 80 mcg/actuation HFA aerosol breath activated 2 inh inhalation Q12H Qty: 10.6 RF: 6 montelukast [Singulair] 10 mg tablet 10 mg PO QPM Qty: 30 RF: 6 fluticasone propionate 50 mcg/actuation spray,suspension 2 spray intranasal DAILY Qty: 16 RF: 3 amlodipine 10 MG tablet 10 mg PO DAILY RF: 0 hydrochlorothiazide 12.5 MG capsule 12.5 mg PO DAILY RF: 0 gabapentin 300 MG capsule 300 mg PO TID PRN PRN (Reason: Pain) RF: 0 guaifenesin 1,200 MG tablet 1,200 mg PO BID Qty: 14 RF: 0 Discontinued meloxicam 15 MG tablet 15 mg PO DAILY RF: 0 No Action (DME) oxygen-air delivery systems Device MISCELLANEOUS RF: 0 Referrals / Follow Up: Karey Caceres MD [Primary Care Provider] -
--- NOTE | 2021-04-27 15:48 | DS.PCM_ITS ---
Providers Date of Admission: 04/23/21 Primary Care Physician: Dr. Karey Caceres MD Consultations 04/23/21 13:22 Consult: Hospitalist Routine Consulting Provider: [facility] Reason for Consult: diabetes, and other medical problems EMERGENT Consult: No MD Notified: Yes Date Notified: 04/23/21 Time Notified: 13:23 Method of Notification: Page 04/23/21 19:30 Consult: Hospitalist Routine Consulting Provider: Rell Wagner Reason for Consult: medical management EMERGENT Consult: No Notified: Yes Date Notified: 04/23/21 Time Notified: 19:31 Method of Notification: Verbal Comments:: per Dr Fragoso's request, consult was corrected on orders Reason For Visit: DEBRIDE REPAIR DETACH AND REATTACH ACHILLEN TENDON Diagnosis Discharge Diagnosis (1) Achilles tendinitis, left leg: Status: Acute Code(s): M76.62 - Achilles tendinitis, left leg (2) Calcaneal spur, left foot: Status: Acute Code(s): M77.32 - Calcaneal spur, left foot (3) Plantar fascia syndrome: Status: Acute Code(s): M72.2 - Plantar fascial fibromatosis (4) Other injury of muscle(s) and tendon(s) of peroneal muscle group at lower leg level, left leg, subsequent encounter: Status: Acute Code(s): S86.392D - Other injury of muscle(s) and tendon(s) of peroneal muscle group at lower leg level, left leg, subsequent encounter Medications at Discharge Home Medications amlodipine 10 mg PO DAILY 09/25/18 gabapentin 300 mg PO TID PRN PRN 09/25/18 hydrochlorothiazide 12.5 mg PO DAILY 09/25/18 guaifenesin 1,200 mg PO BID #14 tab 09/28/18 albuterol sulfate 2.5 mg INHALATION Q4H PRN #180 ml 11/16/20 azelastine 137 mcg (0.1 %) nasal spray aerosol 1 spray INTRANASAL BID #30 ml 11/16/20 beclomethasone dipropionate 80 mcg/actuation HFA breath activated aerosol 2 inh INHALATION Q12H #10.6 g 11/16/20 fluticasone propionate 50 mcg/actuation nasal spray,suspension 2 spray INTRANASAL DAILY #16 g 11/16/20 montelukast 10 mg tablet 10 mg PO QPM #30 tab 11/16/20 oxygen-air delivery systems 04/02/21 apixaban [Eliquis] 10 mg PO BID #20 tab 04/27/21 hydrocodone-acetaminophen 1 - 2 tab PO Q6H PRN 4 Days #20 tab 04/27/21 Hospital Course Operations - (Left peroneus brevis tendon debridement and repair, resection of calcaneal spurs, plantar fasciotomy, achilles tendon debridement, detach and reattch achilles tendon) Summary of Care Provided Hospital Course: Patient underwent left foot/ankle surgery on 04/23/2021 with planned admission for monitoring, pain control and nursing facility placement. Patient did well post op but she did relate to right calf pain this morning, venous doppler was ordered and was positive for LE soleus vein dvt. I spoke with medicine team and it was recommended for patient to start eliquis 10mg PO BID for 7 days and then go to 5mg PO BID thereafter. Patient is going to TCU today. Physical Exam Narrative See progress note from today 04/27/2021 for exam findings Weight / BMI Weight Weight: 96 kg Body Mass Index (BMI) 39.9 ABG / Lab / Microbiology Data Result Diagrams: 04/27/21 06:02 04/27/21 06:02 Laboratory: Laboratory Results - last 24 hr 04/27/21 06:02: WBC 5.9, RBC 4.01 L, Hgb 11.8 L, Hct 36.8 L, MCV 91.8, MCH 29.4, MCHC 32.1, RDW Std Deviation 46.1 H, RDW Coeff of Arie 13.4, Plt Count 238, MPV 11.0, Immature Gran % (Auto) 0.900, Neut % (Auto) 61.7, Lymph % (Auto) 19.5, [place] % (Auto) 9.7, Eos % (Auto) 7.5 H, Baso % (Auto) 0.7, Absolute Neuts (auto) 3.6, Absolute Lymphs (auto) 1.14, Nucleated RBC % 0 04/27/21 06:02: Sodium 138, Potassium 3.9, Chloride 101, Carbon Dioxide 30.0, Anion Gap 7, BUN 15, Creatinine 0.57, Estim Creat Clear Calc 74.25, Est GFR (MDRD) Af Amer 136, Est GFR (MDRD) Non-Af 112, BUN/Creatinine Ratio 26.2 H, Glucose 97, Calcium 8.8 Radiography Diagnostic Testing: Radiology Impression Venous Doppler Study 04/26/21 07:34 Interpretation Summary There is no evidence of left lower extremity deep vein thrombosis. Left great saphenous vein appears patent and compressible segmentally. Ordering Physician: Sarbjit Del Valle Referring Physician: Karey Caceres Performed By: Nataliya Roa RVT Venous Doppler Study 04/27/21 07:08 Interpretation Summary Acute deep venous thrombosis right soleus vein. Patent and compressible right great saphenous vein Abbreviated COVID-19 protocol utilized Ordering Physician: Sarbjit Del Valle Performed By: Obdulio Youngblood RVT D/C Instructions Weight Bearing Status: No weight bearing (No weightbearing left foot.) Keep extremity elevated above heart level: Left Leg (Keep left foot elevated at all times.) Call your doctor if your incision/area has: Continuous Slow Oozing, Sudden Increased Bleeding and Foul Smelling Discharge Call your doctor if you observe: Fever of 101 or Higher, Shortness of breath, Chest pain, Calf discomfort and Uncontrolled pain Cleanse incision/area with: Keep Dressing Clean & Dry Meaningful Use Info Meaningful Use Diagnoses (Choose all that apply): None applicable Discharge Plan Admission Admit Date/Time: 04/23/21 13:18 Attending Provider: Gato Luu Primary Care Provider: Karey Caceres Consulting Providers: Valente Neville ; Herb Aguiar ; Arabella Byrd ; Anne Law CLERICAL GRADER ; Rell Singh CLERICAL GRADER ; Susan Craven ; Rell Wagner Discharge Orders/Prescriptions Prescriptions: New hydrocodone-acetaminophen 5-325 mg tablet 1 - 2 tab PO Q6H PRN (Reason: pain) 4 Days Qty: 20 RF: 0 Eliquis 5 mg Tablet 10 mg PO BID Qty: 20 RF: 0 Continued albuterol sulfate 2.5 mg /3 mL (0.083 %) solution for nebulization 2.5 mg INHALATION Q4H PRN (Reason: shortness of breath or wheezing) Qty: 180 RF: 6 azelastine 137 mcg (0.1 %) aerosol,spray 1 spray INTRANASAL BID Qty: 30 RF: 6 Qvar RediHaler 80 mcg/actuation HFA aerosol breath activated 2 inh inhalation Q12H Qty: 10.6 RF: 6 montelukast [Singulair] 10 mg tablet 10 mg PO QPM Qty: 30 RF: 6 fluticasone propionate 50 mcg/actuation spray,suspension 2 spray intranasal DAILY Qty: 16 RF: 3 amlodipine 10 MG tablet 10 mg PO DAILY RF: 0 hydrochlorothiazide 12.5 MG capsule 12.5 mg PO DAILY RF: 0 gabapentin 300 MG capsule 300 mg PO TID PRN PRN (Reason: Pain) RF: 0 guaifenesin 1,200 MG tablet 1,200 mg PO BID Qty: 14 RF: 0 Discontinued meloxicam 15 MG tablet 15 mg PO DAILY RF: 0 No Action (DME) oxygen-air delivery systems Device MISCELLANEOUS RF: 0 Referrals / Follow Up: Karey Caceres MD [Primary Care Provider] -
== END 2021-04-27 18:30 | DRG 941 ==
LOC: SDC 13:30 → MS2 13:30 → MS3 14:47
PROVIDERS: Nurse Practitioner Family; Admitting Provider Podiatrist; PCP Internal Medicine; Referring Provider Podiatrist; Visit Provider Family Medicine
PROC: 0QBM0ZZ Excision of Left Tarsal, Open Approach (ICD-10-PCS; CPT 28899; principal; 2021-04-23 10:15)
DX: G89.18 Other acute postprocedural pain (principal); M76.62 Achilles tendinitis, left leg; G89.29 Other chronic pain; M77.32 Calcaneal spur, left foot; M72.2 Plantar fascial fibromatosis; S86.319A Strain of muscle(s) and tendon(s) of peroneal muscle group at lower leg level, unspecified leg, initial encounter; I82.462 Acute embolism and thrombosis of left calf muscular vein; Z20.822 Contact with and (suspected) exposure to COVID-19; J44.9 Chronic obstructive pulmonary disease, unspecified; I10 Essential (primary) hypertension; E78.5 Hyperlipidemia, unspecified; M19.90 Unspecified osteoarthritis, unspecified site; F32.A Depression, unspecified; F41.9 Anxiety disorder, unspecified; Z99.81 Dependence on supplemental oxygen; Z79.1 Long term (current) use of non-steroidal anti-inflammatories (NSAID); Z79.899 Other long term (current) drug therapy; Z87.891 Personal history of nicotine dependence
CPT/HCPCS: 36415; 73620; 73650; 76000; 80048; 83036; 85025; 87426; 88304; 93971; 94640; 97110; 97116; 97162; 97166; 97530; 97535; 99251; J7120; A4216; G0463; J2405

== ENCOUNTER 2021-04-27 18:30 | Inpatient (IN) | payer MEDICARE, BC, SELFPAY ==
[2021-04-27 19:30] VITALS: PULSE 85; RESP 14; O2SAT 94
[2021-04-27 20:06] VITALS: BP 140/71; PULSE 86; RESP 14; TEMP 36.7; O2SAT 94
--- NOTE | 2021-04-27 20:15 | HP.PCM_ITS ---
HPI - General General Date of Admission: 04/27/21 HPI Narrative 04/23/2021 MARY STARK, is a 66 Female who presents with followin04/23/2021 Dr. Del Valle performed Achilles tendon surgery, left heel spur surgery, left plantar fasciotomy. 04/24/2021 Pain 6/10. Consider [facility]. Non-weight bearing to left lower extremity. Tylenol, Oxycodone, Dilaudid for pain control. 04/24/2021 Oxygen 3 liters per nasal cannula at night. 04/25/2021 Pain after dressing change. PT/OT for [facility]. 04/26/2021 Await Discharge to TCU. 04/27/2021 Doppler ultrasound right lower extremity positive DVT. Eliquis 10mg twice daily x 7 days, then 5mg twice daily thru 07/28/2021. 04/27/2021 Admit to TCU with debility, here for rehabilitation, strengthening, prior to discharge home with . [facility] Medical History dyslipidemia Anxiety Arthritis Asthma Asthma with COPD with exacerbation Back pain Chronic cough COPD exacerbation Degenerative joint disease Depression Former smoker High cholesterol History of edema History of pain when walking Hypertension Hypertension Left acute otitis media Leg cramps Migraine headache On home oxygen therapy Wears dentures Wears glasses Home Medications amlodipine 10 mg PO DAILY 09/25/18 [History Last Taken 04/23/21] gabapentin 300 mg PO TID PRN PRN 09/25/18 [History Last Taken 04/22/21] hydrochlorothiazide 12.5 mg PO DAILY 09/25/18 [History Last Taken 04/22/21] albuterol sulfate 2.5 mg INHALATION Q4H PRN #180 ml 11/16/20 [Rx Last Taken 04/22/21] oxygen-air delivery systems 04/02/21 [History Last Taken 04/22/21] Qvar RediHaler 2 inh INHALATION Q12H 04/27/21 [History Last Taken Unknown] apixaban [Eliquis] 10 mg PO BID 04/27/21 [History Last Taken Unknown] azelastine 1 spray INTRANASAL BID 04/27/21 [History Last Taken Unknown] fluticasone propionate 2 spray INTRANASAL DAILY 04/27/21 [History Last Taken Unknown] guaifenesin 1,200 mg PO BID 04/27/21 [History Last Taken Unknown] hydrocodone-acetaminophen 1 - 2 tab PO Q6H PRN 4 Days #20 tab 04/27/21 [Rx Last Taken Unknown] montelukast [Singulair] 10 mg PO QPM 04/27/21 [History Last Taken Unknown] Allergy/AdvReac Type Severity Reaction Status Date / Time levofloxacin [From Levaquin] Allergy Rash Verified 04/02/21 11:07 Sulfa (Sulfonamide Allergy itching as Verified 04/23/21 09:15 Antibiotics) a child Surgical History Hx laparoscopic cholecystectomy Hx of colonoscopy Hx of tubal ligation Social History (Updated 04/27/21 @ 20:[address] Francesco Leonard MD) household members: spouse Smoking Status: Former smoker Tobacco: How many years used: 4 how long ago did patient quit smokin, 0.25ppd second hand exposure: Yes alcohol intake: current alcohol intake frequency: a few times a month Alcohol type: wine details: 1-2 glasses of wine per month. ROS Constitutional Constitutional: Denies chills, fever(s) or weight gain ENT HEENT: Denies headache(s), nasal congestion or nasal discharge Cardiovascular Cardiovascular: Denies chest pain or palpitations Respiratory/Chest Respiratory/Chest: Denies cough, excessive phlegm production or shortness of breath with exertion Gastrointestinal Gastrointestinal: Denies abdominal pain, nausea or vomiting Genitourinary Genitourinary: Denies dysuria Musculoskeletal Musculoskeletal: Denies joint pain or joint swelling Integumentary Integumentary: Denies rash or wounds Neurologic Neurologic: Denies focal weakness, numbness or tingling Psychiatric Psychiatric: Denies anxiety, depression, homicidal ideation or suicidal ideation Physical Exam Const alert and oriented x3 General Appearance: cooperative HEENT normocephalic Eyes PERRL and EOMs intact bilaterally Neck supple, no JVD and no carotid bruits Resp normal respiratory effort, normal air movement and clear to auscultation bilaterally Cardio regular rate and regular rhythm GI normal to inspection, nondistended, normoactive bowel sounds, non-tender and non-distended Extremity normal capillary refill Extremity Narrative: Left lower extremity splint, ELENA wrap. General Extremity: Negative for edema Skin no rashes or lesions noted General Skin Exam: no breakdown Psych affect normal Appearance: appropriate Results Lab / Micro Data Result Diagrams: 04/28/21 05:37 04/28/21 05:37 Assessment & Plan Assessment/Plan (1) Debility: (2) Left Achilles tendinitis: (3) Plantar fasciitis, left: (4) Deep vein thrombosis, lower right extremity: (5) Chronic obstructive pulmonary disease: (6) Hypertension: (7) Osteoarthritis: (8) Hyperlipidemia: (9) Neuropathic pain: PLAN: 66 year old female with below past medical history underwent left achilles tendon, heel spur, plantar fasciotomy 04/23/[address]-operative course complicated by right lower extremity DVT, admitted to TCU with debility, here for rehabilitation, strengthening, prior to discharge home with . * Debility - PT/OT. * Pain - Tylenol 1000mg q6h prn pain (1-3), Oxycodone 5mg q4h prn pain (4-10). * Bowel - Miralax 17gm daily, Senna/colace 1 tablet twice daily, Dulcolax 10mg daily prn. * Adult immunization - Administer prevnar 13, pneumovax 23, fluzone, covid19 vaccine as appropriate. * DVT prophylaxis - Not necessary, already on Eliquis. * COPD - Qvar 2 inhalations Q12H, Albuterol 2.5mg q4h prn. * Acute DVT right lower extremity - Eliquis 10mg twice daily x 7 days, then 5mg twice daily thru 07/28/2021. * Hypetension - Amlodipine 10mg daily, HCTZ 12.5mg daily. * Allergic rhinitis - Astelin 1 spray nasal twice daily, Flonase 1 spray nasal daily, Singulair 10mg daily. * Neuropathic pain - Gabapentin 300mg tid prn. * Congestion - Mucinex 1200mg twice daily.
[2021-04-27] MEDS: APIXABAN 5 MG TABLET 10 MG PO (22:01)
[2021-04-27] MEDS: Montelukast 10 MG Tablet PO (22:01)
[2021-04-27] MEDS: oxyCODONE 5 MG Tablet PO (22:03)
[2021-04-28] MEDS: oxyCODONE 5 MG Tablet PO ×4 (03:27→20:36)
[2021-04-28] MEDS: Azelastine HCl NASAL.SRY 1 SPRAY NASAL ×2 (05:33→17:18)
[2021-04-28] MEDS: Menthol/Lanolin/Calamine/Znox 113 GM Tube 1 APPLIC TOPICAL ×2 (05:35→17:20)
[2021-04-28] MEDS: APIXABAN 5 MG TABLET 10 MG PO ×2 (05:36→17:17)
[2021-04-28] MEDS: Polyethylene Glycol 3350 17 GM PACKET PO (05:36)
[2021-04-28] MEDS: amLODIPine 10 MG Tablet PO (05:37)
[2021-04-28] MEDS: Fluticasone 0.05% 1 SPRAY NASAL.SRY 2 SPRAY NASAL (05:37)
[2021-04-28] MEDS: guaiFENesin 1,200 MG Tablet 1200 MG PO ×2 (05:37→17:16)
[2021-04-28] MEDS: hydroCHLOROthiazide 12.5mg 12.5 MG PO (05:37)
[2021-04-28] MEDS: Senna/Docusate Sodium 1 Tablet PO ×2 (05:38→17:17)
[2021-04-28] MEDS: Fluticasone Propionate 110 MCG AER.W.ADAP 2 PUFF INHALATION ×2 (05:41→17:18)
[2021-04-28 05:49] LABS: Absolute Lymphocyte Count 0.92 X10^3/uL (0.83-4.51); Absolute Neutrophil Count 4.2 X10^3/uL (2.0-7.7); Basophil# 0.02 X10^3/uL; Basophil% 0.3 % (0-1); Eosinophils% 6.5 % (0-5); Hematocrit 37.3 % (37-47); Hemoglobin 12.3 g/dL (12.0-15.0); Lymphocyte # 0.92 X10^3/ul (0.83-4.51); Mean Corpuscular Hgb 29.5 pg (27.0-32.0); Mean Corpuscular Volume 89.4 fL (81-99); Mean Platelet Vol. 10.2 fl (6.2-12.0); Monocyte# 0.54 X10^3/uL; Monocyte% 8.8 % (0-10); NRBC Flagged by Analyzer 0 % (0-5); Neutrophil # 4.21 X10^3/uL (2.7-7.7); Neutrophil % 68.7 % (47-70); Platelet Count 261 K/mm3 (150-450); RBC Distribution Width CV 13.4 % (11.6-14.6); RBC Distribution Width SD 44.1 fl (35.1-43.9); Red Blood Count 4.17 M/mm3 (4.2-5.4); White Blood Count 6.1 K/mm3 (4.4-11.0)
[2021-04-28 06:27] LABS: Anion Gap 9 (5-15); BUN 17 mg/dL (7-18); BUN/Creat Ratio 30.6 RATIO (10-20); Calcium,Total 8.9 mg/dL (8.5-10.1); Chloride 101 mmol/L (98-107); Creatinine, Serum 0.56 mg/dL (0.55-1.02); EST Glomerular Filtration Rate 116 mL/min (>60); Est Glom Filt Rate - Afr Amer 141 mL/min (>60); Estimated Creatinine Clearance 75.58 ml/min; Glucose 114 mg/dL (74-106); Potassium 3.8 mmol/L (3.5-5.1); Sodium Level 138 mmol/L (136-145)
[2021-04-28] MEDS: Tuberculin,Purif.prot.deriv. 50 TU/ML Vial 0.1 ML ID (10:16)
--- NOTE | 2021-04-28 13:56 | CASEMGMT ---
Social Work Met with patient for initial assessment. Discussed code status. Confirmed full code. MOLST form completed, communication to , placed in chart. Pt has no advanced directives and denied to complete or receive information. Explained Medicare benefit. Encouraged to contact secondary insurance to ensure copay coverage as pt is NWBS for 4 weeks to LLE. The goal is for pt to return home with . However, cannot physically assist and pt has 4 steps to enter. Provided ramp resources to begin planning. Pt disclosed ongoing feelings from loss of son at 6 years old and having to give CPR to for first heart attack. Pt denied any triggers. Pt stated she is not on any current antidepressant/antianxiety meds and would like to start. Pt denied to return to counseling or current SI. Left communication to Dr. Leonard for medication. Provided emotional support and offered ongoing support during stay. Pt appreciative. SW to continue to follow for discharge planning and support. Katarzyna Walton, SALES TRAINING REPRESENTATIVE CASING [employer]
[2021-04-28 14:00] VITALS: PULSE 82; RESP 16; O2SAT 95
[2021-04-28 14:49] VITALS: BP 136/72; PULSE 92; RESP 22; TEMP 36.8; O2SAT 93
[2021-04-28] MEDS: Acetaminophen 500 MG Tablet 1000 MG PO ×2 (15:33→21:54)
[2021-04-28] MEDS: Gabapentin 300 MG Capsule PO (20:32)
[2021-04-28] MEDS: Montelukast 10 MG Tablet PO (20:37)
--- NOTE | 2021-04-28 21:45 | NURSING ---
Spoke with pt about new orders for Ativan and Prozac, pt states she was on these meds a few years ago, not sure if she will need them, but talked about losing her young son years ago, states it was in April and this month I have a harder time dealing with things. Willing to try Prozac in am, wants to hold off on taking Ativan at this time. Pt calm and pleasant at this time, will continue to monitor.
[2021-04-29] MEDS: Acetaminophen 500 MG Tablet 1000 MG PO ×2 (04:23→17:56)
[2021-04-29] MEDS: Azelastine HCl NASAL.SRY 1 SPRAY NASAL ×2 (04:24→17:52)
[2021-04-29] MEDS: Fluticasone 0.05% 1 SPRAY NASAL.SRY 2 SPRAY NASAL (04:24)
[2021-04-29 04:25] VITALS: BP 147/79; PULSE 83
[2021-04-29] MEDS: hydroCHLOROthiazide 12.5mg 12.5 MG PO (04:25)
[2021-04-29] MEDS: amLODIPine 10 MG Tablet PO (04:25)
[2021-04-29] MEDS: Senna/Docusate Sodium 1 Tablet PO ×2 (04:25→17:51)
[2021-04-29] MEDS: guaiFENesin 1,200 MG Tablet 1200 MG PO ×2 (04:25→17:51)
[2021-04-29] MEDS: FLUoxetine 10 MG Capsule PO (04:25)
[2021-04-29] MEDS: Polyethylene Glycol 3350 17 GM PACKET PO (04:25)
[2021-04-29] MEDS: APIXABAN 5 MG TABLET 10 MG PO ×2 (04:26→17:51)
[2021-04-29] MEDS: Fluticasone Propionate 110 MCG AER.W.ADAP 2 PUFF INHALATION ×2 (04:26→17:52)
[2021-04-29] MEDS: Menthol/Lanolin/Calamine/Znox 113 GM Tube 1 APPLIC TOPICAL ×2 (04:27→17:54)
[2021-04-29 08:20] VITALS: O2SAT 94
[2021-04-29] MEDS: oxyCODONE 5 MG Tablet PO ×3 (08:33→17:51)
[2021-04-29] MEDS: Gabapentin 300 MG Capsule PO ×2 (10:41→20:20)
[2021-04-29 13:22] VITALS: BP 145/70; PULSE 90; RESP 15; TEMP 36.1; O2SAT 94
[2021-04-29 20:15] VITALS: O2SAT 93
[2021-04-29] MEDS: Montelukast 10 MG Tablet PO (20:17)
[2021-04-30] MEDS: Acetaminophen 500 MG Tablet 1000 MG PO ×2 (02:25→21:03)
[2021-04-30] MEDS: oxyCODONE 5 MG Tablet PO ×3 (02:25→21:03)
[2021-04-30 05:25] VITALS: BP 134/78; PULSE 73
[2021-04-30] MEDS: Menthol/Lanolin/Calamine/Znox 113 GM Tube 1 APPLIC TOPICAL ×2 (05:25→21:04)
[2021-04-30] MEDS: Fluticasone 0.05% 1 SPRAY NASAL.SRY 2 SPRAY NASAL (05:25)
[2021-04-30] MEDS: Azelastine HCl NASAL.SRY 1 SPRAY NASAL ×2 (05:25→17:06)
[2021-04-30] MEDS: Fluticasone Propionate 110 MCG AER.W.ADAP 2 PUFF INHALATION ×2 (05:25→17:07)
[2021-04-30] MEDS: Polyethylene Glycol 3350 17 GM PACKET PO (05:26)
[2021-04-30] MEDS: FLUoxetine 10 MG Capsule PO (05:27)
[2021-04-30] MEDS: amLODIPine 10 MG Tablet PO (05:27)
[2021-04-30] MEDS: Senna/Docusate Sodium 1 Tablet PO ×2 (05:27→17:07)
[2021-04-30] MEDS: hydroCHLOROthiazide 12.5mg 12.5 MG PO (05:27)
[2021-04-30] MEDS: APIXABAN 5 MG TABLET 10 MG PO ×2 (05:28→17:06)
[2021-04-30] MEDS: guaiFENesin 1,200 MG Tablet 1200 MG PO ×2 (05:28→17:07)
[2021-04-30 06:35] VITALS: O2SAT 94
[2021-04-30] MEDS: Gabapentin 300 MG Capsule PO (15:11)
[2021-04-30 15:49] VITALS: BP 136/72; PULSE 86; RESP 18; TEMP 36.9; O2SAT 94
--- NOTE | 2021-04-30 19:42 | PN_ITS ---
Subjective Subjective Patient was seen to for follow up on left foot/ankle sx. She relates everyday the foot/ankle is feeling better. She does relate there is some pain if her foot is not elevated. She has no pain when resting, and she relates she is taking less pain medication. She feels like she is on the right road. She has no feve rs, chills, nausea or vomiting. Objective Data Objective Data Vital Signs: Vital Signs Temp Pulse Resp BP Pulse Ox 98.5 F 86 18 136/72 H 94 04/30/21 15:49 04/30/21 15:49 04/30/21 15:49 04/30/21 15:49 04/30/21 15:49 Oxygen Flow Rate (L/min) 2 Oxygen Delivery Method Room Air Weight: 97.976 kg Intake & Output: Intake and Output for Last 24 Hours 04/28/21 04/29/21 04/30/21 23:59 23:59 23:59 Intake Total 720 / 720 720 / 720 720 / 720 Output Total 500 / 500 500 / 500 300 / 300 Balance 220 / 220 220 / 220 420 / 420 Lab / Micro Data Result Diagrams: 04/28/21 05:37 04/28/21 05:37 Physical Exam Const alert, oriented x3 and no apparent distress Extremity Extremity Narrative: Left foot/ankle: Incision sites well coapted, no dehiscence, no cellulitis, no drainage, no visible abscess, there is noted to be some ecchymosis to the ankle c/w normal post op course, no visible abscess, no crepitus, no fluctuance present, CFT < 2 seconds to all toes with intact pedal pulses, no evidence of ischemia, no calf pain, patient is able to move toes and foot/ankle in all directions, there is some pain to the incision sites with palpation c/w normal healing/post op findings, but otherwise no pain present. Sensation intact to the left foot and ankle. Mild maceration in between the left 4th and 5th toes. Assessment & Plan Assessment/Plan (1) Plantar fasciitis, left: (2) Left Achilles tendinitis: (3) Other injury of muscle(s) and tendon(s) of peroneal muscle group at lower leg level, left leg, subsequent encounter: PLAN: Evaluation performed. Patient doing well, continues to heal and progress well. Changed dressing - no evidence of infection at this time. Painted incision sites with betadine soln, painted 4th ID space with betadine soln, applied sterile gauze, kerlix and sherly dressing, applied overlying well padded below knee posterior splint with heel offloaded. Keep clean, dry, and intact. Keep left foot elevated. Keep heel and lateral ankle offloaded. No weightbearing left foot. This was reviewed with patient. Noted right LE soleus vein DVT - patient is on Eliquis. Podiatry will continue to follow.
[2021-04-30] MEDS: Montelukast 10 MG Tablet PO (21:04)
[2021-05-01] MEDS: Polyethylene Glycol 3350 17 GM PACKET PO (06:14)
[2021-05-01] MEDS: Azelastine HCl NASAL.SRY 1 SPRAY NASAL ×2 (06:16→17:07)
[2021-05-01] MEDS: Fluticasone 0.05% 1 SPRAY NASAL.SRY 2 SPRAY NASAL (06:17)
[2021-05-01] MEDS: Fluticasone Propionate 110 MCG AER.W.ADAP 2 PUFF INHALATION ×2 (06:17→17:08)
[2021-05-01] MEDS: APIXABAN 5 MG TABLET 10 MG PO ×2 (06:18→17:08)
[2021-05-01] MEDS: hydroCHLOROthiazide 12.5mg 12.5 MG PO (06:19)
[2021-05-01] MEDS: FLUoxetine 10 MG Capsule PO (06:19)
[2021-05-01] MEDS: amLODIPine 10 MG Tablet PO (06:19)
[2021-05-01] MEDS: Senna/Docusate Sodium 1 Tablet PO ×2 (06:19→17:08)
[2021-05-01] MEDS: Menthol/Lanolin/Calamine/Znox 113 GM Tube 1 APPLIC TOPICAL ×2 (06:19→17:08)
[2021-05-01] MEDS: guaiFENesin 1,200 MG Tablet 1200 MG PO ×2 (06:19→17:08)
[2021-05-01 06:52] VITALS: O2SAT 98
[2021-05-01] MEDS: oxyCODONE 5 MG Tablet PO ×3 (11:13→22:15)
[2021-05-01] MEDS: Acetaminophen 500 MG Tablet 1000 MG PO ×2 (11:13→17:15)
[2021-05-01 14:07] VITALS: BP 124/64; PULSE 82; RESP 16; TEMP 36.9; O2SAT 97
[2021-05-01] MEDS: Montelukast 10 MG Tablet PO (21:13)
[2021-05-01 21:21] VITALS: PULSE 86; RESP 14; O2SAT 96
[2021-05-02] MEDS: oxyCODONE 5 MG Tablet PO ×3 (03:25→19:26)
[2021-05-02] MEDS: Azelastine HCl NASAL.SRY 1 SPRAY NASAL ×2 (05:28→17:12)
[2021-05-02] MEDS: Fluticasone Propionate 110 MCG AER.W.ADAP 2 PUFF INHALATION ×2 (05:28→17:13)
[2021-05-02] MEDS: Fluticasone 0.05% 1 SPRAY NASAL.SRY 2 SPRAY NASAL (05:28)
[2021-05-02] MEDS: Menthol/Lanolin/Calamine/Znox 113 GM Tube 1 APPLIC TOPICAL ×2 (05:28→17:13)
[2021-05-02] MEDS: guaiFENesin 1,200 MG Tablet 1200 MG PO ×2 (05:29→17:13)
[2021-05-02] MEDS: hydroCHLOROthiazide 12.5mg 12.5 MG PO (05:29)
[2021-05-02] MEDS: Senna/Docusate Sodium 1 Tablet PO ×2 (05:30→17:13)
[2021-05-02] MEDS: FLUoxetine 10 MG Capsule PO (05:30)
[2021-05-02] MEDS: APIXABAN 5 MG TABLET 10 MG PO ×2 (05:30→17:13)
[2021-05-02] MEDS: amLODIPine 10 MG Tablet PO (05:30)
[2021-05-02 10:37] VITALS: PULSE 86; RESP 14; O2SAT 93
[2021-05-02] MEDS: Acetaminophen 500 MG Tablet 1000 MG PO (12:45)
[2021-05-02 16:26] VITALS: BP 131/68; PULSE 86; RESP 14; TEMP 37; O2SAT 93
[2021-05-02] MEDS: Montelukast 10 MG Tablet PO (19:26)
--- NOTE | 2021-05-03 01:35 | NURSING ---
Pt alert and oriented. taking oxy prn for pain with good effect for 4-6 hrs.
[2021-05-03] MEDS: Acetaminophen 500 MG Tablet 1000 MG PO ×3 (02:09→22:05)
[2021-05-03] MEDS: Gabapentin 300 MG Capsule PO (02:09)
[2021-05-03] MEDS: Azelastine HCl NASAL.SRY 1 SPRAY NASAL ×2 (05:41→18:01)
[2021-05-03] MEDS: Fluticasone Propionate 110 MCG AER.W.ADAP 2 PUFF INHALATION ×2 (05:41→18:01)
[2021-05-03] MEDS: Fluticasone 0.05% 1 SPRAY NASAL.SRY 2 SPRAY NASAL (05:41)
[2021-05-03] MEDS: Senna/Docusate Sodium 1 Tablet PO ×2 (05:41→18:00)
[2021-05-03] MEDS: FLUoxetine 10 MG Capsule PO ×2 (05:42→05:43)
[2021-05-03] MEDS: Menthol/Lanolin/Calamine/Znox 113 GM Tube 1 APPLIC TOPICAL ×2 (05:42→17:59)
[2021-05-03] MEDS: APIXABAN 5 MG TABLET 10 MG PO ×2 (05:42→17:58)
[2021-05-03] MEDS: hydroCHLOROthiazide 12.5mg 12.5 MG PO (05:42)
[2021-05-03] MEDS: guaiFENesin 1,200 MG Tablet 1200 MG PO ×2 (05:43→17:59)
[2021-05-03] MEDS: amLODIPine 10 MG Tablet PO (05:43)
[2021-05-03] MEDS: oxyCODONE 5 MG Tablet PO ×4 (05:47→22:04)
[2021-05-03] MEDS: LORazepam 0.5 MG Tablet PO (10:51)
[2021-05-03 14:28] VITALS: BP 138/75; PULSE 92; RESP 16; TEMP 36.8; O2SAT 95
[2021-05-03 18:05] VITALS: PULSE 78; RESP 18; O2SAT 94
[2021-05-03 22:00] VITALS: PULSE 98; RESP 18; O2SAT 98
[2021-05-03] MEDS: Montelukast 10 MG Tablet PO (22:05)
[2021-05-04] MEDS: Fluticasone 0.05% 1 SPRAY NASAL.SRY 2 SPRAY NASAL (05:33)
[2021-05-04] MEDS: Fluticasone Propionate 110 MCG AER.W.ADAP 2 PUFF INHALATION ×2 (05:34→17:27)
[2021-05-04] MEDS: hydroCHLOROthiazide 12.5mg 12.5 MG PO (05:34)
[2021-05-04] MEDS: Senna/Docusate Sodium 1 Tablet PO ×2 (05:34→17:28)
[2021-05-04] MEDS: Polyethylene Glycol 3350 17 GM PACKET PO (05:34)
[2021-05-04] MEDS: amLODIPine 10 MG Tablet PO (05:34)
[2021-05-04] MEDS: guaiFENesin 1,200 MG Tablet 1200 MG PO ×2 (05:34→17:27)
[2021-05-04] MEDS: Azelastine HCl NASAL.SRY 1 SPRAY NASAL ×2 (05:34→17:27)
[2021-05-04] MEDS: APIXABAN 5 MG TABLET PO ×2 (05:35→17:28)
[2021-05-04] MEDS: oxyCODONE 5 MG Tablet PO ×4 (05:40→23:18)
[2021-05-04 05:43] VITALS: BP 147/79; PULSE 82
[2021-05-04] MEDS: Acetaminophen 500 MG Tablet 1000 MG PO ×3 (05:43→23:21)
[2021-05-04] MEDS: Menthol/Lanolin/Calamine/Znox 113 GM Tube 1 APPLIC TOPICAL ×2 (05:44→17:27)
[2021-05-04] MEDS: LORazepam 0.5 MG Tablet PO ×2 (10:24→23:17)
--- NOTE | 2021-05-04 13:57 | PCM.PN.RX ---
Progress Note - Pharmacy Subjective: TCU Admission Objective: Allergies levofloxacin [From Levaquin] Allergy (Verified 04/02/21 11:07) Rash Sulfa (Sulfonamide Antibiotics) Allergy (Verified 04/23/21 09:15) itching as a child had reaction as a child Current Medications Generic Name Dose Route Start Last Admin Trade Name Freq PRN Reason Stop Dose Admin Acetaminophen 1,000 mg 04/27/21 20:34 05/04/21 13:50 Acetaminophen 500 Mg Tablet PO 1,000 mg Q6H PRN PRN Administration Pain Score 1-3 Albuterol Sulfate 2.5 mg 04/27/21 19:58 Albuterol 2.5 Mg/3 Ml Vial.Neb. INHALATION Q4H PRN shortness of breath or wheezing Amlodipine Besylate 10 mg 04/28/21 06:00 05/04/21 05:34 Amlodipine 10 Mg Tablet PO 10 mg DAILY VITA Administration Apixaban 5 mg 05/04/21 06:00 05/04/21 05:35 Apixaban 5 Mg Tablet PO 07/28/21 20:33 5 mg BID VITA Administration Azelastine HCl 1 spray 04/28/21 06:00 05/04/21 05:34 Azelastine Hcl Nasal.Sry NASAL 1 spray BID VITA Administration Bisacodyl 10 mg 04/27/21 20:34 Bisacodyl 5 Mg Tablet PO DAILY PRN Constipation Calamine/Phenol 1 applic 04/28/21 06:00 05/04/21 05:44 Menthol/Lanolin/Calamine/Znox 113 Gm Tube TOPICAL 1 applic BID VITA Administration Protocol Fluoxetine HCl 10 mg 04/29/21 06:00 05/03/21 05:43 Fluoxetine 10 Mg Capsule PO 10 mg DAILY VITA Administration Fluticasone Propionate 2 puff 04/28/21 06:00 05/04/21 05:34 Fluticasone Propionate 110 Mcg Aer.W.Adap INHALATION 2 puff BID VITA Administration Fluticasone Propionate 2 spray 04/28/21 06:00 05/04/21 05:33 Fluticasone 0.05% 1 [place] Nasal.Sry NASAL 2 spray DAILY VITA Administration Gabapentin 300 mg 04/27/21 20:35 05/03/21 02:09 Gabapentin 300 Mg Capsule PO 300 mg TID PRN PRN Administration neuropathic pain Guaifenesin 1,200 mg 04/28/21 06:00 05/04/21 05:34 Guaifenesin 1,200 Mg Tablet PO 1,200 mg BID VITA Administration Hydrochlorothiazide 12.5 mg 04/28/21 06:00 05/04/21 05:34 Hydrochlorothiazide 12.5mg PO 12.5 mg DAILY VITA Administration Lorazepam 0.5 mg 04/28/21 15:47 05/04/21 10:24 Lorazepam 0.5 Mg Tablet PO 0.5 mg Q8H PRN PRN Administration ANXIETY Montelukast Sodium 10 mg 04/27/21 21:00 05/03/21 22:05 Montelukast 10 Mg Tablet PO 10 mg QPM VITA Administration Oxycodone HCl 5 mg 04/27/21 20:34 05/04/21 13:50 Oxycodone 5 Mg Tablet PO 5 mg Q4H PRN PRN Administration Pain Score 4-10 Polyethylene Glycol 17 gm 04/28/21 06:00 05/04/21 05:34 Polyethylene Glycol 3350 17 Gm Packet PO 17 gm DAILY VITA Administration Senna/Docusate Sodium 1 tablet 04/28/21 06:00 05/04/21 05:34 Senna/Docusate Sodium 1 Tablet PO 1 tablet BID VITA Administration Tuberculin PPD 0.1 ml 05/05/21 10:00 Tuberculin,Purif.Prot.Deriv. 50 Tu/Ml Vial ID 05/05/21 10:01 X1 ONE Problem List (Last Reviewed 04/27/21 @ 20:[address] Francesco Leonard MD) Neuropathic pain (Acute) Hyperlipidemia (Acute) Osteoarthritis (Acute) Hypertension (Chronic) Chronic obstructive pulmonary disease (Chronic) Deep vein thrombosis, lower right extremity (Acute) Plantar fasciitis, left (Acute) Left Achilles tendinitis (Acute) Debility (Acute) Other injury of muscle(s) and tendon(s) of peroneal muscle group at lower leg level, left leg, subsequent encounter (Acute) Vital Signs Temp Pulse Resp BP Pulse Ox 98.2 F 82 18 147/79 H 98 05/03/21 14:28 05/04/21 05:43 05/03/21 22:00 05/04/21 05:43 05/03/21 22:00 Oxygen Flow Rate (L/min) 3 Oxygen Delivery Method Nasal Cannula Weight: 96.071 kg Sodium 138 mmol/L (136-145) 04/28/21 05:37 Potassium 3.8 mmol/L (3.5-5.1) 04/28/21 05:37 Chloride 101 mmol/L (98-107) 04/28/21 05:37 Carbon Dioxide 28.0 mmol/L (21.0-32.0) 04/28/21 05:37 Anion Gap 9 (5-15) 04/28/21 05:37 BUN 17 mg/dL (7-18) 04/28/21 05:37 Creatinine 0.56 mg/dL (0.55-1.02) 04/28/21 05:37 Est GFR (MDRD) Af Amer 141 mL/min (>60) 04/28/21 05:37 Est GFR (MDRD) Non-Af 116 mL/min (>60) 04/28/21 05:37 BUN/Creatinine Ratio 30.6 RATIO (10-20) H 04/28/21 05:37 Glucose 114 mg/dL (74-106) H 04/28/21 05:37 Assessment/Plan: 1. Pain: acetaminophen 1000mg PO Q6H PRN pain 1-3/10 and oxycodone 5mg PO Q4H PRN pain 4-10/10. Please continue to monitor for increased pain, PRN usage, constipation and respiratory depression. 2. Acute DVT RLE: apixaban 5mg PO BID thru 07/28/21. Please continue to monitor for S/S of bleeding and hemoglobin (last 12.3g/dL). 3. Hypertension: amlodipine 10mg PO daily and hydrochlorothiazide 12.5mg PO daily. Please continue to monitor BP (last 147/79), swelling, renal function, potassium (last 3.8mmol/L) and sodium (last 138mmol/L). 4. COPD: Flovent 110mcg.actuation 2 puffs BID and albuterol nebulized solution 2.5mg inhalation Q4H PRN SOB/wheezing. Please continue to monitor for SOB, wheezing, thrush and PRN usage. Please rinse and spit with water following Flovent administration. 5. Allergic rhinitis: Astelin nasal spray 1spray nasal BID, Flonase 0.05% 1spray nasal daily and montelukast 10mg PO QPM. Please continue to monitor for S/S of allergic and dry nostrils. 6. Neuropathic pain: gabapentin 300mg PO TID PRN neuropathic pain. Please continue to monitor for pain and renal function. 7. Congestion: guaifenesin 1200mg PO BID. Please continue to monitor for congestion. Psychotropic Medications: 1. Depression: fluoxetine 10mg PO daily. Patient just started medication. GDR not appropriate. Please continue to monitor for GI symptoms. 2. Anxiety: lorazepam 0.5mg PO Q8H PRN anxiety. Patient just started medication. GDR not appropriate. Please continue to monitor for dizziness and drowsiness. Unnecessary Medications: None Bowel Regimen: Miralax 17gm PO daily, senna/docusate 1T PO BID and bisacodyl 10mg PO daily PRN constipation. Please continue to monitor for constipation and PRN usage. Date of Note:: 05/04/21
[2021-05-04 15:33] VITALS: BP 140/77; PULSE 89; RESP 14; TEMP 36.7; O2SAT 97
[2021-05-04 16:34] VITALS: PULSE 89; RESP 18; O2SAT 95
[2021-05-04] MEDS: Montelukast 10 MG Tablet PO (23:18)
[2021-05-04] MEDS: MENTHOL 226.8 GM JAR 1 APPLIC TOPICAL (23:21)
[2021-05-05 05:52] LABS: Absolute Lymphocyte Count 1.19 X10^3/uL (0.83-4.51); Absolute Neutrophil Count 4.3 X10^3/uL (2.0-7.7); Basophil# 0.07 X10^3/uL; Basophil% 1.1 % (0-1); Eosinophil# 0.25 X10^3/uL; Eosinophils% 3.9 % (0-5); Hematocrit 40.7 % (37-47); Hemoglobin 13.2 g/dL (12.0-15.0); Lymphocyte # 1.19 X10^3/ul (0.83-4.51); Lymphocyte % 18.8 % (19-41); Mean Corp Hgb Conc 32.4 g/dL (32-36); Mean Corpuscular Hgb 29.6 pg (27.0-32.0); Mean Corpuscular Volume 91.3 fL (81-99); Mean Platelet Vol. 10.6 fl (6.2-12.0); Monocyte# 0.49 X10^3/uL; Monocyte% 7.7 % (0-10); NRBC Flagged by Analyzer 0 % (0-5); Neutrophil # 4.27 X10^3/uL (2.7-7.7); Neutrophil % 67.6 % (47-70); Platelet Count 282 K/mm3 (150-450); RBC Distribution Width CV 13.4 % (11.6-14.6); RBC Distribution Width SD 45.2 fl (35.1-43.9); Red Blood Count 4.46 M/mm3 (4.2-5.4); White Blood Count 6.3 K/mm3 (4.4-11.0)
[2021-05-05] MEDS: Polyethylene Glycol 3350 17 GM PACKET PO (05:58)
[2021-05-05] MEDS: APIXABAN 5 MG TABLET PO ×2 (05:59→17:10)
[2021-05-05] MEDS: guaiFENesin 1,200 MG Tablet 1200 MG PO ×2 (05:59→17:10)
[2021-05-05] MEDS: amLODIPine 10 MG Tablet PO (05:59)
[2021-05-05] MEDS: FLUoxetine 10 MG Capsule PO (06:00)
[2021-05-05] MEDS: Azelastine HCl NASAL.SRY 1 SPRAY NASAL ×2 (06:00→17:10)
[2021-05-05] MEDS: Senna/Docusate Sodium 1 Tablet PO ×2 (06:00→17:10)
[2021-05-05] MEDS: hydroCHLOROthiazide 12.5mg 12.5 MG PO (06:00)
[2021-05-05] MEDS: Fluticasone Propionate 110 MCG AER.W.ADAP 2 PUFF INHALATION ×2 (06:00→17:11)
[2021-05-05] MEDS: Menthol/Lanolin/Calamine/Znox 113 GM Tube 1 APPLIC TOPICAL ×2 (06:01→12:54)
[2021-05-05] MEDS: Fluticasone 0.05% 1 SPRAY NASAL.SRY 2 SPRAY NASAL (06:07)
[2021-05-05] MEDS: Acetaminophen 500 MG Tablet 1000 MG PO ×3 (06:08→20:20)
[2021-05-05] MEDS: oxyCODONE 5 MG Tablet PO ×3 (06:08→17:16)
[2021-05-05] MEDS: MENTHOL 226.8 GM JAR 1 APPLIC TOPICAL (06:12)
[2021-05-05 06:16] LABS: Anion Gap 6 (5-15); BUN 15 mg/dL (7-18); BUN/Creat Ratio 25.8 RATIO (10-20); Calcium,Total 8.9 mg/dL (8.5-10.1); Chloride 102 mmol/L (98-107); Creatinine, Serum 0.58 mg/dL (0.55-1.02); EST Glomerular Filtration Rate 110 mL/min (>60); Est Glom Filt Rate - Afr Amer 134 mL/min (>60); Estimated Creatinine Clearance 72.97 ml/min; Glucose 101 mg/dL (74-106); Potassium 3.8 mmol/L (3.5-5.1); Sodium Level 137 mmol/L (136-145)
--- NOTE | 2021-05-05 09:43 | CASEMGMT ---
Social Work IDT met with patient and via conference call for care plan meeting. Discussed patients progress in PT/OT and nursing. Explained Medicare benefit. Encouraged to contact secondary insurance to ensure copay coverage. Pt lives at home with but cannot physically assist d/t his own rahel conditions. Pt has 4 steps to enter and pt is NWB for about 4 weeks. Provided ramp resources for pt to install to enter home. Pt has steps to get to basement laundry but son can complete. Requested to bring in home shower chair to practice transfers in therapy. agreeable. SW to continue to follow. Katarzyna Walton, DRY TALC RACKER RN TRAUMA
[2021-05-05] MEDS: Tuberculin,Purif.prot.deriv. 50 TU/ML Vial 0.1 ML ID (10:58)
[2021-05-05 14:27] VITALS: BP 141/75; PULSE 82; RESP 15; TEMP 36.6; O2SAT 92
--- NOTE | 2021-05-05 17:31 | RAD_ITS ---
STUDY: XR Shoulder Min 2 Views REASON FOR EXAM: Female, 66 years old. PAIN TECHNIQUE: XR Shoulder Min 2 Views COMPARISON: None. FINDINGS: Normal glenohumeral articulation. There is degenerative arthrosis of the acromioclavicular joint without inferior osseous spur formation. Normal acromion. Normal humeral head and visualized proximal humerus. The soft tissue structures are unremarkable. Normal visualized pulmonary apex. RAD/Shoulder min 2 Views IMPRESSION: There are no acute findings of the shoulder. Electronically Signed: Damien Wood MD at 19:37 EST , Service support ,
--- NOTE | 2021-05-05 18:35 | NURSING ---
Complaining of Lt shoulder pain that is getting worse. Dr Leonard aware and orders medrol dose pack and xray to shoulder. Resident aware.
[2021-05-05 20:15] VITALS: O2SAT 93
[2021-05-05] MEDS: Gabapentin 300 MG Capsule PO (20:20)
[2021-05-05] MEDS: Montelukast 10 MG Tablet PO (20:21)
[2021-05-05] MEDS: MethylPREDNISolone DosePak 4 MG BOX PO (20:22)
[2021-05-05 20:40] VITALS: PULSE 88; RESP 16; O2SAT 97
[2021-05-05] MEDS: Albuterol 2.5 MG/3 ML VIAL.NEB. INHALATION (20:40)
[2021-05-06] MEDS: Polyethylene Glycol 3350 17 GM PACKET PO (05:44)
[2021-05-06 05:45] VITALS: BP 150/82; PULSE 95
[2021-05-06] MEDS: amLODIPine 10 MG Tablet PO (05:45)
[2021-05-06] MEDS: oxyCODONE 5 MG Tablet PO ×4 (05:45→21:46)
[2021-05-06] MEDS: guaiFENesin 1,200 MG Tablet 1200 MG PO ×2 (05:45→17:45)
[2021-05-06] MEDS: APIXABAN 5 MG TABLET PO ×2 (05:45→17:45)
[2021-05-06] MEDS: Senna/Docusate Sodium 1 Tablet PO ×2 (05:45→17:45)
[2021-05-06] MEDS: Acetaminophen 500 MG Tablet 1000 MG PO ×3 (05:45→21:47)
[2021-05-06] MEDS: Fluticasone Propionate 110 MCG AER.W.ADAP 2 PUFF INHALATION ×2 (05:45→17:44)
[2021-05-06] MEDS: hydroCHLOROthiazide 12.5mg 12.5 MG PO (05:45)
[2021-05-06] MEDS: FLUoxetine 10 MG Capsule PO (05:45)
[2021-05-06] MEDS: Azelastine HCl NASAL.SRY 1 SPRAY NASAL ×2 (05:46→17:44)
[2021-05-06] MEDS: Fluticasone 0.05% 1 SPRAY NASAL.SRY 2 SPRAY NASAL (05:46)
[2021-05-06] MEDS: Menthol/Lanolin/Calamine/Znox 113 GM Tube 1 APPLIC TOPICAL ×2 (05:46→18:08)
[2021-05-06] MEDS: MENTHOL 226.8 GM JAR 1 APPLIC TOPICAL ×3 (05:50→21:50)
[2021-05-06] MEDS: MethylPREDNISolone DosePak 4 MG BOX PO ×4 (08:59→21:48)
--- NOTE | 2021-05-06 10:58 | RAD_ITS ---
STUDY: X-RAY CHEST REASON FOR EXAM: Female, 66 years old. Cough/crackles/wheezing. TECHNIQUE: AP and lateral views of the chest. COMPARISON: Comparison is made with prior study dated 09/27/2018. FINDINGS: There is hyperinflation of the lungs consistent with chronic obstructive lung disease (COPD). Mild degree of residual increased markings at the lung bases suggestive of mild scarring. There is no demonstrated pleural abnormality. Normal size heart. Normal mediastinum and radha. Normal visualized pulmonary arteries. There is atherosclerotic tortuosity of the aortic arch and descending thoracic aorta. Normal visualized thoracic spine. Normal visualized ribs, clavicles, and shoulders. There is no demonstrated abnormality of the visualized soft tissue structures of the upper abdomen. RAD/Chest PA and Lateral IMPRESSION: Findings suggestive of mild degree of residual basilar scarring. Electronically Signed: Jonathan Mix MD at 15:23 EST , Service support ,
[2021-05-06] MEDS: Gabapentin 300 MG Capsule PO (15:28)
--- NOTE | 2021-05-06 15:30 | NURSING ---
Patient continues to complain of 9/10 shoulder pain. Readjusting self in chair and in bed makes the pain worse. PRN Oxy and Tylenol somewhat effective. This nurse gave PRN gabapentin 300mg per order and applied blue gel to affected area. Will continue to monitor.
[2021-05-06 15:34] VITALS: PULSE 92; RESP 18; O2SAT 98
[2021-05-06 15:51] VITALS: BP 130/82; PULSE 92; RESP 18; TEMP 37; O2SAT 98
[2021-05-06] MEDS: LORazepam 0.5 MG Tablet PO (21:46)
[2021-05-06] MEDS: Montelukast 10 MG Tablet PO (21:48)
[2021-05-07 06:00] VITALS: BP 139/74; PULSE 77
[2021-05-07] MEDS: oxyCODONE 5 MG Tablet PO ×4 (06:02→21:53)
[2021-05-07] MEDS: Azelastine HCl NASAL.SRY 1 SPRAY NASAL ×2 (06:03→17:01)
[2021-05-07] MEDS: Acetaminophen 500 MG Tablet 1000 MG PO ×3 (06:03→21:53)
[2021-05-07] MEDS: Fluticasone 0.05% 1 SPRAY NASAL.SRY 2 SPRAY NASAL (06:04)
[2021-05-07] MEDS: Menthol/Lanolin/Calamine/Znox 113 GM Tube 1 APPLIC TOPICAL ×2 (06:04→17:04)
[2021-05-07] MEDS: Fluticasone Propionate 110 MCG AER.W.ADAP 2 PUFF INHALATION ×2 (06:04→17:02)
[2021-05-07] MEDS: Senna/Docusate Sodium 1 Tablet PO ×2 (06:05→17:02)
[2021-05-07] MEDS: FLUoxetine 10 MG Capsule PO (06:05)
[2021-05-07] MEDS: guaiFENesin 1,200 MG Tablet 1200 MG PO ×2 (06:05→17:02)
[2021-05-07] MEDS: Polyethylene Glycol 3350 17 GM PACKET PO (06:06)
[2021-05-07] MEDS: amLODIPine 10 MG Tablet PO (06:06)
[2021-05-07] MEDS: hydroCHLOROthiazide 12.5mg 12.5 MG PO (06:06)
[2021-05-07] MEDS: APIXABAN 5 MG TABLET PO ×2 (06:06→17:02)
--- NOTE | 2021-05-07 07:04 | PCM.PROGNOTE ---
Subjective Subjective This patient was seen to for follow up on left foot/ankle surgery. She reports only minimal pain today. She denies fevers, chills, nausea, vomiting, calf pain, shortness of breath, chest pain. Objective Data Objective Data Vital Signs: Vital Signs Temp Pulse Resp BP Pulse Ox 98.6 F 77 18 139/74 H 98 05/06/21 15:51 05/07/21 06:00 05/06/21 15:51 05/07/21 06:00 05/06/21 15:51 Oxygen Flow Rate (L/min) 3 Oxygen Delivery Method Room Air Weight: 96.071 kg Intake & Output: Intake and Output for Last 24 Hours 05/05/21 05/06/21 05/07/21 23:59 23:59 23:59 Intake Total 1080 / 1080 720 / 720 Balance 1080 / 1080 720 / 720 Lab / Micro Data Result Diagrams: 05/05/21 05:35 05/05/21 05:35 Radiography Diagnostic Testing: Radiology Impression Chest X-Ray 05/06/21 10:58 IMPRESSION: Findings suggestive of mild degree of residual basilar scarring. Electronically Signed: Jonathan Mix MD at 15:23 EST , Service support , Physical Exam Const alert, oriented x3 and no apparent distress Extremity Extremity Narrative: Left foot/ankle: Incision sites well coapted, no dehiscence, no cellulitis, no drainage, no visible abscess, there is scant ecchymosis to the ankle, no gapping, no infection, no necrosis, no visible abscess, no crepitus, no fluctuance present, CFT < 2 seconds to all toes with intact pedal pulses, no evidence of ischemia, no calf pain, patient is able to move toes and foot/ankle in all directions. Sensation via light touch intact to the left foot and ankle. Assessment & Plan Assessment/Plan (1) Plantar fasciitis, left: (2) Left Achilles tendinitis: (3) Other injury of muscle(s) and tendon(s) of peroneal muscle group at lower leg level, left leg, subsequent encounter: PLAN: Evaluation performed. Patient doing well, continues to heal and progress well. Changed dressing - no evidence of infection at this time. Reapplied betadine soln, gauze, kerlix and sherly dressing, applied overlying well padded below knee posterior splint with heel offloaded. Lotion application to adjacent skin. Keep clean, dry, and intact. Keep left foot elevated. Keep heel and lateral ankle offloaded. No weightbearing left foot. This was reviewed with patient. We also discussed the anticipated healing time and management including eventual progressive weightbearing status in a cam walker boot possibly at the time frame of one month postoperative. Noted right LE soleus vein DVT - patient is on Eliquis. Podiatry will continue to follow. Please do not hesitate to call if you have any questions. Ericka Mac DPM, FACFAS [facility]
[2021-05-07 07:38] VITALS: O2SAT 97
--- NOTE | 2021-05-07 08:00 | MDS.RN ---
Information for the mds was obtained from review of the clinical record, interview of resident, staff, and direct observation of resident's care.
[2021-05-07] MEDS: MethylPREDNISolone DosePak 4 MG BOX PO ×4 (09:39→21:54)
[2021-05-07] MEDS: Gabapentin 300 MG Capsule PO (14:13)
[2021-05-07 14:49] VITALS: BP 135/74; PULSE 78; RESP 18; TEMP 36.8; O2SAT 96
[2021-05-07] MEDS: MENTHOL 226.8 GM JAR 1 APPLIC TOPICAL ×2 (15:15→21:54)
[2021-05-07 20:00] VITALS: PULSE 86; RESP 16; O2SAT 92
[2021-05-07] MEDS: Montelukast 10 MG Tablet PO (21:53)
[2021-05-07] MEDS: LORazepam 0.5 MG Tablet PO (21:53)
[2021-05-08] MEDS: oxyCODONE 5 MG Tablet PO ×5 (02:17→22:12)
[2021-05-08] MEDS: Gabapentin 300 MG Capsule PO ×2 (03:25→19:11)
[2021-05-08] MEDS: Acetaminophen 500 MG Tablet 1000 MG PO ×3 (05:42→22:13)
[2021-05-08] MEDS: Fluticasone Propionate 110 MCG AER.W.ADAP 2 PUFF INHALATION ×2 (05:43→17:17)
[2021-05-08] MEDS: FLUoxetine 10 MG Capsule PO (05:43)
[2021-05-08] MEDS: hydroCHLOROthiazide 12.5mg 12.5 MG PO (05:43)
[2021-05-08] MEDS: Senna/Docusate Sodium 1 Tablet PO ×2 (05:43→17:18)
[2021-05-08] MEDS: guaiFENesin 1,200 MG Tablet 1200 MG PO ×2 (05:43→17:18)
[2021-05-08] MEDS: amLODIPine 10 MG Tablet PO (05:43)
[2021-05-08] MEDS: Polyethylene Glycol 3350 17 GM PACKET PO (05:43)
[2021-05-08] MEDS: APIXABAN 5 MG TABLET PO ×2 (05:43→17:18)
[2021-05-08] MEDS: Menthol/Lanolin/Calamine/Znox 113 GM Tube 1 APPLIC TOPICAL ×2 (05:47→17:19)
[2021-05-08] MEDS: Azelastine HCl NASAL.SRY 1 SPRAY NASAL ×2 (05:47→17:17)
[2021-05-08] MEDS: Fluticasone 0.05% 1 SPRAY NASAL.SRY 2 SPRAY NASAL (05:48)
[2021-05-08 05:51] VITALS: BP 134/70; PULSE 73
[2021-05-08] MEDS: MethylPREDNISolone DosePak 4 MG BOX PO ×3 (08:23→22:14)
[2021-05-08] MEDS: Bisacodyl 5 MG Tablet 10 MG PO (08:28)
[2021-05-08] MEDS: MENTHOL 226.8 GM JAR 1 APPLIC TOPICAL ×2 (12:04→19:09)
[2021-05-08 15:35] VITALS: BP 136/71; PULSE 72; RESP 16; TEMP 37; O2SAT 93
[2021-05-08 16:34] VITALS: PULSE 72; RESP 16; O2SAT 93
[2021-05-08] MEDS: LORazepam 0.5 MG Tablet PO (22:12)
[2021-05-08] MEDS: Montelukast 10 MG Tablet PO (22:14)
--- NOTE | 2021-05-08 22:15 | NURSING ---
Pt requesting to have oxy, tylenol and ativan tonight, she states her shoulder is killing her and she feels anxious. Cautioned against taking ativan and oxy at the same time, pt states she has done this before and has been ok and would like to have it again this way. Medicated as requested, pt resting in bed, o2 on for the night, left leg elevated on pillow, call light in reach, will continue to monitor.
[2021-05-09] MEDS: Polyethylene Glycol 3350 17 GM PACKET PO (06:12)
[2021-05-09] MEDS: Azelastine HCl NASAL.SRY 1 SPRAY NASAL ×2 (06:13→17:03)
[2021-05-09] MEDS: Fluticasone 0.05% 1 SPRAY NASAL.SRY 2 SPRAY NASAL (06:13)
[2021-05-09] MEDS: Fluticasone Propionate 110 MCG AER.W.ADAP 2 PUFF INHALATION ×2 (06:13→17:07)
[2021-05-09] MEDS: Senna/Docusate Sodium 1 Tablet PO ×2 (06:13→17:04)
[2021-05-09] MEDS: hydroCHLOROthiazide 12.5mg 12.5 MG PO (06:13)
[2021-05-09] MEDS: amLODIPine 10 MG Tablet PO (06:14)
[2021-05-09] MEDS: FLUoxetine 10 MG Capsule PO (06:15)
[2021-05-09] MEDS: guaiFENesin 1,200 MG Tablet 1200 MG PO ×2 (06:15→17:04)
[2021-05-09] MEDS: APIXABAN 5 MG TABLET PO ×2 (06:15→17:04)
[2021-05-09] MEDS: Menthol/Lanolin/Calamine/Znox 113 GM Tube 1 APPLIC TOPICAL ×2 (06:16→17:04)
[2021-05-09 06:17] VITALS: BP 212/57; PULSE 70
[2021-05-09] MEDS: MethylPREDNISolone DosePak 4 MG BOX PO ×2 (08:19→21:21)
[2021-05-09] MEDS: oxyCODONE 5 MG Tablet PO ×3 (08:20→21:23)
[2021-05-09 12:00] VITALS: O2SAT 96
[2021-05-09] MEDS: Acetaminophen 500 MG Tablet 1000 MG PO ×2 (13:29→21:23)
[2021-05-09 16:00] VITALS: BP 137/74; PULSE 70; RESP 17; TEMP 36.9; O2SAT 93
[2021-05-09] MEDS: Montelukast 10 MG Tablet PO (21:21)
[2021-05-09] MEDS: LORazepam 0.5 MG Tablet PO (21:24)
[2021-05-09] MEDS: MENTHOL 226.8 GM JAR 1 APPLIC TOPICAL (21:26)
[2021-05-09 22:22] VITALS: O2SAT 94
[2021-05-10] MEDS: oxyCODONE 5 MG Tablet PO ×4 (01:52→21:52)
[2021-05-10] MEDS: Azelastine HCl NASAL.SRY 1 SPRAY NASAL ×2 (06:01→18:16)
[2021-05-10] MEDS: Polyethylene Glycol 3350 17 GM PACKET PO (06:02)
[2021-05-10] MEDS: guaiFENesin 1,200 MG Tablet 1200 MG PO ×2 (06:04→18:15)
[2021-05-10] MEDS: FLUoxetine 10 MG Capsule PO (06:04)
[2021-05-10] MEDS: amLODIPine 10 MG Tablet PO (06:04)
[2021-05-10] MEDS: APIXABAN 5 MG TABLET PO ×2 (06:04→18:15)
[2021-05-10] MEDS: Senna/Docusate Sodium 1 Tablet PO ×2 (06:04→18:15)
[2021-05-10] MEDS: hydroCHLOROthiazide 12.5mg 12.5 MG PO (06:04)
[2021-05-10] MEDS: Fluticasone Propionate 110 MCG AER.W.ADAP 2 PUFF INHALATION ×2 (06:05→18:15)
[2021-05-10] MEDS: Fluticasone 0.05% 1 SPRAY NASAL.SRY 2 SPRAY NASAL (06:05)
[2021-05-10] MEDS: MethylPREDNISolone DosePak 4 MG BOX PO (10:02)
[2021-05-10] MEDS: MENTHOL 226.8 GM JAR 1 APPLIC TOPICAL ×2 (10:07→16:30)
[2021-05-10] MEDS: Menthol/Lanolin/Calamine/Znox 113 GM Tube 1 APPLIC TOPICAL ×2 (10:09→18:18)
[2021-05-10 14:50] VITALS: BP 138/75; PULSE 85; RESP 18; TEMP 36.9; O2SAT 93
[2021-05-10 15:39] VITALS: PULSE 85; RESP 18; O2SAT 93
--- NOTE | 2021-05-10 15:53 | NURSING ---
Resident and spouse, Mansoor, notified of staff member testing positive for COVID.
[2021-05-10] MEDS: Acetaminophen 500 MG Tablet 1000 MG PO ×2 (16:29→22:52)
[2021-05-10] MEDS: Gabapentin 300 MG Capsule PO (20:39)
[2021-05-10] MEDS: Montelukast 10 MG Tablet PO (20:39)
[2021-05-10] MEDS: LORazepam 0.5 MG Tablet PO (21:51)
[2021-05-11 05:21] VITALS: BP 139/70; PULSE 74
[2021-05-11] MEDS: Polyethylene Glycol 3350 17 GM PACKET PO (05:24)
[2021-05-11] MEDS: Azelastine HCl NASAL.SRY 1 SPRAY NASAL ×2 (05:24→17:08)
[2021-05-11] MEDS: Fluticasone 0.05% 1 SPRAY NASAL.SRY 2 SPRAY NASAL (05:24)
[2021-05-11] MEDS: Menthol/Lanolin/Calamine/Znox 113 GM Tube 1 APPLIC TOPICAL ×2 (05:24→18:01)
[2021-05-11] MEDS: Fluticasone Propionate 110 MCG AER.W.ADAP 2 PUFF INHALATION ×2 (05:25→17:08)
[2021-05-11] MEDS: FLUoxetine 10 MG Capsule PO (05:25)
[2021-05-11] MEDS: hydroCHLOROthiazide 12.5mg 12.5 MG PO (05:26)
[2021-05-11] MEDS: APIXABAN 5 MG TABLET PO ×2 (05:26→17:08)
[2021-05-11] MEDS: guaiFENesin 1,200 MG Tablet 1200 MG PO ×2 (05:26→17:09)
[2021-05-11] MEDS: amLODIPine 10 MG Tablet PO (05:26)
[2021-05-11] MEDS: Senna/Docusate Sodium 1 Tablet PO (05:26)
[2021-05-11 07:43] VITALS: O2SAT 94
[2021-05-11] MEDS: Acetaminophen 500 MG Tablet 1000 MG PO ×2 (12:19→22:33)
[2021-05-11 14:12] VITALS: BP 113/50; PULSE 88; RESP 18; TEMP 36.2; O2SAT 99
[2021-05-11] MEDS: LORazepam 0.5 MG Tablet PO (21:27)
[2021-05-11] MEDS: Montelukast 10 MG Tablet PO (21:27)
[2021-05-11] MEDS: Gabapentin 300 MG Capsule PO (21:28)
[2021-05-11 21:45] VITALS: O2SAT 95
[2021-05-11] MEDS: oxyCODONE 5 MG Tablet PO (22:33)
[2021-05-12] MEDS: amLODIPine 10 MG Tablet PO (05:43)
[2021-05-12] MEDS: FLUoxetine 10 MG Capsule PO (05:43)
[2021-05-12] MEDS: guaiFENesin 1,200 MG Tablet 1200 MG PO ×2 (05:43→18:36)
[2021-05-12] MEDS: hydroCHLOROthiazide 12.5mg 12.5 MG PO (05:43)
[2021-05-12] MEDS: Polyethylene Glycol 3350 17 GM PACKET PO (05:44)
[2021-05-12] MEDS: APIXABAN 5 MG TABLET PO ×2 (05:44→18:36)
[2021-05-12] MEDS: Menthol/Lanolin/Calamine/Znox 113 GM Tube 1 APPLIC TOPICAL ×2 (05:44→18:37)
[2021-05-12] MEDS: Azelastine HCl NASAL.SRY 1 SPRAY NASAL ×2 (05:45→18:37)
[2021-05-12] MEDS: Fluticasone Propionate 110 MCG AER.W.ADAP 2 PUFF INHALATION ×2 (05:45→18:37)
[2021-05-12] MEDS: Fluticasone 0.05% 1 SPRAY NASAL.SRY 2 SPRAY NASAL (05:46)
[2021-05-12 05:47] VITALS: BP 140/75; PULSE 67
[2021-05-12 05:53] LABS: Absolute Neutrophil Count 4.8 X10^3/uL (2.0-7.7); Basophil# 0.07 X10^3/uL; Eosinophil# 0.15 X10^3/uL; Eosinophils% 2.1 % (0-5); Hematocrit 39.3 % (37-47); Hemoglobin 12.9 g/dL (12.0-15.0); Lymphocyte % 20.7 % (19-41); Mean Corp Hgb Conc 32.8 g/dL (32-36); Mean Corpuscular Hgb 30.2 pg (27.0-32.0); Mean Platelet Vol. 10.8 fl (6.2-12.0); Monocyte# 0.64 X10^3/uL; Monocyte% 8.8 % (0-10); NRBC Flagged by Analyzer 0 % (0-5); Neutrophil # 4.83 X10^3/uL (2.7-7.7); Neutrophil % 66.7 % (47-70); Platelet Count 246 K/mm3 (150-450); RBC Distribution Width CV 13.4 % (11.6-14.6); RBC Distribution Width SD 45.7 fl (35.1-43.9); Red Blood Count 4.27 M/mm3 (4.2-5.4); White Blood Count 7.2 K/mm3 (4.4-11.0)
[2021-05-12 06:16] LABS: Anion Gap 7 (5-15); BUN 15 mg/dL (7-18); Calcium,Total 8.8 mg/dL (8.5-10.1); Chloride 105 mmol/L (98-107); Glucose 103 mg/dL (74-106); Sodium Level 141 mmol/L (136-145)
[2021-05-12 07:36] VITALS: O2SAT 92
[2021-05-12] MEDS: MENTHOL 226.8 GM JAR 1 APPLIC TOPICAL ×2 (11:20→16:00)
[2021-05-12] MEDS: Acetaminophen 500 MG Tablet 1000 MG PO ×2 (11:26→22:00)
[2021-05-12] MEDS: oxyCODONE 5 MG Tablet PO ×3 (11:27→22:01)
[2021-05-12 14:06] LABS: BUN/Creat Ratio 15.3 RATIO (10-20); Creatinine, Serum 0.98 mg/dL (0.55-1.02); EST Glomerular Filtration Rate 61 mL/min (>60); Est Glom Filt Rate - Afr Amer 74 mL/min (>60); Estimated Creatinine Clearance 43.19 ml/min
[2021-05-12 15:14] VITALS: BP 125/75; PULSE 80; RESP 14; TEMP 36.6; O2SAT 95
--- NOTE | 2021-05-12 15:16 | NURSING ---
Patient states PRN Oxy, Tylenol and blue gel are effective for foot and shoulder pain. Patient remains NWB to left foot. Dressing changes done by doctor. Dressing/splint dry and intact.
[2021-05-12 16:05] VITALS: PULSE 80; RESP 14; O2SAT 94
[2021-05-12] MEDS: Senna/Docusate Sodium 1 Tablet PO (18:36)
[2021-05-12] MEDS: Montelukast 10 MG Tablet PO (19:45)
[2021-05-12] MEDS: LORazepam 0.5 MG Tablet PO (22:01)
[2021-05-13] MEDS: Fluticasone 0.05% 1 SPRAY NASAL.SRY 2 SPRAY NASAL (05:47)
[2021-05-13] MEDS: FLUoxetine 10 MG Capsule PO (05:48)
[2021-05-13] MEDS: amLODIPine 10 MG Tablet PO (05:48)
[2021-05-13] MEDS: hydroCHLOROthiazide 12.5mg 12.5 MG PO (05:48)
[2021-05-13] MEDS: Senna/Docusate Sodium 1 Tablet PO ×2 (05:48→16:22)
[2021-05-13] MEDS: APIXABAN 5 MG TABLET PO ×2 (05:48→16:22)
[2021-05-13] MEDS: oxyCODONE 5 MG Tablet PO ×3 (05:51→21:43)
[2021-05-13] MEDS: Azelastine HCl NASAL.SRY 1 SPRAY NASAL ×2 (05:52→16:21)
[2021-05-13] MEDS: Fluticasone Propionate 110 MCG AER.W.ADAP 2 PUFF INHALATION ×2 (05:53→16:21)
[2021-05-13] MEDS: Menthol/Lanolin/Calamine/Znox 113 GM Tube 1 APPLIC TOPICAL ×2 (05:56→16:23)
[2021-05-13] MEDS: guaiFENesin 1,200 MG Tablet 1200 MG PO ×2 (07:24→16:22)
[2021-05-13] MEDS: Acetaminophen 500 MG Tablet 1000 MG PO (11:17)
[2021-05-13 13:24] VITALS: BP 137/76; PULSE 80; RESP 18; TEMP 37.1; O2SAT 93
[2021-05-13] MEDS: Montelukast 10 MG Tablet PO (20:12)
[2021-05-13 21:00] VITALS: PULSE 86; RESP 16; O2SAT 98
[2021-05-13] MEDS: LORazepam 0.5 MG Tablet PO (21:44)
[2021-05-14] MEDS: guaiFENesin 1,200 MG Tablet 1200 MG PO ×2 (06:03→17:12)
[2021-05-14] MEDS: amLODIPine 10 MG Tablet PO (06:03)
[2021-05-14] MEDS: oxyCODONE 5 MG Tablet PO ×2 (06:03→22:41)
[2021-05-14] MEDS: hydroCHLOROthiazide 12.5mg 12.5 MG PO (06:04)
[2021-05-14] MEDS: APIXABAN 5 MG TABLET PO ×2 (06:04→17:13)
[2021-05-14] MEDS: FLUoxetine 10 MG Capsule PO (06:04)
[2021-05-14 06:05] VITALS: BP 141/71; PULSE 80
[2021-05-14] MEDS: Azelastine HCl NASAL.SRY 1 SPRAY NASAL ×2 (06:05→17:11)
[2021-05-14] MEDS: Fluticasone Propionate 110 MCG AER.W.ADAP 2 PUFF INHALATION ×2 (06:06→17:12)
[2021-05-14] MEDS: Fluticasone 0.05% 1 SPRAY NASAL.SRY 2 SPRAY NASAL (06:07)
--- NOTE | 2021-05-14 07:41 | PCM.TCUNOT ---
Subjective Subjective 66 year old female with osteoarthritis left knee, for procedure only. After informed consent, left lateral knee marked for landmarks, prepped in sterile manner, anesthesia with vapocoolant spray. Left knee injected with Kenalog 40mg, Lidocaine 1% 1ML using suprapatellar approach. Band-Aid applied. Patient tolerated procedure well, no immediate complications. Objective Data Objective Data Vital Signs: Vital Signs Temp Pulse Resp BP Pulse Ox 98.7 F 80 16 141/71 H 98 05/13/21 13:24 05/14/21 06:05 05/13/21 21:00 05/14/21 06:05 05/13/21 21:00 Oxygen Flow Rate (L/min) 2 Oxygen Delivery Method Room Air Weight: 95.663 kg Intake & Output: Intake and Output for Last 24 Hours 05/12/21 05/13/21 05/14/21 23:59 23:59 23:59 Intake Total 720 / 720 840 / 840 Balance 720 / 720 840 / 840 Lab / Micro Data Result Diagrams: 05/12/21 05:40 05/12/21 05:40 Assessment & Plan Assessment/Plan (1) Osteoarthritis of left knee: PLAN: Corticosteroid injection of left knee as documented above.
--- NOTE | 2021-05-14 10:31 | CASEMGMT ---
Social Work Visited pt. Pt expressed the depression/anxiety meds are working well and would like them to continue. Agreed Dr. will order prescription at discharge and pt to f/u with PCP after. Encouraged to voice to PCP the positive effect of those medications for continuation. Pt agreed. Pt and SW discussed having more check-ins from staff to ensure she doesn't have any needs, even though pt is adlib in room. SW updated staff with request. Encouraged pt to ask for assistance when needed - staff want ensure pt feels supported during stay and not to feel like a burden. Pt appreciative. Explored home situation with . Offered to have conversation with at DC to explain pt's restrictions and unable to assist like she could prior. Pt appreciative and will see if that is needed at time of DC. Pt stated she does get visits from [facility]. Offered continued support and visits as needed. Pt appreciative. SW to continue to follow. Katarzyna Walton, [employer] ARCHITECT INCINERATOR [employer] GENER[employer] SUPERVISOR
[2021-05-14 13:31] VITALS: BP 114/71; PULSE 90; RESP 18; TEMP 36.1; O2SAT 94
--- NOTE | 2021-05-14 15:19 | PCM.PROGNOTE ---
Subjective Subjective Patient relates she is doing well. She relates she received an injection to the left knee this morning. She has no complaints of fever, chills, nausea or vomiting. No calf pain. She relates left foot/ankle is feeling good. Objective Data Objective Data Vital Signs: Vital Signs Temp Pulse Resp BP Pulse Ox 97.0 F L 90 18 114/71 94 05/14/21 13:31 05/14/21 13:31 05/14/21 13:31 05/14/21 13:31 05/14/21 13:31 Oxygen Flow Rate (L/min) 2 Oxygen Delivery Method Room Air Weight: 95.663 kg Intake & Output: Intake and Output for Last 24 Hours 05/12/21 05/13/21 05/14/21 23:59 23:59 23:59 Intake Total 720 / 720 840 / 840 360 / 360 Balance 720 / 720 840 / 840 360 / 360 Lab / Micro Data Result Diagrams: 05/12/21 05:40 05/12/21 05:40 Physical Exam Const alert, oriented x3 and no apparent distress Extremity Extremity Narrative: Left foot/ankle: Incision sites well coapted, healed with no dehiscence, no cellulitis, no drainage, no visible abscess, there is resolved ecchymosis to the ankle, no gapping, no infection, no necrosis, no visible abscess, no crepitus, no fluctuance present, CFT < 2 seconds to all toes with intact pedal pulses, no evidence of ischemia, no calf pain, patient is able to move toes and foot/ankle in all directions. Sensation via light touch intact to the left foot and ankle. No calf pain bilateral, calf soft and supple bilateral. Assessment & Plan Assessment/Plan (1) Plantar fasciitis, left: (2) Left Achilles tendinitis: (3) Other injury of muscle(s) and tendon(s) of peroneal muscle group at lower leg level, left leg, subsequent encounter: PLAN: Evaluation performed. Patient doing well, continues to heal and progress well. Changed dressing - no evidence of infection at this time. Reapplied gauze, kerlix and sherly dressing, applied overlying well padded below knee posterior splint with heel offloaded. Keep clean, dry, and intact. Keep left foot elevated. Keep heel and lateral ankle offloaded. No weightbearing left foot. This was reviewed with patient. We also discussed the anticipated healing time and management including eventual progressive weightbearing status in a cam walker boot possibly at the time frame of one month postoperative. Noted right LE soleus vein DVT - patient is on Eliquis. Podiatry will continue to follow. Please do not hesitate to call if you have any questions.
[2021-05-14] MEDS: Menthol/Lanolin/Calamine/Znox 113 GM Tube 1 APPLIC TOPICAL (17:11)
[2021-05-14] MEDS: Senna/Docusate Sodium 1 Tablet PO (17:12)
[2021-05-14] MEDS: LORazepam 0.5 MG Tablet PO (22:41)
[2021-05-14] MEDS: Montelukast 10 MG Tablet PO (22:41)
[2021-05-15] MEDS: oxyCODONE 5 MG Tablet PO ×3 (05:42→22:47)
[2021-05-15] MEDS: hydroCHLOROthiazide 12.5mg 12.5 MG PO (05:43)
[2021-05-15] MEDS: Fluticasone 0.05% 1 SPRAY NASAL.SRY 2 SPRAY NASAL (05:43)
[2021-05-15] MEDS: guaiFENesin 1,200 MG Tablet 1200 MG PO ×2 (05:43→17:29)
[2021-05-15] MEDS: APIXABAN 5 MG TABLET PO ×2 (05:43→17:29)
[2021-05-15] MEDS: FLUoxetine 10 MG Capsule PO (05:43)
[2021-05-15] MEDS: amLODIPine 10 MG Tablet PO (05:43)
[2021-05-15] MEDS: Fluticasone Propionate 110 MCG AER.W.ADAP 2 PUFF INHALATION ×2 (05:44→17:30)
[2021-05-15] MEDS: Azelastine HCl NASAL.SRY 1 SPRAY NASAL ×2 (05:44→17:29)
[2021-05-15 09:59] VITALS: O2SAT 91
[2021-05-15 13:11] VITALS: BP 134/94; PULSE 78; RESP 14; TEMP 36.8; O2SAT 97
[2021-05-15] MEDS: Acetaminophen 500 MG Tablet 1000 MG PO (18:22)
[2021-05-15] MEDS: MENTHOL 226.8 GM JAR 1 APPLIC TOPICAL (18:22)
[2021-05-15] MEDS: Montelukast 10 MG Tablet PO (20:56)
[2021-05-15] MEDS: LORazepam 0.5 MG Tablet PO (22:46)
[2021-05-15 23:01] VITALS: PULSE 80; RESP 18; O2SAT 94
[2021-05-16] MEDS: Fluticasone 0.05% 1 SPRAY NASAL.SRY 2 SPRAY NASAL (05:44)
[2021-05-16] MEDS: Fluticasone Propionate 110 MCG AER.W.ADAP 2 PUFF INHALATION ×2 (05:44→17:56)
[2021-05-16] MEDS: Azelastine HCl NASAL.SRY 1 SPRAY NASAL ×2 (05:46→17:55)
[2021-05-16] MEDS: oxyCODONE 5 MG Tablet PO ×3 (05:56→22:26)
[2021-05-16] MEDS: Polyethylene Glycol 3350 17 GM PACKET PO (05:56)
[2021-05-16] MEDS: guaiFENesin 1,200 MG Tablet 1200 MG PO ×2 (05:56→17:55)
[2021-05-16] MEDS: Senna/Docusate Sodium 1 Tablet PO (05:56)
[2021-05-16] MEDS: hydroCHLOROthiazide 12.5mg 12.5 MG PO (05:57)
[2021-05-16] MEDS: APIXABAN 5 MG TABLET PO ×2 (05:57→17:55)
[2021-05-16] MEDS: amLODIPine 10 MG Tablet PO (05:58)
[2021-05-16] MEDS: FLUoxetine 10 MG Capsule PO (05:58)
[2021-05-16] MEDS: Acetaminophen 500 MG Tablet 1000 MG PO ×2 (10:47→22:26)
[2021-05-16] MEDS: MENTHOL 226.8 GM JAR 1 APPLIC TOPICAL (10:50)
--- NOTE | 2021-05-16 11:52 | NURSING ---
Patient states dressing is rubbing on heel and ankle. She tries to minimize rubbing, but it continues to be bothersome. Will continue to monitor and leave message with Dr. Del Valle Monday.
[2021-05-16 15:00] VITALS: O2SAT 94
[2021-05-16 15:27] VITALS: BP 134/63; PULSE 74; RESP 18; TEMP 36.6; O2SAT 95
[2021-05-16 16:01] VITALS: PULSE 74; RESP 18; O2SAT 95
[2021-05-16] MEDS: Gabapentin 300 MG Capsule PO (17:55)
[2021-05-16] MEDS: Montelukast 10 MG Tablet PO (22:26)
[2021-05-16] MEDS: LORazepam 0.5 MG Tablet PO (22:27)
[2021-05-17] MEDS: Fluticasone 0.05% 1 SPRAY NASAL.SRY 2 SPRAY NASAL (05:21)
[2021-05-17] MEDS: Fluticasone Propionate 110 MCG AER.W.ADAP 2 PUFF INHALATION ×2 (05:21→17:07)
[2021-05-17] MEDS: Azelastine HCl NASAL.SRY 1 SPRAY NASAL ×2 (05:22→17:07)
[2021-05-17] MEDS: Polyethylene Glycol 3350 17 GM PACKET PO (05:23)
[2021-05-17] MEDS: APIXABAN 5 MG TABLET PO ×2 (05:26→17:07)
[2021-05-17] MEDS: guaiFENesin 1,200 MG Tablet 1200 MG PO ×2 (05:26→17:08)
[2021-05-17] MEDS: hydroCHLOROthiazide 12.5mg 12.5 MG PO (05:26)
[2021-05-17] MEDS: Senna/Docusate Sodium 1 Tablet PO ×2 (05:26→17:08)
[2021-05-17] MEDS: amLODIPine 10 MG Tablet PO (05:26)
[2021-05-17] MEDS: FLUoxetine 10 MG Capsule PO (05:27)
[2021-05-17 07:16] VITALS: O2SAT 95
[2021-05-17] MEDS: oxyCODONE 5 MG Tablet PO ×2 (11:04→22:10)
[2021-05-17] MEDS: Acetaminophen 500 MG Tablet 1000 MG PO (11:04)
--- NOTE | 2021-05-17 11:31 | NURSING ---
Addendum entered by Elodia Mayen 05/17/21 12:40: Dr Del Valle calls back and he states that nursing may remove dressing and resident can wear a High pneumatic CAM walking boot instead. He said to check for any areas of concern or pressure. No weight bearing till Monday and then can start bearing weight with the boot in place. May shower without the boot on. Resident updated but she states that therapy fixed the ELENA wrap and it has helped the areas and feels a lot better. Is requesting to leave the dressing in place and wait on the boot till Monday as planned. Educated that Dr Del Valle wanted us to check for areas of concerns but she states she feels like its ok now and can wait till monday. Original Note: Resident complains of rubbing feeling to LT side of foot and Lt heel since Dr Del Valle redressed and rewrapped dressing on 05/14/21. Dr Del Valle office called and message left in regards to this.
[2021-05-17 15:56] VITALS: BP 133/68; PULSE 78; RESP 17; TEMP 36.5; O2SAT 94
[2021-05-17] MEDS: Montelukast 10 MG Tablet PO (20:06)
[2021-05-17 20:13] VITALS: PULSE 85; RESP 16; O2SAT 95
[2021-05-17] MEDS: LORazepam 0.5 MG Tablet PO (22:09)
[2021-05-17] MEDS: MENTHOL 226.8 GM JAR 1 APPLIC TOPICAL (22:11)
[2021-05-18] MEDS: Menthol/Lanolin/Calamine/Znox 113 GM Tube 1 APPLIC TOPICAL ×2 (04:50→17:39)
[2021-05-18] MEDS: APIXABAN 5 MG TABLET PO ×2 (04:50→17:31)
[2021-05-18] MEDS: Azelastine HCl NASAL.SRY 1 SPRAY NASAL ×2 (04:50→17:30)
[2021-05-18] MEDS: Fluticasone 0.05% 1 SPRAY NASAL.SRY 2 SPRAY NASAL (04:51)
[2021-05-18] MEDS: Fluticasone Propionate 110 MCG AER.W.ADAP 2 PUFF INHALATION ×2 (04:51→17:30)
[2021-05-18] MEDS: hydroCHLOROthiazide 12.5mg 12.5 MG PO (04:52)
[2021-05-18] MEDS: Senna/Docusate Sodium 1 Tablet PO (04:52)
[2021-05-18] MEDS: amLODIPine 10 MG Tablet PO (04:52)
[2021-05-18] MEDS: guaiFENesin 1,200 MG Tablet 1200 MG PO ×2 (04:52→17:31)
[2021-05-18] MEDS: Polyethylene Glycol 3350 17 GM PACKET PO (04:52)
[2021-05-18] MEDS: FLUoxetine 10 MG Capsule PO (04:52)
[2021-05-18 04:57] VITALS: BP 136/80; PULSE 80; RESP 12; O2SAT 98
[2021-05-18 10:09] VITALS: O2SAT 98
--- NOTE | 2021-05-18 13:40 | NURSING ---
message left with Dr Del Valle office regarding boot order, TCU unable to get CAM boot while here. awaiting return call to see if DR Del Valle can order for pt.
[2021-05-18] MEDS: oxyCODONE 5 MG Tablet PO ×2 (14:05→22:52)
[2021-05-18] MEDS: Acetaminophen 500 MG Tablet 1000 MG PO ×2 (14:06→22:53)
[2021-05-18] MEDS: MENTHOL 226.8 GM JAR 1 APPLIC TOPICAL (14:07)
--- NOTE | 2021-05-18 15:18 | CASEMGMT ---
Social Work Spoke with pt about DC plans. Dr. Del Valle ordered a walking boot for pt to wear 05/21. Therapy would like to work with pt with boot on 05/24 and okay with DC 05/25. Pt agreeable with plan. Pt denies any continued therapy or DME needs at DC. Family to transport. Plan: DC home with 05/25, with no needs Katarzyna Walton, KIRSTEN MCCORDW
[2021-05-18 16:40] VITALS: BP 139/66; PULSE 84; RESP 18; TEMP 36.7; O2SAT 94
[2021-05-18 17:40] VITALS: PULSE 84; RESP 18; O2SAT 94
[2021-05-18] MEDS: LORazepam 0.5 MG Tablet PO (22:52)
[2021-05-18] MEDS: Montelukast 10 MG Tablet PO (22:52)
[2021-05-19 04:56] LABS: Absolute Lymphocyte Count 1.45 X10^3/uL (0.83-4.51); Absolute Neutrophil Count 4.4 X10^3/uL (2.0-7.7); Basophil# 0.05 X10^3/uL; Basophil% 0.8 % (0-1); Eosinophil# 0.12 X10^3/uL; Eosinophils% 1.8 % (0-5); Hematocrit 39.4 % (37-47); Hemoglobin 12.7 g/dL (12.0-15.0); Lymphocyte # 1.45 X10^3/ul (0.83-4.51); Lymphocyte % 21.8 % (19-41); Mean Corp Hgb Conc 32.2 g/dL (32-36); Mean Corpuscular Hgb 29.9 pg (27.0-32.0); Mean Corpuscular Volume 92.7 fL (81-99); Mean Platelet Vol. 10.9 fl (6.2-12.0); Monocyte# 0.63 X10^3/uL; Monocyte% 9.5 % (0-10); NRBC Flagged by Analyzer 0 % (0-5); Neutrophil # 4.36 X10^3/uL (2.7-7.7); Neutrophil % 65.6 % (47-70); Platelet Count 244 K/mm3 (150-450); RBC Distribution Width CV 13.4 % (11.6-14.6); RBC Distribution Width SD 45.6 fl (35.1-43.9); Red Blood Count 4.25 M/mm3 (4.2-5.4); White Blood Count 6.6 K/mm3 (4.4-11.0)
[2021-05-19 05:19] LABS: Anion Gap 6 (5-15); BUN 13 mg/dL (7-18); BUN/Creat Ratio 23.9 RATIO (10-20); Calcium,Total 8.8 mg/dL (8.5-10.1); Chloride 105 mmol/L (98-107); Creatinine, Serum 0.54 mg/dL (0.55-1.02); EST Glomerular Filtration Rate 119 mL/min (>60); Est Glom Filt Rate - Afr Amer 144 mL/min (>60); Estimated Creatinine Clearance 78.38 ml/min; Glucose 96 mg/dL (74-106); Potassium 3.8 mmol/L (3.5-5.1); Sodium Level 140 mmol/L (136-145)
[2021-05-19] MEDS: Fluticasone 0.05% 1 SPRAY NASAL.SRY 2 SPRAY NASAL (05:56)
[2021-05-19] MEDS: oxyCODONE 5 MG Tablet PO (05:57)
[2021-05-19] MEDS: Azelastine HCl NASAL.SRY 1 SPRAY NASAL ×2 (05:57→16:57)
[2021-05-19] MEDS: hydroCHLOROthiazide 12.5mg 12.5 MG PO (05:58)
[2021-05-19] MEDS: guaiFENesin 1,200 MG Tablet 1200 MG PO ×2 (05:58→16:57)
[2021-05-19] MEDS: Acetaminophen 500 MG Tablet 1000 MG PO ×2 (05:58→14:34)
[2021-05-19] MEDS: amLODIPine 10 MG Tablet PO (05:58)
[2021-05-19] MEDS: APIXABAN 5 MG TABLET PO ×2 (05:58→16:57)
[2021-05-19] MEDS: FLUoxetine 10 MG Capsule PO (05:59)
[2021-05-19] MEDS: Fluticasone Propionate 110 MCG AER.W.ADAP 2 PUFF INHALATION ×2 (06:02→16:58)
[2021-05-19] MEDS: Menthol/Lanolin/Calamine/Znox 113 GM Tube 1 APPLIC TOPICAL ×2 (06:02→16:59)
[2021-05-19] MEDS: LORazepam 0.5 MG Tablet PO ×2 (11:38→20:25)
[2021-05-19 15:26] VITALS: BP 137/79; PULSE 80; RESP 20; TEMP 37.1; O2SAT 95
[2021-05-19 20:18] VITALS: O2SAT 96
[2021-05-19] MEDS: Gabapentin 300 MG Capsule PO (20:25)
[2021-05-19] MEDS: Montelukast 10 MG Tablet PO (20:26)
[2021-05-20 05:08] VITALS: BP 144/82; PULSE 73
[2021-05-20] MEDS: Acetaminophen 500 MG Tablet 1000 MG PO ×2 (05:08→13:03)
[2021-05-20] MEDS: APIXABAN 5 MG TABLET PO ×2 (05:09→17:46)
[2021-05-20] MEDS: FLUoxetine 10 MG Capsule PO (05:09)
[2021-05-20] MEDS: amLODIPine 10 MG Tablet PO (05:09)
[2021-05-20] MEDS: Polyethylene Glycol 3350 17 GM PACKET PO (05:09)
[2021-05-20] MEDS: Azelastine HCl NASAL.SRY 1 SPRAY NASAL ×2 (05:09→17:45)
[2021-05-20] MEDS: guaiFENesin 1,200 MG Tablet 1200 MG PO ×2 (05:09→17:46)
[2021-05-20] MEDS: Senna/Docusate Sodium 1 Tablet PO (05:09)
[2021-05-20] MEDS: hydroCHLOROthiazide 12.5mg 12.5 MG PO (05:09)
[2021-05-20] MEDS: Fluticasone 0.05% 1 SPRAY NASAL.SRY 2 SPRAY NASAL (05:10)
[2021-05-20] MEDS: Fluticasone Propionate 110 MCG AER.W.ADAP 2 PUFF INHALATION ×2 (05:11→17:45)
[2021-05-20] MEDS: Menthol/Lanolin/Calamine/Znox 113 GM Tube 1 APPLIC TOPICAL ×2 (05:12→17:44)
--- NOTE | 2021-05-20 06:15 | NURSING ---
in to change dressing.
--- NOTE | 2021-05-20 06:42 | PN_ITS ---
Subjective Subjective Patient relates she is doing well and was seen postoperative left lower extremity peroneal tendon tear repair, Achilles tendon tear repair with spur resection, and plantar fasciotomy. This was performed by Dr. Del Valle on 04-23-2021. She denies complaints of fever, chills, nausea or vomiting, pain, shortness of breath, or chest pain. She relates left foot/ankle is feeling good. She rates her pain at worst a 2 out of 3. She is eager to transition to her cam walker boot. Objective Data Objective Data Vital Signs: Vital Signs Temp Pulse Resp BP Pulse Ox 98.8 F 73 20 H 144/82 H 96 05/19/21 15:26 05/20/21 05:08 05/19/21 15:26 05/20/21 05:08 05/19/21 20:18 Oxygen Flow Rate (L/min) 3 Oxygen Delivery Method Nasal Cannula Weight: 95.708 kg Intake & Output: Intake and Output for Last 24 Hours 05/18/21 05/19/21 05/20/21 23:59 23:59 23:59 Intake Total 960 / 960 720 / 720 Balance 960 / 960 720 / 720 Lab / Micro Data Result Diagrams: 05/19/21 04:41 05/19/21 04:41 Physical Exam Const alert and oriented x3 General Appearance: cooperative HEENT normocephalic Extremity normal capillary refill Extremity Narrative: no cyanosis, no calf tenderness, diminished pulses muscle wasting noted. no tenderness. General Extremity: edema Skin Skin Narrative: no purulence, no erythema, no streaking, no odor, no infection. Adjacent skin is atrophic. All incision sites are healed including lateral ankle, medial heel, and posterior hindfoot. There is no gapping. Neuro Neuro Narrative: lack of normal epicritic sensation via light touch consistent with neuropathy Assessment & Plan Assessment/Plan (1) Plantar fasciitis, left: (2) Left Achilles tendinitis: (3) Other injury of muscle(s) and tendon(s) of peroneal muscle group at lower leg level, left leg, subsequent encounter: PLAN: Evaluation performed. Patient doing well, continues to heal and progress well. Changed dressing - no evidence of infection at this time. Dressing was discontinued because the incision sites are healed. Ran wrap and posterior mold splint was reapplied. Keep left foot elevated. Keep heel and lateral ankle offloaded. It is okay for transition to up to 50% weightbearing in the left cam walker boot starting 05-21-21. I will confirm with her surgeon if a heel wedge or heel lift is needed. This was reviewed with patient. Noted right LE soleus vein DVT - patient continues on Eliquis. Podiatry will continue to follow. Please do not hesitate to call if you have any questions. Ericka Mac DPM, [facility] [phone]
[2021-05-20] MEDS: oxyCODONE 5 MG Tablet PO ×2 (13:03→21:01)
[2021-05-20 15:28] VITALS: BP 125/74; PULSE 86; RESP 16; TEMP 36.9; O2SAT 94
[2021-05-20] MEDS: Gabapentin 300 MG Capsule PO (17:48)
[2021-05-20 20:50] VITALS: O2SAT 95
[2021-05-20] MEDS: LORazepam 0.5 MG Tablet PO (21:00)
[2021-05-20] MEDS: Montelukast 10 MG Tablet PO (21:00)
--- NOTE | 2021-05-20 21:20 | PCM.DC.SUM ---
Providers Date of Admission: 04/27/21 Primary Care Physician: Dr. Kraey Caceres MD Consultations 04/28/21 08:01 Consult: Podiatry Routine Consulting Provider: Sarbjit Del Valle Reason for Consult: post-surgical. EMERGENT Consult: No MD Notified: Yes Date Notified: 04/28/21 Time Notified: 10:02 Method of Notification: Verbal 05/10/21 17:05 Consult: Pain Management Routine Consulting Provider: Yoan Davis Reason for Consult: Shoulder pain. EMERGENT Consult: No MD Notified: Yes Date Notified: 05/10/21 Time Notified: 17:05 Method of Notification: Page Reason For Visit: DEBRIDE REPAIR [employer]ATCH AND REATTACH ACHILLES Diagnosis Discharge Diagnosis (1) Plantar fasciitis, left: Status: Acute Code(s): M72.2 - Plantar fascial fibromatosis (2) Left Achilles tendinitis: Status: Acute Code(s): M76.62 - Achilles tendinitis, left leg (3) Other injury of muscle(s) and tendon(s) of peroneal muscle group at lower leg level, left leg, subsequent encounter: Status: Acute Code(s): S86.392D - Other injury of muscle(s) and tendon(s) of peroneal muscle group at lower leg level, left leg, subsequent encounter Medications at Discharge Home Medications amlodipine 10 mg PO DAILY 09/25/18 gabapentin 300 mg PO TID PRN PRN 09/25/18 hydrochlorothiazide 12.5 mg PO DAILY 09/25/18 albuterol sulfate 2.5 mg INHALATION Q4H PRN #180 ml 11/16/20 oxygen-air delivery systems 04/02/21 Qvar RediHaler 2 inh INHALATION Q12H 04/27/21 azelastine 1 spray INTRANASAL BID 04/27/21 fluticasone propionate 2 spray INTRANASAL DAILY 04/27/21 guaifenesin 1,200 mg PO BID 04/27/21 montelukast [Singulair] 10 mg PO QPM 04/27/21 acetaminophen 1,000 mg PO Q6H PRN PRN #0 tab 05/20/21 apixaban [Eliquis] 5 mg PO BID 30 Days #60 tab 05/20/21 fluoxetine 10 mg PO DAILY 30 Days #30 cap 05/20/21 lorazepam 0.5 mg PO Q8H PRN PRN 7 Days #21 tab 05/20/21 menthol [Blue Gel] 1 applic TOPICAL 4X/DAY PRN PRN #0 g 05/20/21 menthol-zinc oxide [Calmoseptine] 1 applic TOPICAL BID #0 g 05/20/21 oxycodone 5 mg PO Q4H PRN PRN 7 Days #42 tab 05/20/21 polyethylene glycol 3350 17 g PO DAILY 30 Days #30 ea 05/20/21 sennosides-docusate sodium [Stool Softener-Stimulant Laxat] 1 tab PO BID 30 Days #60 tab 05/20/21 Hospital Course Operations - (Left achills tendon, heel spur, plantar fasciotomy.) Procedures None Summary of Care Provided Minutes Spent on Discharge: 35 Hospital Course: 66 year old female with below past medical history underwent left achilles tendon, heel spur, plantar fasciotomy 04/23/[address] Del Valle, post-operative course complicated by right lower extremity DVT, admitted to TCU with debility, here for rehabilitation, strengthening, prior to discharge home with . Right lower extremity DVT treated with Eliquis 5mg bid thru 07/28/2021. Discharge home with 05/25/2021, No needs. Physical Exam Const alert and oriented x3 General Appearance: cooperative HEENT normocephalic Eyes PERRL and EOMs intact bilaterally Neck supple, no JVD and no carotid bruits Resp normal respiratory effort, normal air movement and clear to auscultation bilaterally Cardio regular rate and regular rhythm GI normal to inspection, nondistended, normoactive bowel sounds, non-tender and non-distended Extremity normal capillary refill General Extremity: Negative for edema Skin no rashes or lesions noted General Skin Exam: no breakdown Psych affect normal Appearance: appropriate Weight / BMI Weight Weight: 95.708 kg ABG / Lab / Microbiology Data Result Diagrams: 05/19/21 04:41 05/19/21 04:41 D/C Instructions Discharge Diet: No restrictions Discharge Activity: Return to Normal Activity, May Shower and Use Walker Weight Bearing Status: Weight bearing as tolerated Call your doctor if you observe: Fever of 101 or Higher, Inability to urinate, Inability to have a bowel movement, Shortness of breath, Dizziness, Fainting spells, Chest pain and Uncontrolled pain Additional Instructions: Discharge home with 05/25/2021, No needs. Meaningful Use Info Meaningful Use Diagnoses (Choose all that apply): None applicable Discharge Plan Admission Admit Date/Time: 04/27/21 18:30 Primary Reason for Your Visit: Debility. Attending Provider: Francesco Leonard Chi Primary Care Provider: Karey Caceres Consulting Providers: Sarbjit Del Valle ; Yoan Davis Instructions Additional Instructions / Restrictions: Discharge home with 05/25/2021, No needs. Discharge Orders/Prescriptions Prescriptions: New acetaminophen 500 mg Tablet 1,000 mg PO Q6H PRN PRN (Reason: Pain Score 1-3) Qty: 0 RF: 0 fluoxetine 10 mg Capsule 10 mg PO DAILY 30 Days Qty: 30 RF: 0 menthol [Blue Gel] 2 % Gel 1 applic topical 4X/DAY PRN PRN (Reason: Pain Score 1-10) Qty: 0 RF: 0 Eliquis 5 mg Tablet 5 mg PO BID 30 Days Qty: 60 RF: 0 polyethylene glycol 3350 17 gram Powder In Packet 17 g PO DAILY 30 Days Qty: 30 RF: 0 lorazepam 0.5 mg Tablet 0.5 mg PO Q8H PRN PRN (Reason: Anxiety) 7 Days Qty: 21 RF: 0 oxycodone 5 mg Tablet 5 mg PO Q4H PRN PRN (Reason: Pain Score 4-10) 7 Days Qty: 42 RF: 0 menthol-zinc oxide [Calmoseptine] 0.44-20.6 % Ointment 1 applic topical BID Qty: 0 RF: 0 sennosides-docusate sodium [Stool Softener-Stimulant Laxat] 8.6-50 mg Tablet 1 tab PO BID 30 Days Qty: 60 RF: 0 Continued albuterol sulfate 2.5 mg /3 mL (0.083 %) solution for nebulization 2.5 mg INHALATION Q4H PRN (Reason: shortness of breath or wheezing) Qty: 180 RF: 6 amlodipine 10 MG tablet 10 mg PO DAILY RF: 0 hydrochlorothiazide 12.5 MG capsule 12.5 mg PO DAILY RF: 0 gabapentin 300 MG capsule 300 mg PO TID PRN PRN (Reason: Pain) RF: 0 azelastine 137 mcg (0.1 %) aerosol,spray 1 spray INTRANASAL BID RF: 0 Qvar RediHaler 80 mcg/actuation HFA aerosol breath activated 2 inh inhalation Q12H RF: 0 fluticasone propionate 50 mcg/actuation spray,suspension 2 spray intranasal DAILY RF: 0 montelukast [Singulair] 10 mg tablet 10 mg PO QPM RF: 0 guaifenesin 1,200 MG tablet extended release 12hr 1,200 mg PO BID RF: 0 Discontinued hydrocodone-acetaminophen 5-325 mg tablet 1 - 2 tab PO Q6H PRN (Reason: pain) 4 Days Qty: 20 RF: 0 Eliquis 5 mg tablet 10 mg PO BID RF: 0 No Action (DME) oxygen-air delivery systems Device MISCELLANEOUS RF: 0 Referrals / Follow Up: Karey Caceres MD [Primary Care Provider] - Disposition Disposition (needs filled in before D/C Order can be placed): Home, Self Care
[2021-05-21] MEDS: Acetaminophen 500 MG Tablet 1000 MG PO ×3 (00:17→18:14)
[2021-05-21] MEDS: Gabapentin 300 MG Capsule PO (00:17)
[2021-05-21] MEDS: Fluticasone 0.05% 1 SPRAY NASAL.SRY 2 SPRAY NASAL (05:17)
[2021-05-21] MEDS: oxyCODONE 5 MG Tablet PO ×3 (05:17→18:13)
[2021-05-21] MEDS: Polyethylene Glycol 3350 17 GM PACKET PO (05:17)
[2021-05-21] MEDS: Azelastine HCl NASAL.SRY 1 SPRAY NASAL ×2 (05:18→18:00)
[2021-05-21] MEDS: Fluticasone Propionate 110 MCG AER.W.ADAP 2 PUFF INHALATION ×2 (05:18→17:59)
[2021-05-21] MEDS: Menthol/Lanolin/Calamine/Znox 113 GM Tube 1 APPLIC TOPICAL ×2 (05:19→18:01)
[2021-05-21] MEDS: amLODIPine 10 MG Tablet PO (05:20)
[2021-05-21] MEDS: Senna/Docusate Sodium 1 Tablet PO (05:20)
[2021-05-21] MEDS: APIXABAN 5 MG TABLET PO ×2 (05:20→17:59)
[2021-05-21] MEDS: guaiFENesin 1,200 MG Tablet 1200 MG PO ×2 (05:20→17:59)
[2021-05-21] MEDS: hydroCHLOROthiazide 12.5mg 12.5 MG PO (05:20)
[2021-05-21] MEDS: FLUoxetine 10 MG Capsule PO (05:20)
[2021-05-21 05:23] VITALS: BP 131/77; PULSE 70
[2021-05-21] MEDS: MENTHOL 226.8 GM JAR 1 APPLIC TOPICAL ×2 (10:44→18:15)
[2021-05-21 14:15] VITALS: O2SAT 91
[2021-05-21 15:01] VITALS: BP 122/56; PULSE 74; RESP 14; TEMP 36.7; O2SAT 95
[2021-05-21 15:05] VITALS: PULSE 74; RESP 14; O2SAT 95
[2021-05-21] MEDS: LORazepam 0.5 MG Tablet PO (20:43)
[2021-05-21] MEDS: Montelukast 10 MG Tablet PO (20:43)
[2021-05-22] MEDS: Azelastine HCl NASAL.SRY 1 SPRAY NASAL ×2 (05:43→17:01)
[2021-05-22] MEDS: Menthol/Lanolin/Calamine/Znox 113 GM Tube 1 APPLIC TOPICAL ×2 (05:44→17:04)
[2021-05-22] MEDS: hydroCHLOROthiazide 12.5mg 12.5 MG PO (05:45)
[2021-05-22] MEDS: Polyethylene Glycol 3350 17 GM PACKET PO (05:45)
[2021-05-22] MEDS: APIXABAN 5 MG TABLET PO ×2 (05:45→17:02)
[2021-05-22] MEDS: amLODIPine 10 MG Tablet PO (05:46)
[2021-05-22] MEDS: Fluticasone Propionate 110 MCG AER.W.ADAP 2 PUFF INHALATION ×2 (05:46→17:01)
[2021-05-22] MEDS: FLUoxetine 10 MG Capsule PO (05:46)
[2021-05-22] MEDS: Fluticasone 0.05% 1 SPRAY NASAL.SRY 2 SPRAY NASAL (05:46)
[2021-05-22] MEDS: guaiFENesin 1,200 MG Tablet 1200 MG PO ×2 (05:46→17:02)
[2021-05-22] MEDS: oxyCODONE 5 MG Tablet PO ×4 (05:52→21:05)
[2021-05-22] MEDS: Acetaminophen 500 MG Tablet 1000 MG PO ×3 (05:52→19:26)
[2021-05-22] MEDS: MENTHOL 226.8 GM JAR 1 APPLIC TOPICAL ×2 (11:00→16:51)
[2021-05-22] MEDS: Gabapentin 300 MG Capsule PO (12:50)
[2021-05-22 14:23] VITALS: BP 144/76; PULSE 76; RESP 16; TEMP 37.2; O2SAT 94
[2021-05-22] MEDS: Senna/Docusate Sodium 1 Tablet PO (17:02)
[2021-05-22] MEDS: Montelukast 10 MG Tablet PO (20:12)
[2021-05-22] MEDS: LORazepam 0.5 MG Tablet PO (21:05)
[2021-05-23] MEDS: Azelastine HCl NASAL.SRY 1 SPRAY NASAL ×2 (06:12→17:37)
[2021-05-23] MEDS: APIXABAN 5 MG TABLET PO ×2 (06:13→17:37)
[2021-05-23] MEDS: Menthol/Lanolin/Calamine/Znox 113 GM Tube 1 APPLIC TOPICAL ×2 (06:13→17:38)
[2021-05-23] MEDS: Fluticasone 0.05% 1 SPRAY NASAL.SRY 2 SPRAY NASAL (06:14)
[2021-05-23] MEDS: Fluticasone Propionate 110 MCG AER.W.ADAP 2 PUFF INHALATION ×2 (06:15→17:37)
[2021-05-23] MEDS: hydroCHLOROthiazide 12.5mg 12.5 MG PO (06:15)
[2021-05-23] MEDS: amLODIPine 10 MG Tablet PO (06:16)
[2021-05-23] MEDS: guaiFENesin 1,200 MG Tablet 1200 MG PO ×2 (06:16→17:38)
[2021-05-23] MEDS: FLUoxetine 10 MG Capsule PO (06:16)
--- NOTE | 2021-05-23 09:41 | CPS ---
Patient wears O2 at HS
[2021-05-23] MEDS: oxyCODONE 5 MG Tablet PO ×2 (11:26→17:38)
[2021-05-23] MEDS: Acetaminophen 500 MG Tablet 1000 MG PO ×2 (11:27→17:38)
[2021-05-23 15:46] VITALS: BP 131/69; PULSE 78; RESP 14; TEMP 36.6; O2SAT 96
[2021-05-23] MEDS: MENTHOL 226.8 GM JAR 1 APPLIC TOPICAL (17:38)
[2021-05-23] MEDS: Montelukast 10 MG Tablet PO (21:22)
[2021-05-23] MEDS: LORazepam 0.5 MG Tablet PO (21:31)
[2021-05-24] MEDS: guaiFENesin 1,200 MG Tablet 1200 MG PO ×2 (05:17→17:30)
[2021-05-24] MEDS: APIXABAN 5 MG TABLET PO ×2 (05:18→17:30)
[2021-05-24] MEDS: FLUoxetine 10 MG Capsule PO (05:18)
[2021-05-24] MEDS: amLODIPine 10 MG Tablet PO (05:18)
[2021-05-24] MEDS: hydroCHLOROthiazide 12.5mg 12.5 MG PO (05:18)
[2021-05-24] MEDS: Fluticasone 0.05% 1 SPRAY NASAL.SRY 2 SPRAY NASAL (05:19)
[2021-05-24] MEDS: Azelastine HCl NASAL.SRY 1 SPRAY NASAL ×2 (05:19→17:30)
[2021-05-24] MEDS: Fluticasone Propionate 110 MCG AER.W.ADAP 2 PUFF INHALATION ×2 (05:21→17:30)
[2021-05-24] MEDS: Acetaminophen 500 MG Tablet 1000 MG PO (05:26)
[2021-05-24] MEDS: oxyCODONE 5 MG Tablet PO ×3 (05:26→21:08)
[2021-05-24] MEDS: MENTHOL 226.8 GM JAR 1 APPLIC TOPICAL ×2 (05:28→21:09)
[2021-05-24 05:30] VITALS: BP 133/67; PULSE 70; RESP 16; TEMP 36.7; O2SAT 98
--- NOTE | 2021-05-24 13:52 | NURSING ---
message left with dr gupta/mario alberto outpatient receptionist, awaiting return call.
[2021-05-24 15:20] VITALS: BP 139/73; PULSE 82; RESP 16; TEMP 37; O2SAT 95
[2021-05-24] MEDS: Montelukast 10 MG Tablet PO (21:07)
[2021-05-24] MEDS: Gabapentin 300 MG Capsule PO (21:09)
[2021-05-24] MEDS: LORazepam 0.5 MG Tablet PO (21:09)
[2021-05-25] MEDS: Azelastine HCl NASAL.SRY 1 SPRAY NASAL (05:50)
[2021-05-25] MEDS: Fluticasone Propionate 110 MCG AER.W.ADAP 2 PUFF INHALATION (05:50)
[2021-05-25] MEDS: Fluticasone 0.05% 1 SPRAY NASAL.SRY 2 SPRAY NASAL (05:50)
[2021-05-25] MEDS: FLUoxetine 10 MG Capsule PO (05:53)
[2021-05-25] MEDS: hydroCHLOROthiazide 12.5mg 12.5 MG PO (05:53)
[2021-05-25] MEDS: guaiFENesin 1,200 MG Tablet 1200 MG PO (05:53)
[2021-05-25] MEDS: amLODIPine 10 MG Tablet PO (05:53)
[2021-05-25] MEDS: Senna/Docusate Sodium 1 Tablet PO (05:53)
[2021-05-25] MEDS: APIXABAN 5 MG TABLET PO (05:53)
[2021-05-25 05:55] VITALS: BP 124/73; PULSE 67
[2021-05-25] MEDS: Acetaminophen 500 MG Tablet 1000 MG PO (05:59)
[2021-05-25] MEDS: oxyCODONE 5 MG Tablet PO (05:59)
--- NOTE | 2021-05-25 06:46 | PCM.PROGNOTE ---
Subjective Subjective Patient relates she is doing well and was seen postoperative left lower extremity peroneal tendon tear repair, Achilles tendon tear repair with spur resection, and plantar fasciotomy. This was performed by Dr. Del Valle on 04-23-2021. She denies complaints of fever, chills, nausea or vomiting, pain, shortness of breath, or chest pain. She relates left foot/ankle is feeling good. She has been bearing about 50% weight in the cam walker boot and relates this went well. She is scheduled to return home today. Objective Data Objective Data Vital Signs: Vital Signs Temp Pulse Resp BP Pulse Ox 98.6 F 67 16 124/73 H 95 05/24/21 15:20 05/25/21 05:55 05/24/21 15:20 05/25/21 05:55 05/24/21 15:20 Oxygen Flow Rate (L/min) 3 Oxygen Delivery Method Room Air Weight: 95.708 kg Intake & Output: Intake and Output for Last 24 Hours 05/23/21 05/24/21 05/25/21 23:59 23:59 23:59 Intake Total 960 / 960 960 / 960 Balance 960 / 960 960 / 960 Lab / Micro Data Result Diagrams: 05/19/21 04:41 05/19/21 04:41 Physical Exam Const alert, oriented x3 and no apparent distress General Appearance: cooperative HEENT normocephalic Extremity normal capillary refill Extremity Narrative: no cyanosis, no calf tenderness, diminished pulses muscle wasting noted. no tenderness. AROM digits and ankle noted without pain. General Extremity: edema Skin Skin Narrative: no purulence, no erythema, no streaking, no odor, no infection. Adjacent skin is atrophic. All incision sites are healed including lateral ankle, medial heel, and posterior hindfoot. There is no gapping. Neuro Neuro Narrative: lack of normal epicritic sensation via light touch consistent with neuropathy Assessment & Plan Assessment/Plan (1) Plantar fasciitis, left: (2) Left Achilles tendinitis: (3) Other injury of muscle(s) and tendon(s) of peroneal muscle group at lower leg level, left leg, subsequent encounter: PLAN: Evaluation performed. Patient doing well, continues to heal and progress well. No dressing required at this time. Lotion was applied. Ran wrap was reapplied. Okay to bathe and take even a brief bath upon return home. She understands she has absorbable sutures and these do not need to be removed clinically. Keep left foot elevated. Keep heel and lateral ankle offloaded. To continue with partial weightbearing in the cam walker boot. Over the next 2 weeks she was advised to advance to full weightbearing if tolerated. She will follow-up with her surgeon in the outpatient setting in 2 weeks. Noted right LE soleus vein DVT - patient continues on Eliquis. Please do not hesitate to call if you have any questions. Ericka Mac DPM, [facility] [phone]
--- NOTE | 2021-05-25 08:38 | EX.PCM.DISCH ---
Discharge Instructions Diet Discharge Diet: No restrictions Activity Weight Bearing Status: Weight bearing as tolerated (left cam walker; progress to full weight) and Full weight bearing Dressing / Incision Call your doctor if your incision/area has: - (No dressing required. Apply lotion to lower limb and avoid direct application over recently healed surgical scars.) Call your doctor if you observe: Fever of 101 or Higher, Inability to urinate, Inability to have a bowel movement, Shortness of breath, Dizziness, Fainting spells, Chest pain and Uncontrolled pain Follow Up Care Please Follow Up With: Sarbjit Del Valle DPM When: 2 weeks; call [phone] ([facility]) sooner if questions or concerns. Test Results: Test results from this visit will be discussed in further detail at your follow-up appointment, if applicable. Discharge Plan Admission Admit Date/Time: 04/27/21 18:30 Primary Reason for Your Visit: Debility. Attending Provider: Francesco Leonard Chi Primary Care Provider: Karey Caceres Consulting Providers: Sarbjit Del Valle ; Yoan Davis Instructions Additional Instructions / Restrictions: Discharge home with 05/25/2021, No needs. Discharge Orders/Prescriptions Prescriptions: New acetaminophen 500 mg Tablet 1,000 mg PO Q6H PRN PRN (Reason: Pain Score 1-3) Qty: 0 RF: 0 fluoxetine 10 mg Capsule 10 mg PO DAILY 30 Days Qty: 30 RF: 0 menthol [Blue Gel] 2 % Gel 1 applic topical 4X/DAY PRN PRN (Reason: Pain Score 1-10) Qty: 0 RF: 0 Eliquis 5 mg Tablet 5 mg PO BID 30 Days Qty: 60 RF: 0 polyethylene glycol 3350 17 gram Powder In Packet 17 g PO DAILY 30 Days Qty: 30 RF: 0 lorazepam 0.5 mg Tablet 0.5 mg PO Q8H PRN PRN (Reason: Anxiety) 7 Days Qty: 21 RF: 0 oxycodone 5 mg Tablet 5 mg PO Q4H PRN PRN (Reason: Pain Score 4-10) 7 Days Qty: 42 RF: 0 menthol-zinc oxide [Calmoseptine] 0.44-20.6 % Ointment 1 applic topical BID Qty: 0 RF: 0 sennosides-docusate sodium [Stool Softener-Stimulant Laxat] 8.6-50 mg Tablet 1 tab PO BID 30 Days Qty: 60 RF: 0 Continued albuterol sulfate 2.5 mg /3 mL (0.083 %) solution for nebulization 2.5 mg INHALATION Q4H PRN (Reason: shortness of breath or wheezing) Qty: 180 RF: 6 amlodipine 10 MG tablet 10 mg PO DAILY RF: 0 hydrochlorothiazide 12.5 MG capsule 12.5 mg PO DAILY RF: 0 gabapentin 300 MG capsule 300 mg PO TID PRN PRN (Reason: Pain) RF: 0 azelastine 137 mcg (0.1 %) aerosol,spray 1 spray INTRANASAL BID RF: 0 Qvar RediHaler 80 mcg/actuation HFA aerosol breath activated 2 inh inhalation Q12H RF: 0 fluticasone propionate 50 mcg/actuation spray,suspension 2 spray intranasal DAILY RF: 0 montelukast [Singulair] 10 mg tablet 10 mg PO QPM RF: 0 guaifenesin 1,200 MG tablet extended release 12hr 1,200 mg PO BID RF: 0 Discontinued hydrocodone-acetaminophen 5-325 mg tablet 1 - 2 tab PO Q6H PRN (Reason: pain) 4 Days Qty: 20 RF: 0 Eliquis 5 mg tablet 10 mg PO BID RF: 0 No Action (DME) oxygen-air delivery systems Device MISCELLANEOUS RF: 0 Referrals / Follow Up: Karey Caceres MD [Primary Care Provider] - 06/07/21 10:00 am Sarbjit Del Valle DPM [STAFF PHYSICIAN] - 06/08/21 10:00 am Disposition Disposition (needs filled in before D/C Order can be placed): Home, Self Care
[2021-05-25 09:59] VITALS: RESP 18
[2021-05-25 11:00] VITALS: BP 124/67; PULSE 78; RESP 18; TEMP 36.9; O2SAT 95
[2021-05-25] MEDS: COVID-19 VACC, MRNA(PFIZER)/PF 30 MCG/0.3 ML SYRINGE IM (11:49)
== END 2021-05-25 12:30 | disposition home or self-care (01) | DRG 561 ==
PROVIDERS: Admitting Provider Family Medicine Geriatric Medicine; PCP Internal Medicine; Visit Provider Family Medicine Geriatric Medicine
DX: Z47.89 Encounter for other orthopedic aftercare (principal); I82.461 Acute embolism and thrombosis of right calf muscular vein; Z23 Encounter for immunization; J44.9 Chronic obstructive pulmonary disease, unspecified; I10 Essential (primary) hypertension; M19.90 Unspecified osteoarthritis, unspecified site; E78.5 Hyperlipidemia, unspecified; M72.2 Plantar fascial fibromatosis; M76.62 Achilles tendinitis, left leg; F32.A Depression, unspecified; F41.9 Anxiety disorder, unspecified; M77.32 Calcaneal spur, left foot; M17.12 Unilateral primary osteoarthritis, left knee; Z79.899 Other long term (current) drug therapy; Z79.01 Long term (current) use of anticoagulants; Z87.891 Personal history of nicotine dependence; Z99.81 Dependence on supplemental oxygen
CPT/HCPCS: 0004A; 36415; 71046; 73030; 80048; 85025; 91300; 94640; 97110; 97116; 97162; 97166; 97530; 97535; 97802

== ENCOUNTER 2021-07-27 09:43 | Outpatient (CLI) | payer MEDICARE, BC, SELFPAY ==
--- NOTE | 2021-07-27 09:47 | VDLE_ITS ---
Reason For Study: R leg pain RIGHT GSV is normal. CFV is compressible, spontaneous, phasic, competent and demonstrates normal augmentation. FV is compressible, spontaneous, phasic, competent and demonstrates normal augmentation. POP V is compressible, spontaneous, phasic, competent and demonstrates normal augmentation. T/P Trunk is compressible. PTV is compressible. RT PerV is compressible. Soleus V is now compressible. Procedure This is a venous duplex using B-mode, color flow and spectral Doppler. Exam performed in department. The exam was abbreviated due to the COVID 19 protocol. The exam was diagnostic. A preliminary report was called and/or faxed to Dr. Del Valle. VL/Venous Duplex US, Unilateral Interpretation Summary There is no evidence of right lower extremity deep vein thrombosis. Right great saphenous vein appears patent and compressible segmentally. Right soleus deep venous thrombosi s resolved since previous examination of April 27, 2021 Abbreviated COVID-19 protocol utilized Ordering Physician: Sarbjit Del Valle Performed By: Obdulio Youngblood RVT
== END 2021-07-27 23:59 | disposition home or self-care (01) ==
LOC: CVS 09:44
PROVIDERS: PCP Internal Medicine; Referring Provider Podiatrist; Visit Provider Podiatrist
DX: I82.461 Acute embolism and thrombosis of right calf muscular vein (principal); M79.661 Pain in right lower leg
CPT/HCPCS: 93971

== ENCOUNTER 2021-08-02 10:00 | Outpatient (RCR) | payer MEDICARE, BC, SELFPAY ==
--- NOTE | 2021-07-05 09:20 | HP.PTEVAL_ITS ---
Patient's Visit Information MARY STARK is a 66 year old F referred to Physical Therapy by Dr. Sarbjit Del Valle DPM with a diagnosis of L plantar fasciotomy, resection of heel spurs, resection of Jhonny's defor. Date of Evaluation: 07/02/21 Physical Therapist: Nicanor Ham DPT - Visit Plan Frequency: 2-3x /Week Duration: 4-6 Weeks Plan: Start with ROM and 4 way ankle banded. Progress to HEP. Add in walking in shoe with progression as tolerated. Add in ankle/knee/hip strengthening. Progress gait training as tolerated. HEP at IE: calf stretch, 4 way ankle banded. - Subjective Pt. is here today for her initial evaluation with diagnosis of L plantar fasciotomy, resection of heel spurs, resection of Jhonny's deformity, and Achilles and peroneal resection. DOS: 04/23/21. Pt. was on TCU for a few weeks. She arrives today with CAM boot without AD. She is to stay in boot until 07/09/21 when she can wean out into a regular shoe. She reports being in boot on and off for ~2 years with attempts to reduce pain. She reports doing some ankle ROM exercises at home, but not a lot. She does have a DVT in her R calf, being treated with blood thinners. Pt. reports mild increase in symptoms with walking, but is overall doing well. 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 She has to stand for longer periods of time, 7 hour shifts. Pt. is hopeful to get back to all activities without limitations. - Pain L heel Pain Intensity (Out of 10): 0 Pain Intensity Range: 0, 4 Comment: increase - Objective POSTURE: Pt. has good posture in stance. Pt. is able to stand without boot with out issues, but has slight R sided wt. shifting. PALPATION: Pt. has normal healing incision, she does have some hyper sensitivity near all incisions, but not severe. Minimal edema noted. NEURO: Normal sensation and DTR of BLEs. No myotomal effects noted. ROM: R ankle: DF 16deg, PF 49deg, INV: 15deg, EVR 10deg. Knee: 0-0-129deg. L ankle: DF 6deg, PF 39deg, INV 5deg, EVR 2deg. PROM: L ankle: DF 8deg, PF 43deg, INV 8deg, EVR 8deg. Pt. has normal knee ROM noted in LLE. MMT: RLE ankle: 5/5 throughout; knee: 5/5 throughout; hip: flexion 4+/5, abd 4/5, ext 4+/5. LLE ankle: DF 4+/5, PF 4+/5, INV 4/5, EVR 4/5 mild increase NW; knee: ext 5-/5, flexion 5/5; hip- flexion 4+/5, abd 4/5, ext 4+/5 Core stren gth: poor. GAIT: Pt. ambulates with CAM boot, no AD. Pt. has good tolerance with minimal pain. She does have L hip drop and early knee flexion during end phase stance due to boot. Need to work L hip strength/stability. STAIRS: Step to pattern noted. - Balance/Special Test Scores Lower Extremity Functional Score: 24 - Goals Goal 1:: LTG: Pt. to be I with HEP for ROM and strengthening Goal Time Frame: 4-6 Weeks Goal 2:: STG: Pt. to wean from CAM boot to shoe starting Jul 09. Goal Time Frame: 2 Weeks Goal 3:: LTG: Pt. to ambulate with normal gait pattern and good tolerance. Goal Time Frame: 4-6 Weeks Goal 4:: LTG: Pt. to complete 6 MWT with walking at least 1000 feet with 0-1/10 pain in L foot/ankle. Goal Time Frame: 4-6 Weeks Goal 5:: STG: pt. to have increased L ankle DF to at least 12 deg active motion allowing for increased ability to walk and negotiate steps. Goal Time Frame: 2-4 Weeks Goal 6:: LTG: Pt. to have increased L ankle ankle/foot/hip strength to at least 5-/5 allowing for increased ability to complete all ADLs and work related activities. Goal Time Frame: 4-6 Weeks - Rehabilitation Potential Physical Therapy Diagnosis: Pt. has signs and symptoms consistent with L plantar fasciotomy, resection of heel spurs, resection of Jhonny's deformity, and Achilles and peroneal resection. She has subsequent hypomobility, weakness, increased pain and difficulty with walking. Pt. would benefit from PT to address the above limitations progressing back to all functional and work activities. Rehabilitation Potential: Excellent - Anticipated Interventions Patient/Client Instruction: Educate patient on: Condition, Plan of Care, Risk Factors, Benefits of Fitness Program For the Purpose of:: To facilitate caregiver knowledge, To improve self management, To prevent re-injury, To improve ability to perform tasks related to life management, To improve tolerance to ADL's Therapeutic Exercise to Include: Strength training, Power training, Balance training, Postural training, Flexibilty training, Gait and locomotor training, Passive ROM, Active ROM For the Purpose of:: To decrease pain, To increase ROM, To improve nutrient delivery to tissue, To increase oxygenation perfusion, To improve muscle performance and motor function, To improve ability to perform ADL's, To improve health of tissue, To decrease soft tissue restriction, To increase flexibility/ROM Thank you for the opportunity to evaluate your patient. For Medicare and Medicare HMO plans, please review the plan of care and approve it. It will need to be FAXED BACK to us at [phone] for Medicare purposes. For Medicare only, by signing this I certify the plan of care. Please let me know if there are questions or concerns regarding this plan of care. Physician Signature: Date:
--- NOTE | 2021-08-02 12:56 | HP.PTREVAL ---
Dr. Sarbjit Del Valle, DPM, It has been my pleasure to treat MARY STARK over the last 11 visits for L plantar fasciotomy, resection of heel spurs, resection of Jhonny's defor. Please see the progress note below for an update on the physical therapy plan of care! Subjective: Pt. reports having 5/10 pain in her L heel today, which is more today, but has been more in the 2/10 range. She continues to report being ~80% better. She reports being able to do most things well around the house. She is still having tenderness which is what is hindering her improvement. Objective/Function: ROM: good ROM, 14deg into DF, rest normal. MMT: 5/5 throughout RLE. GAIT: She ambulates with out AD. She does have a marked antalgic pattern during L stance phase. She reports minimal pain in her ankle, but is having more pain in her knee. STAIRS: Pt. is able to complete with reciprocal pattern with 1 HR, but prefers to complete with step to pattern due to soreness with descending. Plan Plan: Pt. to follow up with physician in two weeks. Pt. wants to complete HEP on her own at this point in time. She is also following up with PCP about her knee. Her foot is doing well, has some mild soreness, but is having her most issues with her knee. Balance/Gait/Functional tests - Balance/Special Test Scores Lower Extremity Functional Score: 57 Goals Goal 1:: LTG: Pt. to be I with HEP for ROM and strengthening Goal Time Frame: 4-6 Weeks Goal Progress: Goal Met Goal 2:: STG: Pt. to wean from CAM boot to shoe starting Jul 09. Goal Time Frame: 2 Weeks Goal Progress: Goal Met Goal 3:: LTG: Pt. to ambulate with normal gait pattern and good tolerance. Goal Time Frame: 4-6 Weeks Goal Progress: Progressing Goal 4:: LTG: Pt. to complete 6 MWT with walking at least 1000 feet with 0-1/10 pain in L foot/ankle. Goal Time Frame: 4-6 Weeks Goal Progress: Goal Met Goal 5:: STG: pt. to have increased L ankle DF to at least 12 deg active motion allowing for increased ability to walk and negotiate steps. Goal Time Frame: 2-4 Weeks Goal Progress: Goal Met Goal 6:: LTG: Pt. to have increased L ankle ankle/foot/hip strength to at least 5-/5 allowing for increased ability to complete all ADLs and work related activities. Goal Time Frame: 4-6 Weeks Goal Progress: Goal Met Anticipated Interventions Patient/Client Instruction: Educate patient on: Condition, Plan of Care, Risk Factors, Benefits of Fitness Program For the Purpose of:: To facilitate caregiver knowledge, To improve self management, To prevent re-injury, To improve ability to perform tasks related to life management, To improve tolerance to ADL's Therapeutic Exercise to Include: Strength training, Power training, Balance training, Postural training, Flexibilty training, Gait and locomotor training, Passive ROM, Active ROM For the Purpose of:: To decrease pain, To increase ROM, To improve nutrient delivery to tissue, To increase oxygenation perfusion, To improve muscle performance and motor function, To improve ability to perform ADL's, To improve health of tissue, To decrease soft tissue restriction, To increase flexibility/ROM Please do not hesitate to contact me at [phone] by phone or if you have questions or concerns regarding this new plan of care! Sincerely, Nicanor Ham DPT
== END 2021-08-02 19:00 | disposition home or self-care (01) ==
LOC: PT 10:00
PROVIDERS: PCP Internal Medicine; Referring Provider Podiatrist; Visit Provider Podiatrist
DX: Z47.89 Encounter for other orthopedic aftercare (principal)
CPT/HCPCS: 97110; 97161; 97164

== ENCOUNTER 2024-01-19 09:00 | Outpatient (RCR) | payer MEDICARE, BC, SELFPAY ==
--- NOTE | 2023-12-25 08:19 | HP.PTEVAL ---
Patient's Visit Information Visit Information Visit Information: MARY STARK is a 68 year old F referred to Physical Therapy by Walker Rizzo PA-C with a diagnosis of L knee OA, pain. Date of Evaluation: 12/25/23 Physical Therapist: Yogesh Fink, NILAYT, OCS, CSCS Visit Plan Frequency: 2-3x /Week Duration: 4-6 Weeks Plan: 2-3x/week for 4-6 weeks for Aquatic therapy for: knee ROM L , hip and knee sdtrength B, core strength B, progress to I pool or home program IE LAQ and benefits of bike if can get one. Appropriate steps with R only Subjective Subjective: L knee pain, hurting for a couple years. Worsening. Sometimes sharp 10/10 that makes her stop. Has had gel injections and has gotten worse. Needs knee replacement. Will see surgeon next month. Sitting is achy but sharp pains with walking at times or bending and twisting. That happens daily. Sleep is OK. Retired from [employer] and [employer]. Spends day taking care of one year old dog. Cannot walk the dog due to knee pain, has not in months. Lives with son 32. Two story house and climbs steps with difficulty and one step at a time. Basic ADLs dressing, shower, bath I. Has walk in shower. R knee aches now and then. cannot cross leg. Pain L knee medial: Pain Intensity (Out of 10): 1 Pain Intensity Range: 0 and 10 Objective Objective: L antalgia walking into PT adn hesitant with pivotting and bending L. trasfers bed and chair I. steps using L only with rail, painful to use R. Varus in B knees with ambulation L >R. Tender to palpation L medial knee joint. AROM L knee -9 to 110, R knee is -4 to 130. strength L knee ext 3+ and pain, HS 4- and sore, r 4- ext adn flexion. Hip strength flexion 4-, abd 3, ext 3 all B. ankles 4 B patella is stiff B. HS and quads are tight B with + carlos test and -30 90/90 HS test B. reflexes 2/3 patella and achilles sensation LE WNL to gross light touch. Pt gets a number of sharp pain with turning today while walking and pain increases after 300 feet of ambulation from 1/10 to 10/12. Balance/Special Test Scores Lower Extremity Functional Score: 30 Goals Goal 1:: -3 to 115 AROM L knee without pain Goal Time Frame: 4-6 Weeks Goal 2:: walk 400 feet without increased pain or hesitation with turning Goal Time Frame: 4-6 Weeks Goal 3:: I appropriate ex to ready for potential surgery or manage symptoms(pool v home) Goal Time Frame: 4-6 Weeks Goal 4:: steps reciprocal with one rail without pain Goal Time Frame: 4-6 Weeks Goal 5:: Pt able to walk dog regualrly Goal Time Frame: 4-6 Weeks Rehabilitation Potential Physical Therapy Diagnosis: pain in L knee Rehabilitation Potential: Questionable Anticipated Interventions Patient/Client Instruction: Educate patient on: Condition and Plan of Care For the Purpose of:: To decrease pain, To increase ROM, To improve nutrient delivery to tissue, To increase tolerance to activity/condition/position, To improve ability of physical actions for home/community/work/leisure and To improve gait and locomotor functions Therapeutic Exercise to Include: Strength training, Flexibilty training, Gait and locomotor training, In an aquatic setting, Passive ROM and Active ROM For the Purpose of:: To decrease pain, To increase ROM, To improve nutrient delivery to tissue, To improve muscle performance and motor function, To improve ability of physical actions for home/community/work/leisure and To improve gait and locomotor functions Text: Thank you for the opportunity to evaluate your patient. For Medicare and Medicare HMO plans, please review the plan of care and approve it. It will need to be FAXED BACK to us at [phone] for Medicare purposes. For Medicare only, by signing this I certify the plan of care. Please let me know if there are questions or concerns regarding this plan of care. Physician Signature: Date:
--- NOTE | 2024-01-19 09:11 | HP.PTDCSUM ---
Discharge Summary D/C summary: It has been my pleasure to treat MARY STARK referred by Walker Rizzo PA-C, with the diagnosis of L knee OA, pain for a total of 9 visit(s). Discharge Date: 01/19/24 Please see the following information for a summary of their discharge status. Subjective Subjective: Some days really good and other days not so good. Today is painful 7/10 after getting out of bed. Always stiff in bed. Will see ortho next week. Doing home exercises and will do bike out in gym adn continue in pool. Pain L knee medial: Pain Intensity (Out of 10): 5 Overall Improvement % Improvement: 50 Objective Objective/Function: -8 to 115 AROM L knee with pain at both ends and hesitant. Still quite antalgic on L knee with ambulation. Steps are painful on L. Better but frustrated with slow progress. Goals Goal 1:: -3 to 115 AROM L knee without pain Goal Progress: -8-115 painful Goal 2:: walk 400 feet without increased pain or hesitation with turning Goal Progress: Not Progressing Goal 3:: I appropriate ex to ready for potential surgery or manage symptoms(pool v home) Goal Progress: Goal Met Goal 4:: steps reciprocal with one rail without pain Goal Progress: Not Progressing Goal 5:: Pt able to walk dog regualrly Goal Progress: not yet. Plan Plan: d/c to pool I and HEP and approrpiate to see doc next week for other options. D/C Information Discharge Comments: To doctor next week for more aggressive options. d/c sentence: If there are questions or concerns regarding this patient's physical therapy, please feel free to call me at [phone]. Thank you for the referral of this patient. Sincerely, Yogesh Fink, DPT, OCS, CSCS Balance/Gait/Functional tests Balance/Special Test Scores Lower Extremity Functional Score: 29 Improvement % Improvement: 50
== END 2024-01-19 12:45 | disposition home or self-care (01) ==
LOC: PT 09:00
PROVIDERS: PCP Internal Medicine; Referring Provider Physician Assistant Surgical; Visit Provider Physician Assistant Surgical
DX: M17.12 Unilateral primary osteoarthritis, left knee (principal); M25.562 Pain in left knee
CPT/HCPCS: 97113; 97161; 97530

== ENCOUNTER → 2024-04-08 | Outpatient (CLI) | payer MEDICARE, BC, SELFPAY ==
--- NOTE | 2024-04-08 14:14 | VDLE_ITS ---
Reason For Study: LLE Swelling RIGHT LEFT FV is compressible, spontaneous, phasic, GSV is normal. competent and demonstrates normal CFV is compressible, spontaneous, phasic, augmentation. competent, and demonstrates normal Procedure augmentation. This is a venous duplex using B-mode, color FV is compressible, spontaneous, phasic, flow and spectral Doppler. competent and demonstrates normal Exam performed in department. augmentation. The exam was diagnostic. POP V is compressible, spontaneous, phasic, A preliminary report was called and/or faxed competent and demonstrates normal to [facility]. augmentation. T/P Trunk is compressible. PTV is compressible. LT PerV is compressible. VL/Venous Duplex US, Unilateral Interpretation Summary Deep veins of the left lower extremity are patent and compressible segmentally. There is no evidence of left lower extremity deep vein thrombosis. Valvular competence appears intac t within the proximal deep venous system on the left . The left great saphenous vein appears patent a nd compressible segmentally. The right femoral vein is patent and compressible. Ordering Physician: Stephen Ervin Referring Physician: Karey Caceres Performed By: Jamil Lima RVT
== END | disposition home or self-care (01) ==
PROVIDERS: PCP Internal Medicine; Referring Provider Specialist; Visit Provider Specialist
DX: R22.42 Localized swelling, mass and lump, left lower limb (principal)
CPT/HCPCS: 93971

== ENCOUNTER 2024-04-24 11:30 | Emergency (ER) | payer MEDICARE, BC, SELFPAY ==
[2024-04-24 11:31] VITALS: BP 154/76; PULSE 96; RESP 18; TEMP 36.6; O2SAT 94; BMI 43.4
--- NOTE | 2024-04-24 11:45 | VDLE_ITS ---
Reason For Study: Left leg pain Procedure LEFT This is a venous duplex using B-mode, color GSV is normal. flow and spectral Doppler. CFV is compressible, spontaneous, phasic, Exam performed portable in ED. competent, and demonstrates normal A preliminary report was called and/or faxed augmentation. to Dr. Arias. FV is compressible, spontaneous, phasic, competent and demonstrates normal augmentation. POP V is compressible, spontaneous, phasic, competent and demonstrates normal augmentation. T/P Trunk is compressible. PTV is compressible. LT PerV is compressible. VL/Venous Duplex US, Unilateral Interpretation Summary Deep veins of the left lower extremity are patent and compressible segmentally. There is no evidence of left lower extremity deep vein thrombosis. The left great saphenous vein caitlin ears patent and compressible segmentally. Ordering Physician: Boo Arias Referring Physician: Karey Caceres Performed By: Nataliya Roa RVT
--- NOTE | 2024-04-24 11:45 | CT_ITS ---
STUDY: CTA CHEST REASON FOR EXAM: Female, 69 years old. Pulmonary embolism RADIATION DOSAGE (If Supplied By Facility): CTDIvol = ( 10.29 ) mGy, DLP = ( 552.31 ) mGycm TECHNIQUE: The examination was performed with the intravenous administration of IV 100mL Isovue-370. Post-processing of the angiographic images was performed, with multiplanar reformation and 3D reconstruction. Individualized dose optimization techniques were used for this CT. COMPARISON: Comparison made with prior chest radiograph done earlier today. FINDINGS: Normal enhancement of the main pulmonary artery and right and left pulmonary arteries. Normal enhancement of the bilateral peripheral pulmonary arteries. There is no demonstrated pulmonary embolism. Normal thoracic aorta and visualized great vessels. There is no demonstrated aortic dissection. There are calcifications of the coronary arteries. Normal mediastinum. Normal hilar regions. Normal visualized trachea and bronchi. The lungs are well expanded. Minimal increased markings in the lingular segment of the left upper lobe as well as at the lung bases suggesting mild scarring. Normal pleura. Normal chest wall structures. There are degenerative changes of thoracic spine. The patient is status post cholecystectomy. CT/CTA Chest W/WO Contrast IMPRESSION: No evidence of pulmonary embolism. Mild scarring. Coronary artery calcifications. Electronically Signed: Jonathan Mix MD at 12:59 EST ,
--- NOTE | 2024-04-24 11:45 | EKG12_ITS ---
Test Reason : Blood Pressure : */* mmHG Vent. Rate : 77 BPM Atrial Rate : 77 BPM P-R Int : 160 ms QRS Dur : 74 ms QT Int : 386 ms P-R-T Axes : 39 -17 22 degrees QTcB Int : 436 ms Normal sinus rhythm Nonspecific ST abnormality Abnormal ECG Confirmed by RADHIKA GONZALEZ ([id number]), editor in chief newspaper GILMA ALVAREZ ([id number]) on 04/26/2024 12:02:38 PM Referred By: Confirmed By: RADHIKA GONZALEZ
--- NOTE | 2024-04-24 11:46 | ED.VIS.DYS ---
HPI History of Present Illness Chief Complaint: Shortness of Breath Informant: patient Narrative Narrative: 69-year-old female presenting to the emergency room with concerns for DVT/pulmonary embolism. Patient states that she had her left knee replaced at the end of last month with Dr. Ervin. She states that she was seen in the office today and was sent to the emergency room out of concerns for DVT/PE. Patient notes pain over the medial aspect of her left lower leg and 2 distinct areas. She notes that tender to palpation. She states that beginning yesterday she noticed a increase in some shortness of breath and a change in her cough pattern. She notes that the sputum color is changed. She notes a history of asthma and felt herself wheezing yesterday was using nebulizer. She denies any fevers. No pleuritic pain. She had a duplex ultrasound performed about 2 weeks ago that was negative for DVT. [facility] Medical History Wears glasses Wears dentures Depression Anxiety Arthritis High cholesterol Back pain Migraine headache Former smoker On home oxygen therapy Asthma Chronic cough Leg cramps History of pain when walking History of edema Hypertension Degenerative joint disease dyslipidemia Hypertension Asthma with COPD with exacerbation Left acute otitis media COPD exacerbation Home Medications ?Medication ?Instructions ?Recorded ?Last Taken ?Type amlodipine 10 mg tablet 10 mg PO DAILY blood pressure 09/25/18 04/23/21 History gabapentin 300 mg capsule 300 mg PO TID PRN PRN Pain 09/25/18 04/22/21 History hydrochlorothiazide 12.5 mg capsule 12.5 mg PO DAILY diuretic/water 09/25/18 04/22/21 History pill oxygen-air delivery systems 04/02/21 04/22/21 History azelastine 137 mcg (0.1 %) nasal 1 spray intranasal BID allergies 04/27/21 Unknown History spray beclomethasone dipropionate 80 2 inh inhalation Q12H asthma 04/27/21 Unknown History mcg/actuation HFA breath activated aerosol (Qvar RediHaler) fluticasone propionate 50 2 spray intranasal DAILY wheezing 04/27/21 Unknown History mcg/actuation nasal spray,suspension guaifenesin 1,200 mg tablet, 1,200 mg PO BID allergies 04/27/21 Unknown History extended release 12 hr montelukast 10 mg tablet 10 mg PO QPM allergies 04/27/21 Unknown History (Singulair) acetaminophen 500 mg tablet 1,000 mg (2 x 500 mg) PO Q6H PRN 05/20/21 Unknown Rx PRN Pain Score 1-3 #0 tabs apixaban 5 mg tablet (Eliquis) 5 mg PO BID 30 days #60 tabs 05/20/21 Unknown Rx fluoxetine 10 mg capsule 10 mg PO DAILY 30 days #30 caps 05/20/21 Unknown Rx lorazepam 0.5 mg tablet 0.5 mg PO Q8H PRN PRN Anxiety 7 05/20/21 Unknown Rx days #21 tabs menthol 0.44 %-zinc oxide 20.6 % 1 applic topical BID #0 grams 05/20/21 Unknown Rx topical ointment (Calmoseptine) menthol 2 % topical gel (Blue Gel) 1 applic topical 4X/DAY PRN PRN 05/20/21 Unknown Rx Pain Score 1-10 #0 grams oxycodone 5 mg tablet 5 mg PO Q4H PRN PRN Pain Score 05/20/21 Unknown Rx 4-10 7 days #42 tabs polyethylene glycol 3350 17 gram 17 g PO DAILY 30 days #30 ea 05/20/21 Unknown Rx oral powder packet sennosides 8.6 mg-docusate sodium 1 tab PO BID 30 days #60 tabs 05/20/21 Unknown Rx 50 mg tablet (Stool Softener-Stimulant Laxative) apixaban 5 mg tablet (Eliquis) 5 mg PO BID #60 tabs 05/25/21 Unknown Rx fluoxetine 10 mg capsule 10 mg PO DAILY #30 caps 05/25/21 Unknown Rx lorazepam 0.5 mg tablet 0.5 mg PO TID PRN anxiety 30 days 05/25/21 Unknown Rx #90 tabs oxycodone 5 mg tablet 5 mg PO Q4H PRN pain 7 days #42 05/25/21 Unknown Rx tabs polyethylene glycol 3350 17 gram 17 g PO DAILY #30 ea 05/25/21 Unknown Rx oral powder packet (Miralax) sennosides 8.6 mg capsule (senna) 8.6 mg PO BID PRN constipation 30 05/25/21 Unknown Rx days #60 caps albuterol sulfate 2.5 mg/3 mL 2.5 mg (3 mL) inhalation Q4H PRN 11/11/21 Unknown Rx (0.083 %) solution for nebulization shortness of breath or wheezing #180 mL prednisone 20 mg tablet 60 mg (3 x 20 mg) PO DAILY #15 04/24/24 Unknown Rx TABLETS Allergy/AdvReac Type Severity Reaction Status Date / Time levofloxacin (From Levaquin) Allergy Rash Verified 04/24/24 11:33 Sulfa (Sulfonamide Allergy itching as Verified 04/24/24 11:33 Antibiotics) a child Surgical History Hx of colonoscopy Hx laparoscopic cholecystectomy Hx of tubal ligation Social History household members: spouse Smoking Status: Former smoker Tobacco: How many years used: 4 how long ago did patient quit smokin, 0.25ppd second hand exposure: Yes alcohol intake: current alcohol intake frequency: a few times a month Alcohol type: wine details: 1-2 glasses of wine per month. ROS ROS ED Constitutional Constitutional ED: Denies chills, fever(s) or weight loss Eyes Eyes: Denies change in vision or diplopia ENT ENT ED: Denies ear pain, rhinorrhea or sore throat Cardiovascular Cardiovascular: Denies chest pain, orthopnea, palpitations or racing heartbeat Respiratory/Chest Respiratory/Chest: Reports cough, dyspnea, dyspnea on exertion and sputum; Denies orthopnea Gastrointestinal Gastrointestinal: Denies abdominal pain, diarrhea, nausea or vomiting Genitourinary Genitourinary ED: Denies dysuria, hematuria or urinary frequency Musculoskeletal Musculoskeletal: Reports other Details: See history of present illness ; Denies arthralgias or myalgias Integumentary Denies abscess or rash Neurologic Neurologic: Denies headache(s) or weakness Psychiatric Psychiatric: Denies anxiety, depression, suicidal ideation or suicidal thoughts Endocrine Endocrinology: Denies polydipsia, polyphagia or polyuria Allergic/Immunologic Allergic/Immunologic ED: Denies mouth swelling, tongue swelling or urticaria EXAM Physical Exam Const Vital Signs: 04/24/24 11:31 04/24/24 11:56 04/24/24 11:58 Temperature 97.9 F 97.9 F Temperature Source Temporal Temporal Pulse Rate 96 82 Respiratory Rate 18 30 H Respiratory Effort Short of Breath Respiratory Depth Shallow Respiratory Pattern Tachypnea Blood Pressure 154/76 H 120/66 Blood Pressure Mean 102 84 Pulse Ox 94 91 Oxygen Delivery Method Room Air Room Air Room Air 04/24/24 11:59 Temperature Temperature Source Pulse Rate 85 Respiratory Rate 18 Respiratory Effort Respiratory Depth Respiratory Pattern Normal Blood Pressure Blood Pressure Mean Pulse Ox Oxygen Delivery Method Positive well nourished, well developed and obese General Appearance ED: well developed and NAD Nutritional Appearance: obese HEENT Reports normocephalic, head/scalp atraumatic and moist mucous membranes Eyes PERRL and EOMs intact bilaterally Neck no lymphadenopathy, supple and no JVD Resp normal respiratory effort Resp Narrative: Faint end expiratory wheeze left lower lobe Cardio regular rate, regular rhythm and no murmurs GI normal to inspection, nondistended, normoactive bowel sounds and non-tender Palpation: soft Back/Spine no CVA tenderness and normal ROM Extremity Extremity Narrative: Mild swelling of the left lower extremity compared to the right. Tenderness along the medial lateral aspect of the left calf both proximal and distal. No palpable cords. No skin discoloration. There is a healing midline knee incision consistent with recent knee replacement. Neuro oriented x3 and CN's II-XII intact bilaterally Sensorium / Orientation: alert Motor Exam: strength 5/5 throughout Psych mental status grossly normal Mood & Affect: Negative for depressed or tearful Skin no rashes or lesions noted and no wounds MDM MDM MDM Narrative Medical decision making narrative: Differential diagnosis includes but not limited to DVT pulmonary embolism bronchitis asthma exacerbation pleural effusion viral syndrome White count 8.6 creatinine 0.70 glucose 115 troponin is 3. EKG is in normal sinus rhythm with a rate of 77. Duplex ultrasound is negative for DVT. CTA of the chest is negative for infiltrate or pulmonary embolism or effusion. Patient received a breathing treatment repeat examination finds her lungs to be substantially clear. Patient should continue breathing treatments at home. I can write for some prednisone. Follow-up as needed return if worsening History & Record Review Discussion w/independent historian: Patient Lab Data Attestation: I reviewed the patient's lab results. Labs: Laboratory Results - last 24 hr 04/24/24 11:51 WBC 8.6 RBC 4.30 Hgb 12.5 Hct 39.3 MCV 91.4 MCH 29.1 MCHC 31.8 L RDW Std Deviation 43.8 RDW Coeff of Arie 13.1 Plt Count 322 MPV 10.7 Immature Gran % (Auto) 0.600 Neut % (Auto) 70.5 H Lymph % (Auto) 15.0 L [place] % (Auto) 8.8 Eos % (Auto) 4.3 Baso % (Auto) 0.8 Absolute Neuts (auto) 6.0 Absolute Lymphs (auto) 1.28 Nucleated RBC % 0 Sodium 138 Potassium 3.7 Chloride 104 Carbon Dioxide 28.0 Anion Gap 6 BUN 14 Creatinine 0.70 Estim Creat Clear Calc 74.84 Est GFR (MDRD) Af Amer 107 Est GFR (MDRD) Non-Af 89 BUN/Creatinine Ratio 20.1 H Glucose 115 H Calcium 9.0 Troponin I High Sens 3 Radiography Diagnostic Testing: Clinical Impression(s) from Imaging Studies Chest CTA 04/24/24 11:45 IMPRESSION: No evidence of pulmonary embolism. Mild scarring. Coronary artery calcifications. Electronically Signed: Jonathan Mix MD at 12:59 EST , EKG Initial EKG: Attestation: I personally reviewed and interpreted this EKG as follows: Comments: Normal sinus rhythm ventricular rate of 77 bpm Discharge Plan Triage Chief Complaint: Shortness of Breath Other Complaint: Lower Extremity Injury ED Provider: Boo Arias Dx/Rx/DC Orders Clinical Impression: Asthma exacerbation, Acute pain of left lower extremity Instructions: Asthma Prescriptions: New prednisone 20 mg tablet 60 mg PO DAILY Qty: 15 0RF No Action amlodipine 10 MG tablet 10 mg PO DAILY hydrochlorothiazide 12.5 MG capsule 12.5 mg PO DAILY gabapentin 300 MG capsule 300 mg PO TID PRN PRN (Reason: Pain) (DME) oxygen-air delivery systems Device MISCELLANEOUS azelastine 137 mcg (0.1 %) aerosol,spray 1 spray INTRANASAL BID Rx Instructions: administer into each nostril Qvar RediHaler 80 mcg/actuation HFA aerosol breath activated 2 inh inhalation Q12H fluticasone propionate 50 mcg/actuation spray,suspension 2 spray intranasal DAILY montelukast [Singulair] 10 mg tablet 10 mg PO QPM guaifenesin 1,200 MG tablet extended release 12hr 1,200 mg PO BID acetaminophen 500 mg Tablet 1,000 mg PO Q6H PRN PRN (Reason: Pain Score 1-3) Qty: 0 0RF fluoxetine 10 mg Capsule 10 mg PO DAILY 30 Days Qty: 30 0RF menthol [Blue Gel] 2 % Gel 1 applic topical 4X/DAY PRN PRN (Reason: Pain Score 1-10) Qty: 0 0RF Eliquis 5 mg Tablet 5 mg PO BID 30 Days Qty: 60 0RF polyethylene glycol 3350 17 gram Powder In Packet 17 g PO DAILY 30 Days Qty: 30 0RF lorazepam 0.5 mg Tablet 0.5 mg PO Q8H PRN PRN (Reason: Anxiety) 7 Days Qty: 21 0RF oxycodone 5 mg Tablet 5 mg PO Q4H PRN PRN (Reason: Pain Score 4-10) 7 Days Qty: 42 0RF menthol-zinc oxide [Calmoseptine] 0.44-20.6 % Ointment 1 applic topical BID Qty: 0 0RF Protocol: *Topical Application Instructions APPLICATION INSTRUCTIONS: apply to buttocks sennosides-docusate sodium [Stool Softener-Stimulant Laxat] 8.6-50 mg Tablet 1 tab PO BID 30 Days Qty: 60 0RF senna 8.6 mg capsule 8.6 mg PO BID PRN (Reason: constipation) 30 Days Qty: 60 0RF Eliquis 5 mg tablet 5 mg PO BID Qty: 60 0RF fluoxetine 10 mg capsule 10 mg PO DAILY Qty: 30 0RF lorazepam 0.5 mg tablet 0.5 mg PO TID PRN (Reason: anxiety) 30 Days Qty: 90 0RF oxycodone 5 mg tablet 5 mg PO Q4H PRN (Reason: pain) 7 Days Qty: 42 0RF polyethylene glycol 3350 [Miralax] 17 gram powder in packet 17 g PO DAILY Qty: 30 0RF albuterol sulfate 2.5 mg /3 mL (0.083 %) solution for nebulization 2.5 mg INHALATION Q4H PRN (Reason: shortness of breath or wheezing) Qty: 180 6RF Rx Instructions: J44.9 COPD J45.909 ASTHMA Primary Care Provider: Karey Caceres Referrals: Karey Caceres MD [Primary Care Provider] - 3-5 Days if not improving Print Language: Greenlandic Disposition Disposition: Home, Self Care
[2024-04-24 11:56] VITALS: O2SAT 88
[2024-04-24 11:58] VITALS: BP 120/66; PULSE 82; RESP 30; TEMP 36.6; O2SAT 91
[2024-04-24 11:59] VITALS: PULSE 85; RESP 18
[2024-04-24] MEDS: Ipratropium/Albuterol Sulfate 3 ML AMPUL.NEB INHALATION (11:59)
[2024-04-24 12:02] LABS: Absolute Lymphocyte Count 1.28 X10^3/uL (0.83-4.51); Basophil# 0.07 X10^3/uL; Basophil% 0.8 % (0-1); Eosinophil# 0.37 X10^3/uL; Eosinophils% 4.3 % (0-5); Hematocrit 39.3 % (37-47); Hemoglobin 12.5 g/dL (12.0-15.0); Lymphocyte # 1.28 X10^3/ul (0.83-4.51); Mean Corp Hgb Conc 31.8 g/dL (32-36); Mean Corpuscular Hgb 29.1 pg (27.0-32.0); Mean Corpuscular Volume 91.4 fL (81-99); Mean Platelet Vol. 10.7 fl (6.2-12.0); Monocyte# 0.75 X10^3/uL; Monocyte% 8.8 % (0-10); NRBC Flagged by Analyzer 0 % (0-5); Neutrophil # 6.03 X10^3/uL (2.7-7.7); Neutrophil % 70.5 % (47-70); Platelet Count 322 K/mm3 (150-450); RBC Distribution Width CV 13.1 % (11.6-14.6); RBC Distribution Width SD 43.8 fl (35.1-43.9); White Blood Count 8.6 K/mm3 (4.4-11.0)
[2024-04-24 12:17] LABS: Anion Gap 6 (5-15); BUN 14 mg/dL (7-18); BUN/Creat Ratio 20.1 RATIO (10-20); Chloride 104 mmol/L (98-107); EST Glomerular Filtration Rate 89 mL/min (>60); Est Glom Filt Rate - Afr Amer 107 mL/min (>60); Estimated Creatinine Clearance 74.84 ml/min; Glucose 115 mg/dL (74-106); Potassium 3.7 mmol/L (3.5-5.1); Sodium Level 138 mmol/L (136-145); Troponin-I HS 3 pg/mL (3.0-54.0)
[2024-04-24 14:38] VITALS: BP 111/66; PULSE 84; RESP 18; TEMP 36.6; O2SAT 97
== END 2024-04-24 14:40 | disposition home or self-care (01) ==
PROVIDERS: Emergency Provider Emergency Medicine; PCP Internal Medicine; Visit Provider Emergency Medicine
DX: J45.901 Unspecified asthma with (acute) exacerbation (principal); J44.1 Chronic obstructive pulmonary disease with (acute) exacerbation; Z68.41 Body mass index [BMI] 40.0-44.9, adult; E78.00 Pure hypercholesterolemia, unspecified; I10 Essential (primary) hypertension; M79.605 Pain in left leg; E66.9 Obesity, unspecified; Z79.01 Long term (current) use of anticoagulants; Z79.51 Long term (current) use of inhaled steroids; Z79.899 Other long term (current) drug therapy; Z87.891 Personal history of nicotine dependence
CPT/HCPCS: 71275; 80048; 84484; 85025; 93005; 93971; 94640; 99285; Q9967; A4216